=== PATIENT | male | born 1985 | race Hispanic/Latino ===

== ENCOUNTER → 2019-10-13 | Outpatient (REF) | payer OTHER ==
[2019-10-13 13:55] LABS: BASO % 0.4 % (0.0-1.0); EOS # 0.1 10^3/uL (0.0-0.5); EOS % 1.1 % (0.0-3.0); HEMATOCRIT 51.2 % (42.0-52.0); HEMOGLOBIN 17.1 g/dl (13.5-17.5); LYMPH # 2.3 10^3/uL (1.5-5.0); LYMPH % 29.3 % (24.0-44.0); MEAN CORPUSCULAR HEMOGLOBIN 31.1 pg (27.0-33.0); MEAN CORPUSCULAR HGB CONC 33.4 g/dl (32.0-36.5); MEAN CORPUSCULAR VOLUME 93.3 fl (80.0-96.0); MONO # 0.4 10^3/uL (0.0-0.8); MONO % 5.6 % (0.0-5.0); NEUTROPHILS % 63.2 % (36.0-66.0); PLATELET COUNT, AUTOMATED 251 10^3/uL (150-450); RED BLOOD COUNT 5.49 10^6/uL (4.30-6.10); WHITE BLOOD COUNT 7.9 10^3/uL (4.0-10.0)
[2019-10-16 09:11] LABS: D001-IgE D pteronyssinus 5.45 kU/L (Class IV); E005-IgE Dog Dander 8.29 kU/L (Class IV); G002-IgE Bermuda Grass 1.58 kU/L (Class III); G008-IgE Kentucky Bluegrass 3.51 kU/L (Class III); M001-IgE Penicillium chrysogen < 0.10 kU/L (Class 0); M002 IgE Cladosporium herbaru < 0.10 kU/L (Class 0); M003 IgE Aspergillus fumigatu < 0.10 kU/L (Class 0); M006-IgE Alternaria alternata < 0.10 kU/L (Class 0); T001-IgE Maple/Box Elder 0.45 kU/L (Class I); T006-IgE Cedar, Mountain 4.89 kU/L (Class IV); T007-IgE Oak, White 2.79 kU/L (Class III); T008-IgE Elm, American 0.11 kU/L (Class 0/I); T015-IgE Ash, White 0.47 kU/L (Class I); T041-IgE Hickory, White 1.13 kU/L (Class II); T070-IgE White Mulberry < 0.10 kU/L (Class 0); W001-IgE Ragweed, Short 5.27 kU/L (Class IV); W009-IgE Plantain, English 0.13 kU/L (Class 0/I); W014-IgE Pigweed, Rough < 0.10 kU/L (Class 0)
== END ==
LOC: M LAB REF 12:54
PROVIDERS: ATTEND Physician Assistant
DX: J45.998 Other asthma (principal)

== ENCOUNTER → 2019-10-13 | Outpatient (CLI) | payer OTHER ==
--- NOTE | 2019-10-14 01:44 | REPPI ---
Clinical: Asthma . Comparison: None . Technique: PA and lateral. Findings: The mediastinum and cardiac silhouette are normal. The lung evans are clear and without acute consolidation, effusion, or pneumothorax. The skeletal structures are intact and normal. Impression: 1. No acute cardiopulmonary process. Electronically Signed by Harris Tena MD 10/14/2019 01:35 A
== END ==
LOC: M PLAIMG 11:54
PROVIDERS: ATTEND Physician Assistant
DX: J45.998 Other asthma (principal)

== ENCOUNTER 2020-10-11 13:57 | Inpatient (IN) | payer OTHER ==
[~2020-10-11] VITALS: Ht 177.8 cm; Wt 99.1 kg
[2020-10-11] MEDS ORDERED: methylPREDNISolone 125MG 2ML VIAL IV ONE (14:15)
[2020-10-11] MEDS: COMBIVENT RESPIMAT 100-20MCG INHALER 4GM INH SCH ×3 (14:29→14:59)
[2020-10-11] MEDS ORDERED: ACETAMINOPHEN TAB 650MG DOSE (2X325MG) PO ONE (14:30)
--- NOTE | 2020-10-11 14:35 | REP ---
INDICATION: Coronavirus workup. COMPARISON: 13 October 2019. TECHNIQUE: Portable upright AP chest radiograph. FINDINGS: Monitoring electrodes are visible. There are patchy peripheral interstitial infiltrates bilaterally. These are new compared with the prior study. Pleural angles are sharp. Heart is not enlarged. No bony abnormality is seen. Commonly reported imaging features of COVID 19 pneumonia are present. Other processes such as influenza pneumonia, drug toxicity, and connective tissue disease can produce a similar pattern. IMPRESSION: Multiple bilateral areas of peripheral interstitial infiltrate have developed consistent with pneumonia.. <Electronically signed by Jon Dunn > 10/11/20 [id number]
--- OUTSIDE RECORDS SUMMARY | 2020-10-11 14:40 | CCD | Continuity of Care Document ---
Author Author Robert GOLDBERG PA Organization Unknown Address [address] [place] [address] Phone [phone] Care Team Providers Care Air Conditioning Engineer Name Role Phone Pascual Cuevas MD AUTM Unavailable [place] Provider AUTM [phone] Problems Active Problems Provider Date Uncomplicated moderate persistent asthma NENO Davey Onset: 02/08/2020 Social History Type Date Description Comments Sex Unknown Tobacco Use Reviewed: 07/30/20 Non Smoker Smoking Status Reviewed: 07/30/20 Non Smoker Allergies, Adverse Reactions, Alerts Active Allergies Reaction Severity Comments Date Shellfish-Derived Products 1 09/29/2019 Iodine / Sodium Iodide 07/30 Inactive Allergies NKDA 10/13/2019 Medications Active Medications SIG Qnty Indications Ordering Provide r Date Flovent HFA 220mcg/Act Aerosol 2 puff twice a day 12gm J45.40 Delfino Grullon D.O. 12/26/2019 Spiriva Handihaler 18mcg Capsules 1 cap inhalation every in the morning 30caps J45.998 Delfino Grullon D.O. 10/13/2019 Albuterol Sulfate HFA 108(90Base) mcg/Act Aerosol inhale two puffs by mouth four times a day as needed 8.500gm Delfino Grullon D.O. Zyrtec Allergy 10mg Tablets 1 tab by mouth every day 30tabs Unknown Claritin 10mg Tablets 1 tab by mouth every day 30tabs Unknown Advair Diskus 500-50mcg/Dose Aeros ol 1 puff twice a day 60units Iram Loja.O. CPAP Device Unknown Singulair 10mg Tablets 1 by mouth every night at bedtime 30tabs Delfino Grullon D.O. Immunizations Description No Information Available Vital Signs Date Vital Result Comment 07/30/2020 1:11pm BP Systolic 130 mmHg BP Diastolic 90 mmHg Heart Rate 107 /min O2 % BldC Oximetry 97 % Height 69 inches 5'9" Weight 232.00 lb in uniform BMI (Body Mass Index) 34.3 kg/m2 [place] Body Weight 160 lb Weight 105.235 kg 04/09/2020 3:19pm BP Systolic 138 mmHg BP Diastolic 92 mmHg Heart Rate 91 /min O2 % BldC Oximetry 97 % Body Temperature 96.7 F Height 69 inches 5'9" Weight 232.25 lb BMI (Body Mass Index) 34.3 kg/m2 [place] Body Weight 160 lb Weight 105.349 kg Results Test Acquired Date Facility Test Result H/L Range Note FVL/Cedric 04/09/2020 [facility] SEE IMAGE FVC-Pred 5.26 L FVC-Pre 4.90 L FVC-%Pred-Pre 93 L FVC-LLN 4.35 L Fev1-Pred 4.27 L Fev1-Pre 3.42 L Fev1-%Pred-Pre 80 L Fev1-LLN 3.50 L Fev6-Pred 5.18 L Fev6-Pre 4.84 L Fev6-%Pred-Pre 93 L Fev6-LLN 4.29 L Sdw5cmp-Eklb 81 % Dyp6uzr-Dbk 70 % Vtj9dbw-%Pred-Pre 85 % Ogf5jjs-MBG 72 % Ojk1cto-Hnyp 98 % Uyk9vnf-Frf 99 % Wnc9ctj-%Pred-Pre 100 % FEFMax-Pred 10.03 L/E/sec FEFMax-Pre 7.69 L/E/sec FEFMax-%Pred-Pre 76 L/E/sec FEFMax-LLN 7.78 L/E/sec Trz8165-Xwnw 4.23 L/E/sec Ogl6389-Dtw 2.38 L/E/sec Kuv1083-%Pred-Pre 56 L/E/sec Qyl7251-GQQ 2.67 L/E/sec ExpTime-Pre 7.52 sec Fcv2hyb7-Bumg 83 % Cda6mlm6-Rsl 71 % Zhw1bsh0-%Pred-Pre 85 % Ksr1faw7-FOK 74 % FVL/[place] 02/08/2020 [facility]ep[facility] SEE IMAGE FVC-Pred 5.26 L FVC-Pre 4.93 L FVC-%Pred-Pre 93 L FVC-LLN 4.35 L Fev1-Pred 4.27 L Fev1-Pre 3.32 L Fev1-%Pred-Pre 77 L Fev1-LLN 3.50 L Fev6-Pred 5.18 L Fev6-Pre 4.92 L Fev6-%Pred-Pre 95 L Fev6-LLN 4.29 L Dfd5wvh-Wzff 81 % Esh8acr-Kvg 67 % Qik2gxq-%Pred-Pre 82 % Ivo3wpt-UPT 72 % Afn9nln-Jwdh 98 % Edo7sxl-Hdr 100 % Iof0xoc-%Pred-Pre 101 % FEFMax-Pred 10.03 L/E/sec FEFMax-Pre 8.17 L/E/sec FEFMax-%Pred-Pre 81 L/E/sec FEFMax-LLN 7.78 L/E/sec Qus8933-Rkgs 4.23 L/E/sec Vhm3727-Mjo 2.24 L/E/sec Dqk9661-%Pred-Pre 53 L/E/sec Bay3193-FEC 2.67 L/E/sec ExpTime-Pre 6.26 sec Ooa4hvp9-Gvle 83 % Sat9usk0-Xue 67 % Wcc0olk5-%Pred-Pre 81 % Neh5qxf1-CUO 74 % Procedures Date Code Description Status 04/09/2020 51355 Spirometry Completed 02/08/2020 72697 Spirometry Completed Medical Devices Description No Information Available Encounters Type Date Location Provider Dx Diagnosis Office Visit 04/09/2020 3:30p [facility] NENO Davey J45.40 Moderate persistent asthma, uncomplicate d Office Visit 02/08/2020 2:00p [facility] NENO Davey J45.40 Moderate persistent asthma, uncomplicate d Assessments Date Code Description Provider 04/09/2020 J45.40 Moderate persistent asthma, unco mplNENO Villavicencio 02/08/2020 J45.40 Moderate persistent asthma, unco mplicated NENO Davey Plan of Treatment 04/09/2020 - NENO Davey* J45.40 Moderate persistent asthma, uncomplicated * * Follow up:* Follow up in 2 months with cedric Functional Status Functional Condition Comment Date Status Independent with all ADL's Activ e Independent with all IADL's Acti ve Mental Status Mental Condition Comment Date Status None Active Can understand information Activ e Referrals Refer to Reason for Referral Status Appt Date Alexi Goldberg, R.P.A.-C. [id number] F/U DX ASTHMA Created [facility] [address] [place], [place] [address] [phone]
--- OUTSIDE RECORDS SUMMARY | 2020-10-11 14:40 | CCD | Continuity of Care Document ---
Author Author Human Resource Intern, Robert Gandhi Organization Unknown Address Unknown Phone Unavailable Care Team Providers Care Network Operations Center Engineer Name Role Phone Joseph Kraft Unavailable Problems No Problem Information Available Allergies and Adverse Reactions No Allergy Information Available Medications No Medication Information Available Social History No Social History Information Available Tobacco smoking consumption unknown Male Results No Known Results No Result Information Available Vital Signs No Vital Observation Information Available Advance Directives HIPAA - Patient specified Unknown. Payers [facility] Group Number: [address] [facility] [address] [place] tel: Robert Borja [address] [facility] [address] [place] tel:
--- OUTSIDE RECORDS SUMMARY | 2020-10-11 14:41 | CCD ---
Author Author [facility] Organization [facility] Address Unknown Phone Unavailable Care Team Providers Care Director [employer] Operations Name Role Phone Tee PAC, Jovan Unavailable Unavailable Cecil PAC, Jovan Unavailable Unavailable Cecil PAC, Jovan Unavailable Unavailable Tee PAC, Jovan Unavailable Unavailable Cecil PAC, Jovan Unavailable Unavailable Tee PAC, Jovan Unavailable Unavailable Tee PAC, Jovan Unavailable Unavailable Cecil PAC, Jovan Unavailable Unavailable ESPINOZA NUÑEZ MD Unavailable [phone] ESPINOZA NUÑEZ MD Unavailable [phone] ESPINOZA NUÑEZ MD Unavailable [phone] ESPINOZA NUÑEZ MD Unavailable [phone] ESPINOZA NUÑEZ MD Unavailable [phone] ESPINOZA NUÑEZ MD Unavailable [phone] ESPINOZA NUÑEZ MD Unavailable [phone] ESPINOZA NUÑEZ MD Unavailable [phone] ESPINOZA NUÑEZ MD Unavailable [phone] ESPINOZA NUÑEZ MD Unavailable [phone] ESPINOZA NUÑEZ MD Unavailable [phone] ESPINOZA NUÑEZ MD Unavailable [phone] ESPINOZA NUÑEZ MD Unavailable [phone] ESPINOZA NUÑEZ MD Unavailable [phone] ESPINOZA NUÑEZ MD Unavailable [phone] BLACK, ESPINOZA CHRISTOPHER MD Unavailable [phone] BLACK, ESPINOZA ANDERSON MD Unavailable [phone] BLACK, ESPINOZA ANDERSON MD Unavailable [phone] BLACK, ESPINOZA ANDERSON MD Unavailable [phone] BLACK, ESPINOZA ANDERSON MD Unavailable [phone] BLACK, ESPINOZA ANDERSON MD Unavailable [phone] BLACK, ESPINOZA ANDERSON MD Unavailable [phone] BLACK, ESPINOZA ANDERSON MD Unavailable [phone] BLACK, ESPINOZA ANDERSON MD Unavailable [phone] BLACK, ESPINOZA ANDERSON MD Unavailable [phone] BLACK, ESPINOZA ANDERSON MD Unavailable [phone] BLACK, ESPINOZA ANDERSON MD Unavailable [phone] BLACK, ESPINOZA ANDERSON MD Unavailable [phone] BLACK, ESPINOZA ANDERSON MD Unavailable [phone] BLACK, ESPINOZA ANDERSON MD Unavailable [phone] BLACK, ESPINOZA ANDERSON MD Unavailable [phone] BLACK, ESPINOZA ANDERSON MD Unavailable [phone] BLACK, ESPINOZA ANDERSON MD Unavailable [phone] BLACK, ESPIONZA ANDERSON MD Unavailable [phone] BLACK, ESPINOZA ANDERSON MD Unavailable [phone] BLACK, ESPINOZA ANDERSON MD Unavailable [phone] BLACK, ESPINOZA ANDERSON MD Unavailable [phone] BLACK, ESPINOZA ANDERSON MD Unavailable [phone] BLACK, ESPINOZA ANDERSON MD Unavailable [phone] BLACK, ESPINOZA ANDERSON MD Unavailable [phone] BLACK, ESPINOZA ANDERSON MD Unavailable [phone] BLACK, ESPINOZA ANDERSON MD Unavailable [phone] BLACK, ESPINOZA ANDERSON MD Unavailable [phone] BLACK, ESPINOZA ANDERSON MD Unavailable [phone] BLACK, ESPINOZA ANDERSON MD Unavailable [phone] BLACK, ESPINOZA ANDERSON MD Unavailable ([phone] BLACK, ESPINOZA ANDERSON MD Unavailable ([phone] 05 BLACK, ESPINOZA ANDERSON MD Unavailable ([phone] 05 BLACK, ESPINOZA ANDERSON MD Unavailable ([phone] UNKNOWN, [facility] Unavailable Unavailable TURRIN, SAURAV Unavailable Unavailable TURRIN, SAURAV Unavailable Unavailable TURRIN, SAURAV Unavailable Unavailable TURRIN, SAURAV Unavailable Unavailable GOLDBERG, M ANGEL PA Unavailable Unavailable GOLDBERG, M ANGEL PA Unavailable Unavailable GOLDBERG, M ANGEL PA Unavailable Unavailable GOLDBERG, M ANGEL PA Unavailable Unavailable GOLDBERG, M ANGEL PA Unavailable Unavailable GOLDBERG, M ANGEL PA Unavailable Unavailable GOLDBERG, M ANGEL PA Unavailable Unavailable GOLDBERG, M ANGEL PA Unavailable Unavailable GOLDBERG, M ANGEL PA Unavailable Unavailable GOLDBERG, M ANGEL PA Unavailable Unavailable GOLDBERG, M ANGEL PA Unavailable Unavailable GOLDBERG, M ANGEL PA Unavailable Unavailable GOLDBERG, M ANGEL PA Unavailable Unavailable GOLDBERG, M ANGEL PA Unavailable Unavailable GOLDBERG, M ANGEL PA Unavailable Unavailable GOLDBERG, M ANGEL PA Unavailable Unavailable GOLDBERG, M ANGEL PA Unavailable Unavailable GOLDBERG, M ANGEL PA Unavailable Unavailable GOLDBERG, M ANGEL PA Unavailable Unavailable GOLDBERG, M ANGEL PA Unavailable Unavailable GOLDBERG, M ANGEL PA Unavailable Unavailable GOLDBERG, M ANGEL PA Unavailable Unavailable GOLDBERG, M ANGEL PA Unavailable Unavailable GOLDBERG, M ANGEL PA Unavailable Unavailable GOLDBERG, M ANGEL PA Unavailable Unavailable GOLDBERG, M ANGEL PA Unavailable Unavailable GOLDBERG, M ANGEL PA Unavailable Unavailable GOLDBERG, M ANGEL PA Unavailable Unavailable GOLDBERG, M ANGEL PA Unavailable Unavailable GOLDBERG, M ANGEL PA Unavailable Unavailable GOLDBERG, M ANGEL PA Unavailable Unavailable GOLDBERG, M ANGEL PA Unavailable Unavailable GOLDBERG, M ANGEL PA Unavailable Unavailable Joseph TOBIAS MD Unavailable Unavailable Joseph TOBIAS MD Unavailable Unavailable Joseph TOBIAS MD Unavailable Unavailable Joseph TOBIAS MD Unavailable Unavailable Joseph TOBIAS MD Unavailable Unavailable Joseph TOBIAS MD Unavailable Unavailable Joseph TOBIAS MD Unavailable Unavailable Joseph TOBIAS MD Unavailable Unavailable Joseph TOBIAS MD Unavailable Unavailable Re-disclosure Warning The records that you are about to access may contain information from federally-assisted alcohol or drug abuse programs. If such information is present, then the following federally mandated warning applies: This information has been disclosed to you from records protected by federal confidentiality rules (42 CFR part 2). The federal rules prohibit you from making any further disclosure of this information unless further disclosure is expressly permitted by the written consent of the person to whom it pertains or as otherwise permitted by 42 CFR part 2. A general authorization for the release of medical or other information is NOT sufficient for this purpose. The Federal rules restrict any use of the information to criminally investigate or prosecute any alcohol or drug abuse patient.The records that you are about to access may contain highly sensitive health information, the redisclosure of which is protected by Article 27-F of the [facility] Public Health law. If you continue you may have access to information: Regarding HIV / AIDS; Provided by facilities licensed or operated by the [facility] Office of Mental Health; or Provided by the [facility] Office for People With Developmental Disabilities. If such information is present, then the following [facility] mandated warning applies: This information has been disclosed to you from confidential records which are protected by state law. State law prohibits you from making any further disclosure of this information without the specific written consent of the person to whom it pertains, or as otherwise permitted by law. Any unauthorized further disclosure in violation of state law may result in a fine or care home sentence or both. A general authorization for the release of medical or other information is NOT sufficient authorization for further disc losure. Allergies and Adverse Reactions Type Description Substance Reaction Status Data Source(s ) Drug Allergy Drug Allergy NKDA [facility] ([facility], ) Encounters Encounter Providers Location Date Indications Data Source(s ) Emergency Attender: SAURAV SELLERSConsultant: MYCHAL HDEZ 10/03/2020 05:16:00 PM EST - 10/03/2020 08:01:00 PM [facility] Patient discharged. Emergency Attender: RANDY TOBIAS MD 07/15 06:31:00 PM EDT - 07/15/2020 06:37:00 PM EDT [facility] Patient discharged. Outpatient Attender: Jovan BHATIA 05/23 09:08:59 AM EDT - 06/15/2020 05:30:00 AM EDT [facility] Patient discharged. Outpatient 05/24/2020 11:22:31 AM EDT - 020 05:30:00 AM EDT [facility] Patient discharged. Outpatient Attender: ANGEL Vega/[place] [facility] 04/09/2020 03:30:00 PM EDT [facility] ([facility], ) Outpatient Attender: ANGEL Brownang/[place] [facility] 02/08/2020 02:00:00 PM EDT [facility] ([facility], ) Outpatient Attender: ANGEL Brownang/[place] 12/26/2019 03:30:00 PM EDT [facility] ([facility], ) Outpatient 10/18/2019 11:01:00 AM EST [facility] Outpatient Attender: ANGEL Vega/[place] 10/13/2019 09:30:00 AM EST [facility] ([facility], ) Emergency Attender: SAURAV SELLERS 2019 07:59:00 PM EST - 10/06/2019 08:48:00 PM [facility] Patient discharged. Emergency Attender: JUSTIN NUÑEZ MD 1 11/18/2018 03:07:00 PM EST - 09/17/2019 03:14:00 PM [facility] Patient discharged. Medications Medication Brand Name Start Date Product Form Dose Route Admi nistrative Instructions Pharmacy Instructions Status Indications Reaction Description Data Source(s) 120 ACTUAT Fluticasone propionate 0.22 MG/ACTUAT Meter ed Dose Inhaler [Flovent] Flovent HFA 12/26/2019 12:00:00 AM EDT RESPIRATORY activ e [facility] ([facility], ) tiotropium 0.018 MG/ACTUAT Inhalant Powder [Spiriva] Spiriva Handihaler 10/13/2019 12:00:00 AM EST active [facility] ([facility], ) Insurance Providers Payer name Policy type / Coverage type Policy ID Covered democrat ID Covered democrat's relationship to rodriguez Policy Rodriguez Plan Information [facility] [id number] SP [id number] [facility] - O/P [id number] 18 [id number] [facility] [id number] SP [id number] [facility] O [id number] S [id number] [facility] - PHYSICIAN [id number] 18 [id number] [facility] ACTIVE DUTY [id number] SP [id number] Problems, Conditions, and Diagnoses Code Display Name Description Problem Type Effective Dates Data Source(s) 895820385 Uncomplicated moderate persistent asthma Uncomplicated moderate persistent asthma Problem 02/08/2020 12:00:00 AM EDT MONICA ([facility], ) T58881 Invalid ICD10 Description Invalid ICD10 Description Di agnosis 10/03/2020 05:16:00 PM [facility] J069 Acute upper respiratory infection, unspe cified Acute upper respiratory infection, unspecified Diagnosis 10/03/2020 05:16:00 PM [facility] R509 Fever, unspecified Fever, unspecified Diagnosis 05:16:00 PM [facility] E56990 Unspecified asthma, uncomplicated Unspecified as thma, uncomplicated Diagnosis 07/15/2020 06:31:00 PM EDT [facility] Z760 Encounter for issue of repeat prescripti on Encounter for issue of repeat prescription Diagnosis 07/15/2020 06:31:00 PM T [facility] G4733 Obstructive sleep apnea (adult) (pediatr ic) Obstructive sleep apnea (adult) (pediatric) Diagnosis 06/14/2020 08:00:00 PM EDT [facility] R0683 Snoring Snoring Diagnosis 05/25/2020 08:30:00 PM ED T [facility] J4540 Moderate persistent asthma, uncomplicate d Moderate persistent asthma, uncomplicated Diagnosis 09/17/2019 03:07:00 PM [facility] Surgeries/Procedures Procedure Description Date Indications Data Source(s) Spirometry 04/09/2020 12:00:00 AM EDT JESENIA ([facility], ) Spirometry 02/08/2020 12:00:00 AM EDT JESENIA ([facility], ) Spirometry 10/13/2019 12:00:00 AM RENÉ Gosia BA ([facility], ) Results ID Date Data Source [id number] 10/03/2020 05:16:00 PM EST [facility] 1 OrderSheet [facility] Emergency Department [address] [place] [address] Phone #: ext- [phone] 10/03/2020 17:12 Patient: NIRMAL RAMAN Sex: M : 1985 Age: 34yWEIGHT:97.5 kg (S) HEIGHT:69 inches (S) BMI:31.8ALLERGIES: Iodinated Diagnostic AgentsCHIEF COMPLAINT: possible, flu exposure:, possible, COVID-19 exposure:, fever, cough, sore throat, muscleachesDIAGNOSIS: Influenza, Severe acute respiratory syndrome coronavirusLA B ORDERSOrder Description Priority Entered Acknowledged InitialedCORONAVIRUS STAT 17:32 10/03/2020 17:32 Moustapha Cuello-19 Veronica Cuello R.N.; R.N.(Symptomatic as Verbal order per;Defined by CDC) Justin Green(10/03/20) (First Test) P.AAurora-C(Not Hospitalized)(Not ) (NotResident inCongregate CareSetting) (NotEmployed inHealthcare Setting)Influenza Nasal A B STAT 17:32 10/03/2020 17:32 Veronica Cuello Julie R.N.; R.N. Verbal order per; Justin Rdz-CRapid Strep Screen STAT 17:32 10/03/2020 17:32 Veronica Cuello Julie R.N.; R.N. Verbal order per; Justin Rdz- CDIAGNOSTIC STUDY ORDERSOrder Description Priority Entered Acknowledged InitialedChest 2 View STAT 18:03 10/03/2020 Ack'd: 18:08 18:20 Inocencia,(Oxygen?(No)) Tami Slaughter P.A.-C; Reason for Study: congestion, ? COVIDMEDICATION/IV/DRIP/FLUID ORDERS 2 OrderSheet [facility] Emergency Department [address] [place] [address] Phone #: ext- [phone] 10/03/2020 17:12 Patient: NIRMAL RAMAN Sex: M : 1985 Age: 34yOrder Description Priority Entered Acknowledged InitialedTylenol 1 g PO X1 18:04 10/03/2020 Ack'd: 18:08 18:14 Wilma Cuelloose: 1000 mg Tami Slaughter R.N.(NOW x1) P.A.- C;Ibuprofen 600 mg 18:04 10/03/2020 Ack'd: 18:08 18:15 Meghan Cuello X1 dose: 600 Tami Slaughter R.N.mg (NOW x1) P.A.-C;GENERAL ORDERSOrder Description Priority Entered Acknowledged Initialed[Electronically signed by Aziza Roman R.N. (23:35 10/03/2020)][Electronically signed by Justin Green P.A.-C (11:27 10/04/2020)][Electronically locked by Aziza Roman R.N. (23:35 10/03/2020)] Name Value Range Interpretation Code Description Data Sherry rce(s) Supporting Document(s) ID Date Data Source [id number] 10/03/2020 05:16:00 PM EST [facility] 1 Medication Reconciliation Report [facility] Emergency Department [address] [place] [address] Phone #: [phone]- [phone] 10/03/2020 17:12 Patient: NIRMAL RAMAN Sex: M : 1985 Age: 34yWeight: 97.5 kgHeight/Length: 69 in.BMI: 31.8ALLERGIES: Iodinated Diagnostic AgentsThe patient's Home Medications are listed below:CONTINUE TAKING THE FOLLOWING MEDICATIONS: Advair Diskus Inhalation Albuterol Sulfate Inhalation Claritin Oral Flovent HFA Inhalat ion Nasal [place] ProAir HFA Inhalation Spiriva HandiHaler Inhalation ZyrTEC Allergy OralThe source(s) of the original Home Medication information:Not obtained.The following Medications were given to the patient in the Emergency Department:Tylenol [PO] PO 1000 mg, administered: 18:14 10/03/2020Ibuprofen [PO] PO 600 mg, administered: 18:15 10/03/2020The following Medications were prescribed to the patient:acetaminophen 500 mg capsule Take 2 capsule three times a day for 7 days -- Dispense 42 capsule.Refills: 0. Substitution permitted. 2 Medication Reconciliation Report [facility] Emergency Department [address] [place] [address] Phone #: [phone] ext- [phone] 10/03/2020 17:12 Patient: NIRMAL RAMAN Sex: M : 1985 Age: 34yPharmacy - [facility] - [address] ; [place] [address]. .IBU 800 mg tablet Take 1 tablet three times a day as needed for 7 days -- Dispense 21 tablet. Refills: 0.Substitution permitted.Pharmacy - [facility] - [address] [facility] ; [place] [address]. .Zofran 4 mg tablet Take 1 tablet three times a day for 3 days -- Dispense 9 tablet. Refills: 0.Substitution permitted.Pharmacy - [facility] - [address] [facility] ; [place] [address]. . -- Justin Green P.A.-C Name Value Range Interpretation Code Description Data Sherry e(s) Supporting Document(s) ID Date Data Source [id number] 10/03/2020 05:16:00 PM [place] [address] Medication Administration Record [facility] Emergency Department [address] [place] [address] Phone #: ext- [phone] 10/03/2020 17:12 Patient: NIRMAL RAMAN Sex: M : 1985 Age: 34yWeight: 97.5 kgHeight/Length: 69 inBMI: 31.8ALLERGIES: Iodinated Diagnostic Agents Date/Time Medication Administered Medication OrderedGiven TYLENOL [PO] (APAP) Tylenol 1 g PO X1 dose: 1000 mg18:14 10/03/2020 Dose: 1000 mg Tablets PO (NOW x1)Veronica Cuello R.N.Given IBUPROFEN [PO] Ibuprofen 600 mg PO X1 dose: 23712:15 10/03/2020 Dose: 600 mg Tablets PO mg (NOW x1)Veronica Cuello R.N. Name Value Range Interpretation Code Description Data Sherry rce(s) Supporting Document(s) ID Date Data Source [id number] 10/03/2020 05:16:00 PM [place] [address] General Instructions [facility] Emergency Department [address] [place] [address] Phone #: ext- [phone] 10/03/2020 17:12 Patient: NIRMAL RAMAN Sex: M : 1985 Age: 34y Coronavirus COVID-19 presumed (confirmatory testing pending) with upper respiratory infection. Influenza type B with upper respiratory infection.INSTRUCTIONS Take Tylenol (Acetaminophen) or Motrin (Ibuprofen) as needed for fever control. Take medication according to label instructions. Rest at home for one weeks (You are on a self quarantine x 1 week. This may be extended or decreased by [facility]. It is all dependent on when your test results are in.). Drink plenty of fluids. No dietary restrictions. ([facility]: [phone]. Please contact them in approx 3-4 days if you have not heard from them. You are on a self quarantine x 1 week. This may be extended or decreased by [facility]. It is all dependent on when your test results are in. I recommend to purchase a small finger pulse oximeter to monitor your O2 saturation at home. If becomes too low (<90%), please contact your PCP or return to the ER.). Warnings: Further evaluation is necessary. GENERAL WARNINGS: Return or contact your physician immediately if your condition worsens or changes unexpectedly, if not improving as expected, or if other problems arise. Your Current Medications: Your current home medications have been reviewed. CONTINUE TAKING THE FOLLOWING MEDICATIONS: Advair Diskus Inhalation. Albuterol Sulfate Inhalation. Claritin Oral. Flovent HFA Inhalation. Nasal [place]*. ProAir HFA Inhalation. Spiriva HandiHaler Inhalation. ZyrTEC Allergy Oral. Prescription Medications: acetaminophen 500 mg capsule Take 2 capsule three times a day for 7 days -- Dispense 42 capsule. Refills: 0. Substitution permitted. Pharmacy - [facility] - [address] [facility] ; [place] [address]. . 2 General Instructions [facility] Emergency Department [address] [place] [address] Phone #: ext- [phone] 10/03/2020 17:12 Patient: NIRMAL RAMAN Sex: M : 1985 Age: 34y IBU 800 mg tablet Take 1 tablet three times a day as needed for 7 days -- Dispense 21 tablet. Refills: 0. Substitution permitted. Pharmacy - [facility] ; [place] [address]. . Zofran 4 mg tablet Take 1 tablet three times a day for 3 days -- Dispense 9 tablet. Refills: 0. Substitution permitted. Pharmacy - [facility] ; [place] [address]. . Follow-up: Return to the emergency department as needed. Follow up with your healthcare provider in about two days if not better. Call for an appointment. Understanding of the discharge instructions verbalized by patient. ADDITIONAL INFORMATIONUnderstanding Coronavirus Disease 2019 (COVID- 19)Coronavirus disease 2019 (COVID-19) is a virus that causes a respiratory illness. It is caused by acoronavirus called 2019 novel coronavirus (2019-nCoV). There are many types of coronavirus.Coronaviruses are a very common cause of bronchitis. They may sometimes cause lung infection(pneumonia). Symptoms can range from mild to severe respiratory illness. These viruses are alsofound in some animals. COVID-19 was first found in people in [facility], in late 2019. In 2020,several cases of COVID-19 have been confirmed in the [place] COVID-19 is a rapidly-emerginginfectious disease. This means that scientists are actively researching it. There are informationupdates regularly.Public health officials are working to find the source. How the virus spreads is not yet fullyunderstood, but it seems to spread and infect people fairly easily. Some people who have beeninfected in an area may be unsure how or where they became infected. The virus may be spreadthrough droplets of fluid that a person coughs or sneezes into the air. It may be spread if you touch asurface with virus on it, such as a handle or object, and then touch your eyes, nose, or mouth.For the latest information, visit the CDC website at www.cdc.gov/coronavirus/2019- ncov.What are the symptoms of COVID-19?Some people have no symptoms or mild symptoms. Symptoms may appear 2 to 14 days aftercontact with the virus. Symptoms can include: 3 General Instructions [facility] Emergency Department [address] [place] [address] Phone #: ext- [phone] 10/03/2020 17:12 Patient: NIRMAL RAMAN Sex: M : 1985 Age: 34y Fever Coughing Trouble breathingWhat are possible complications from COVID-19?In many cases, this virus can cause infection (pneumonia) in both lungs. In some cases, this cancause .How is COVID-19 diagnosed?Your healthcare provider will ask about your symptoms. He or she will also ask about your recenttravel and contact with sick people. If your healthcare provider thinks you may have COVID-19, chloe zee will work closely with your local health department and the CDC on testing. Follow all instructionsfrom your healthcare provider. COVID-19 is diagnosed by: Nasal and throat swab. A cotton-tipped swab is wiped inside your nose or throat. This is done to check for viruses in your nasal mucus. Sputum culture. A small sample of mucus coughed from your lungs (sputum) is collected if you have a cough. It is checked for the virus.How is COVID-19 treated?There is currently no medicine to treat the virus. Treatment is done to help your body while it fightsthe virus. This is known as supportive care. Supportive care may include: Pain medicine. These include acetaminophen and ibuprofen. They are used to help ease pain and reduce fever. Bed rest. This helps your body fight the illness.For severe illness, you may need to stay in the hospital. Care during severe illness may include: IV (intravenous) fluids.These are given through a vein to help keep your body hydrated. Oxygen. Supplemental oxygen or ventilation with a breathing machine (ventilator) may be given. This is done so you get enough oxygen in your body.Are you at risk for COVID- 19?You are at risk for infection if you've been to a place where people have been sick with this virus or ifthere are people with COVID-19 in your area. You are at risk if you: Recently traveled to an area with a COVID-19 outbreak 4 General Instructions [facility] Emergency Department [address] [place] [address] Phone #: ext- [phone] 10/03/2020 17:12 Patient: NIRMAL RAMAN Sex: M : 1985 Age: 34y Had contact with a sick person who recently traveled to an area with a COVID- 19 outbreak Had contact with a person who was diagnosed with or who may have COVID-19How can COVID-19 be prevented?There is no vaccine yet. The best prevention is to not have contact with the virus. The CDC advisesthat people should not travel to areas where there are COVID-19 outbreaks right now for any reasonthat is not urgent. For the most current CDC travel advisories, visit the CDC website atwww.cdc.gov/coronavirus/2019-ncov/travelers. To help prevent spreading the infection, wash your hands often, or use an alcohol-based hand azure architect.The CDC advises that you shouldn't wear a face mask if you are not sick.To protect yourself from COVID-19: Wash your hands often with soap and clean, running water for at least 20 seconds. If you don't have access to soap and water, use an alcohol-based hand azure architect often. Make 5 General Instructions [facility] Emergency Department [address] [place] [address] Phone #: ext- [phone] 10/03/2020 17:12 Patient: NIRMAL RAMAN Sex: M : 1985 Age: 34y sure it has at least 60% alcohol. Don't touch your eyes, nose, or mouth unless you have clean hands. Don't have contact with people who are sick. Follow local instructions about being in public. For example, you may be told to not use public transport for a period of time. Experts don't know if animals spread 2019-nCoV. But it's always a good idea to wash your hands after touching any animals. Don't touch animals that may be sick. Don't share eating or drinking tools with sick people. Don't kiss someone who is sick. Clean surfaces often with disinfectant.If you were in an area with COVID-19 in the last 14 days: Call your healthcare provider. He or she can talk with local health staff to see what action may be needed. Follow all instructions from your provider. Take your temperature every morning and evening for at least 14 days. This is to check for fever. Keep a record of the readings. Keep watch for symptoms of the virus. Tell your provider right away if you have symptoms. Stay home if you are sick for any reason.If you were in an area with COVID-19 and have a fever or other symptoms: Stay home. Don't panic. Keep in mind that other i llnesses can cause similar symptoms. Stay away from work, school, and public places. Limit physical contact with family members. Don't kiss anyone or share eating or drinking utensils. Clean surfaces you touch with disinfectant. This is to help prevent the virus from spreading. Cough or sneeze into a tissue, then throw away the tissue in the trash. Or cough or sneeze into the bend of your elbow. Wear a face mask. Call your healthcare provider. Explain that you have been exposed to COVID-19 and have symptoms. Do this before going to any hospital. Wait for instructions. 6 General Instructions [facility] Emergency Department [address] [place] [address] Phone #: [phone] 10/03/2020 17:12 Patient: NIRMAL RAMAN Sex: M : 1985 Age: 34y Keep in mind that healthcare staff may wear protective equipment such as masks, gowns, gloves, and eye protection. You may be put in a separate room. This is to prevent the possible virus from spreading. Tell the healthcare staff about recent travel. This includes local travel on public transport. Staff may need to find other people you have been in contact with. Follow all instructions the healthcare staff give you.If you have been diagnosed with COVID-19 Stay home. Don't leave your home unless you need to get medical care. Follow all instructions from your healthcare provider. Call your healthcare provider's office before going. They can prepare and give you instructions. This will help prevent the virus from spreading. Don't go to work, school, or public areas. Don't use public transport or taxis. Stay away from other people in your home. Wear a face mask. This is to protect other people from your germs. They do not need to wear face masks. Don't share household items or food. Cover your face with a tissue when you cough or sneeze. Throw the tissue away. Then wash your hands. Wash your hands often.Caregivers should: Follow all instructions from healthcare staff. Wear protective clothing as advised. Make sure the sick person wears a mask. Wash hands often. Keep track of the sick person's symptoms. Clean surfaces, fabrics, and laundry thoroughly. Keep other people away from the sick person. 7 General Instructions [facility] Emergency Department [address] [place] [address] Phone #: [phone] 10/03/2020 17:12 Patient: NIRMAL RAMAN Sex: M : 1985 Age: 34yWhen to call your healthcare providerCall your healthcare provider: If you've recently traveled and have symptoms If you have been diagnosed with COVID-19 and your symptoms are worse 1999- 2019 [employer]. [address] [place] [address]. All rights reserved. This information is not intended as asubstitute for professional medical care. Always follow your healthcare professional's instructions.Influenza (Adult) 8 General Instructions [facility] Emergency Department [address] [place] [address] Phone #: ext- [phone] 10/03/2020 17:12 Patient: NIRMAL RAMAN Sex: M : 1985 Age: 34yInfluenza is also called the flu. It's a viral illness that affects the air passages of your lungs. It'sdifferent from the common cold. The flu can easily be passed from one to person to another. It maybe spread through the air by coughing and sneezing. Or it can be spread by touching the sick personand then touching your own eyes, nose, or mouth.The flu starts 1 to 3 days after you are exposed to the flu virus. It may last for 1 to 2 weeks butsometimes people feel tired or fatigued for many weeks afterward. You usually don't need to takeantibiotics unless you are at high risk for or have a complication . This might be an ear or sinusinfection or pneumonia.Symptoms of the flu may be mild or severe. They can include extreme tiredness (wanting to stay in [address] [place] [address] Emergency [address] [place] [address] Phone #: ext- [phone] 10/03/2020 17:12 Patient: NIRMAL RAMAN Sex: M : 1985 Age: 34ybed all day), chills, fevers, muscle aches, soreness with eye movement, headache, and a dry,hacking cough.Antiviral medicine for the flu is available by prescription. If you start taking it within 48 hours, it mayhelp reduce how long your symptoms last and how severe they are. Your provider may do a test tofind out if you have influenza and which strain you have.Home careFollow these guidelines when caring for yourself at home: Stay away from cigarette smoke, whether yours or other people's. Acetaminophen or ibuprofen will help ease your fever, muscle aches, and headache. Don't give aspirin to anyone younger than 18 who has the flu. This can cause a serious condition called Niurka syndrome. Nausea, loose stools, and loss of appetite are common with the flu. Eat light meals. Drink 6 to 8 glasses of liquids every day. Good choices are water, sport drinks, soft drinks without caffeine, juices, tea, and soup. Extra fluids will also help loosen secretions in your nose and lungs. Zezq-lia-qrsofrv cold medicines will not make the flu go away faster. But the medicines may help with coughing, sore throat, and congestion in your nose and sinuses. Don't use a decongestant if you have high blood pressure. Stay home until your fever has been gone for at least 24 hours without using medicine to reduce fever.Follow-up careFollow up with your healthcare provider, or as advised, if you are not getting better over the nextweek.If you are age 65 or older, talk with your provider about getting a pneumococcal vaccine every 5years. You should also get this vaccine if you have chronic asthma or COPD. All adults should get aflu vaccine every fall. Ask your provider about this.When to seek medical adviceCall your healthcare provider right away if you have the flu and any of these occur: Cough with lots of colored mucus (sputum) or blood in your mucus Chest pain, shortness of breath, wheezing, or trouble breathing 10 General Instructions [facility] Emergency Department [address] [place] [address] Phone #: [phone] ext- [phone] 10/03/2020 17:12 Patient: NIRMAL RAMAN Sex: M : 1985 Age: 34y Severe headache, or face, neck, or ear pain New rash with fever Fever of 100.4F (38C) or higher, or as directed by your healthcare provider Confusion, behavior change, or seizure Severe weakness or dizziness You get a new fever or cough after getting better for a few daysAlso call your provider if you have flu symptoms and have a weakened immune system or are takingmedicines that can weaken your immune system. These include steroids and certainanti-inflammatory medicines. [id number] [employer]. [address] [place] [address]. All rights reserved. This information is not intended as asubstitute for professional medical care. Always follow your healthcare professional's instruct ions. Prevention steps for People with confirmed or suspected COVID-19 (including persons under investigation) who do not need to be hospitalized And People with confirmed COVID-19 who were hospitalized and determined to be medically stable to go home Your healthcare provider and public health staff will evaluate whether you can be cared for at home. If it isdetermined that you do not need to be hospitalized and can be isolated at home, you will be monitored by staff fromyour local or [facility] health department. You should follow the prevention steps below until a healthcare provider orlocal or [facility] department says you can return to your normal activities. Stay home except to get medical care People who are mildly ill with COVID-19 are able to isolate at home during their illness. You should restrict activities outside yourhome, except for getting medical care. Do not go to work, school, or public areas. Avoid using public transportation, ride-sharing, ortaxis. Separate yourself from other people and animals in your home People: As much as possible, you should stay in a specificroom and away from other people in your home. Also, you should use a separate bathroom, if available.Animals: You should restrict contact with pets and other animals while you are sick with COVID-19, just like you would around otherpeople. Although there have not been reports of pets or other animals becoming sick with COVID-19, it is still recommended thatpeople sick with COVID-19 limit contact with animals until more information is known about the virus. When possible, have anothermember of your household care for your animals while you are sick. If you are sick with COVID-19, avoid contact with your pet,including petting, snuggling, being kissed or licked, and sharing food. If you must care for your pet or be around animals while you aresick, wash your hands before and after you interact with pets and wear a facemask. See https://www.cdc.gov/coronavirus/2019-ncov/faq.html#8417-lZsV-vsc-animals for more information. 11 General Instructions [facility] Emergency Department [address] [place] [address] Phone #: ext- [phone] 10/03/2020 17:12 Patient: NIRMAL RAMAN Sex: M : 1985 Age: 34yCall ahead before visiting your doctorIf you have a medical appointment, call the healthcare provider and tell them that you have or may have COVID-19. This will helpthe healthcare provider's office take steps to keep other people from getting infected or exposed.Wear a facemaskYou should wear a facemask when you are around other people {e.g., sharing a room or vehicle} or pets and before you enter ealthcare provider's office. If you are not able to wear a facemask {for example, because it causes trouble breathing}, thenpeople who live with you should not stay in the same room with you, or they should wear a facemask if they enter your room.Cover your coughs and sneezesCover your mouth and nose with a tissue when you cough or sneeze. Throw used tissues in a lined trash can. Immediately washyour hands with soap and water for at least 20 seconds or, if soap and water are not available, clean your hands with analcohol-based hand azure architect that contains at least 60% alcohol.Clean your hands oftenWash your hands often with soap and water for at least 20 seconds, especially after blowing your nose, coughing, or sneezing;going to the bathroom; and before eating or preparing food. If soap and water are not readily available, use an alcohol-based handsanitizer with at least 60% alcohol, covering all surfaces of your hands and rubbing them together until they feel dry.Soap and water are the best option if hands are visibly dirty. Avoid touching your eyes, nose, and mouth with unwashedhands.Flu Like Symptoms / Coronavirus Exposure - 30a Page 1 of 2Avoid sharing personal household itemsYou should not share dishes, drinking glasses, cups, eating utensils, towels, or bedding with other people or pets in yourflowers hospitale. After using these items, they should be washed thoroughly with soap and water.Clean all "high-touch" surfaces everydayHigh touch surfaces include counters, tabletops, doorknobs, bathroom fixtures, toilets, phones, keyboards, tablets, and bedsidetables. Also, clean any surfaces that may have blood, stool, or body fluids on them. Use a household cleaning spray or wipe,according to the label instructions.Labels contain instructions for safe and effective use of the cleaning product including precautions you should take when applyingthe product, such as wearing gloves and making sure you have good ventilation during use of the product.Monitor your symptomshttps://www.Proterraystem.com/index.php Seek prompt medical attention if your illness is worsening {e.g., difficulty breathing}. Before seeking care, call your healthcareprovider and tell them that you have, or are being evaluated for, COVID-19. Put on a facemask before you enter the facility.These steps will help the healthcare provider's office to keep other people in the office or waiting room from getting infected orexposed. Ask your healthcare provider to call the local or state health department. Persons who are placed under activemonitoring or facilitated self- monitoring should follow instructions provided by their local health department or occupational healthprofessionals, as appropriate. When working with your local health department check their available hours.If you have a medical emergency and need to call 911, notify the dispatch personnel that you have, or are being evaluated forCOVID-19. If possible, put on a facemask before emergency medical services arrive.Discontinuing home isolationPatients with confirmed COVID-19 should remain under home isolation precautions until the risk of secondary transmission toothers is thought to be low. The decision to discontinue home isolation precautions should be made on a papb-wt-ldnu basis, inconsultation with healthcareproviders and state and local health departments.Contacts [employer]. 12 General Instructions [facility] Emergency Department [address] [place] [address] Phone #: ext- [phone] 10/03/2020 17:12 Patient: NIRMAL RAMAN Sex: M : 1985 Age: 34yOnline informationhttps://www.cdc.gov/coronavirus/2019- ncov/about/index.html Content source: National Center for Immunization and Respiratory Diseases (NCIRD), Division of Viral Diseases Recommended precautions for household members, intimate partners, and caregivers in a nonhealthcare setting1 of A patient with symptomatic laboratory-confirmed COVID-19 or A patient under investigationHousehold members, intimate partners, and caregivers in a nonhealthcare setting may have close contact2 with aperson with symptomatic, laboratory-confirmed COVID-19 or a person under investigation. Close contacts shouldmonitor their health; they should call their healthcare provider right away if they develop symptoms suggestive of COVID-19 {e.g., fever, cough, shortness of breath} {see Interim [place] Guidance for Risk Assessment and Public Health Management of Persons with Potential Coronavirus Disease 2019 {COVID-19} Exposure in Travel-associated or Community Settings.}Close contacts should also follow these recommendations: Make sure that you understand and can help the patient follow their healthcare provider's instructions for medication{s} and care. You should help the patient with basic needs in the home and provide support for getting groceries, prescriptions, and other personal needs. Monitor the patient's symptoms. If the patient is getting sicker, call his or her healthcare provider and tell them that the patient has laboratory-confirmed COVID-19. This will help the healthcare provider's office take steps to keep other people in the office or waiting room from getting infected. Ask the healthcare provider to call the local or state health department for additional guidance. If the patient has a medical emergency and you need to call 911, notify the dispatch personnel that the patient has, or is being evaluated for COVID-19. Household members should stay in another room or be from the patient as much as possible. Household members should use a separate bedroom and bathroom, if available. 13 General Instructions [facility] Emergency Department [address] [place] [address] Phone #: ext- [phone] 10/03/2020 17:12 Patient: NIRMAL RAMAN Sex: M : 1985 Age: 34y Prohibit visitors who do not have an essential need to be in the home. Household members should care for any pets in the home. Do not handle pets or other animals while sick. For more information, see COVID-19 and Animals. Make sure that shared spaces in the home have good air flow, such as by an air conditioner or an opened window, weather permitting. Perform hand hygiene frequently. Wash your hands often with soap and water for at least 20 seconds or use an alcohol-based hand azure architect that contains 60 to 95% alcohol, covering all surfaces of your hands and rubbing them together until they feel dry. Soap and water should be used preferentially if hands are visibly dirty. Avoid touching your eyes, nose, and mouth with unwashed hands. The patient should wear a facemask when around other people, except when unable {for example, because it causes trouble breathing}. You, as the caregiver should always wear a mask, regardless if the patient has one on or not whenever you are in the same room as the patient. Wear a disposable facemask and gloves when you touch or have contact with the patient's blood, stool, or body fluids, such as saliva, sputum, nasal mucus, vomit, urine. Throw out disposable facemasks and gloves after using them. Do not reuse. When removing personal protective equipment, first remove and dispose of gloves. Then, immediately clean your hands with soap and water or alcohol-based hand azure architect. Next, remove and dispose of facemask, and immediately clean your hands again with soap and water or alcohol-based hand azure architect. Avoid sharing household items with the patient. You should not share dishes, dr inking glasses, cups, eating utensils, towels, bedding, or other items. After the patient uses these items, you should wash them thoroughly {see below "Wash laundry thoroughly"}. Flu Like Symptoms / Coronavirus Exposure - 30a Page 2 of 2 Clean all "high-touch" surfaces, such as counters, tabletops, doorknobs, bathroom fixtures, toilets, phones, keyboards, tablets, and bedside tables, every day. Also, clean any surfaces that may have blood, stool, or body fluids on them. Use a household cleaning spray or wipe, according to the label instructions. Labels contain instructions for safe and effective use of the cleaning product including precautions you should take when applying the product, such as wearing gloves and making sure you have good ventilation during use of the product. Wash laundry thoroughly. Immediately remove and wash clothes or bedding that have blood, stool, or body fluids on them. Wear disposable gloves while handling soiled items and keep soiled items away from your body. Clean your hands {with soap and water or an alcohol-based hand azure architect} immediately after removing your gloves. https://www.[employer]/index.php Read and follow directions on labels of laundry or clothing items and detergent. In general, using a normal laundry detergent according to washing machine instructions and dry thoroughly using the warmest temperatures recommended on the clothing label. Place all used disposable gloves, facemasks, and other contaminated items in a lined container before disposing of them with other household waste. Clean your hands {with soap and water or an alcohol-based hand azure architect} immediately after hand ling these items. Soap and water should be used preferentially if hands are visibly dirty. Discuss any additional questions with your state or local health department or healthcare provider. Check available hours when contacting your local health department.Contacts [employer] information 14 General Instructions [facility] Emergency Department [address] [place] [address] Phone #: ext- [phone] 10/03/2020 17:12 Patient: NIRMAL RAMAN Sex: M : 1985 Age: 34y https://www.cdc.gov/coronavirus/2019-ncov/about/index.htmlContent source: National Center for Immunization and Respiratory Diseases (NCIRD), Division of Viral DiseasesFootnotes 1Home healthcare personnel should refer to I nterim Infection Prevention and Control Recommendations for Patients with Known or P atients Under Investigationfor Coronavirus Disease 2019 (COVID-19) in a Healthcare Setting. 2Close contact is defined as-1. being within approximately 6 feet (2 meters) of a COVID-19 case for a prolonged period of time; close contact can occur while caring for, living with, visiting, or sharing a health care waiting area or room with a COVID-19 case - or -2. having direct contact with infectious secretions of a COVID-19 case (e.g., being coughed on You have been given the following additional information: Coronavirus Disease 2019 (COVID-19) Influenza (Adult) COVID-19 Rest at home for one weeks (You are on a self quarantine x 1 week. This may be extended or decreased by JC. It is all dependent on when your test results are in.).(Electronically signed by Justin Green P.A.-C 10/04/2020 11:27) 15 General Instructions [facility] Department [address] [place] [address] Phone #: ext- [phone] 10/03/2020 17:12 Patient: NIRMAL RAMAN Sex: M : 1985 Age: 34y Name Value Range Interpretation Code Description Data Sherry rce(s) Supporting Document(s) ID Date Data Source [id number] 10/03/2020 05:16:00 PM EST [facility] 1 Clinical Report - Nurses [facility] Emergency Department [address] [place] [address] Phone #: ext- [phone] 10/03/2020 17:12 Patient: NIRMAL RAMAN Sex: M : 1985 Age: 34yTRIAGEArrived by private vehicle. Historian: patient. Accompanied by family. ( has flu shot yesterday , todaystarted with headache, body chills, cough runny nose , sinus pressure, fever).Acuity: LEVEL 4.Chief Complaint: HEADACHE.Alert. No acute distress.This started today. ( flu like symptoms, loss of appetite). He has had fever, nausea, weakness and sinuspain. 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 --17:19 10/03/20 Veronica Cuello R.N.17:13 10/03/20. BP: 142/80. MAP: 100. HR: 101. RR: 18. O2 saturation: 94%. Temp: 99.5 F. Pain levelnow: 03/30. --17:19 10/03/20 Veronica Cuello R.N.Weight: 97.5 kg stated. Height/Length: 69 inches Per Patient. BMI: 31.8. --17:12 10/03/20 Veronica Cuello R.N.MedicationsAdvair Diskus Inhalation. Albuterol Sulfate Inhalation. Claritin Oral. Flovent HFA Inhalation. ProAir HFA Inhalation. Spiriva HandiHaler Inhalation. ZyrTEC Allergy Oral. --17:16 10/03/20 Veronica Cuello R.N. Nasal [place]. --17:16 10/03/20 Veronica Cuello R.N.AllergiesIodinated Diagnostic Agents. --17:15 10/03/20 Veronica Cuello R.N.HistoryPAST MEDICAL HX: Immunizations: up-to-date.SOCIAL HX: Never smoker. No alcohol use or drug use. No recent travel. No known contact with a sickindividual. He was offered HIV testing but declined and hepatitis C testing but declined. He has nottraveled outside the [place]Infectious disease exposure: No infectious disease exposure. Patient is not a known carrier of tuberculosis, 2 Clinical Report - Nurses [facility] Emergency Department [address] [place] [address] Phone #: ext- [phone] 10/03/2020 17:12 Patient: NIRMAL RAMAN Sex: M : 1985 Age: 34y hepatitis, HIV, MRSA or VRE. Patient is not a known carrier of CRE. SELF HARM ASSESSMENT: Self harm assessment was performed. The patient answered "no" to the question(s) "Have you recently felt down, depressed, or hopeless?", "Do you have thoughts of harming or killing yourself?", "Do you have a plan for harming or killing yourself?", "Have you recently had thoughts about harming or killing others?", "Do you have any dangerous items in your possession?", & quot;Have you noticed less interest or pleasure in doing things?", "Are you here because you tried to hurt yourself?" and "Have you ever tried to hurt yourself before today?". ABUSE ASSESSMENT: Abuse assessment. Abuse denied. No suspicion of abuse. No report of abuse. NUTRITIONAL RISK ASSESSMENT: The nutritional risk assessment revealed no deficiencies. FUNCTIONAL ASSESSMENT: Functional assessment: no impairments noted. LEARNING NEEDS ASSESSMENT: The learning needs assessment revealed no barriers. FALL RISK ASSESSMENT: Fall risk assessment completed. No risk factors identified. SKIN INTEGRITY ASSESSMENT: Skin integrity risk assessment completed. No skin integrity risk identified. --17:19 10/03/20 Veronica Cuello R.N. Interventions Identification band on patient. To treatment ro om. --17:19 10/03/20 Veronica Cuello R.N.PHYSICAL ASSESSMENTGENERAL / NEURO / PSYCH: Alert. Oriented X 4. Speech within normal limits.HEENT: No facial asymmetry noted. Sinus tenderness present. Runny nose.RESPIRATORY: Respirations not labored. Decreased breath sounds bilaterally.CVS: Capillary refill less than 2 seconds.GI / : The patient has had nausea. Abdomen soft and nontender.SKIN: Skin is warm and dry. ( chills, flu-like symptoms). --18:16 10/03/20 Veronica Cuello R.N.NURSING PROGRESS NOTESPatient ID band checked for patient name and birthdate: patient confirmed. Flu swab obtained by RN vianasal swab. Labeled in the presence of the patient and sent to lab. Patient ID band checked for patientname and birthdate: patient confirmed. COVID-19 specimen obtained by RN via nasopharyngeal swab.Labeled in the presence of the patient and sent to lab. Patient ID band checked for patient name andbirthdate: patient confirmed. Throat swab obtained by nurse for rapid strep; labeled in the presence of thepatient a nd sent to lab. --17:33 10/03/20 Veronica Cuello R.N. Reassurance given. Two patient identifiers checked. Call light placed in reach. Side rails up x 2. Bed placed in lowest position. Brakes of bed on. Patient ready for evaluation. --17:33 10/03/20 Veronica Cuello R.N. 3 Clinical Report - Nurses [facility] Emergency Department [address] [place] [address] Phone #: ext- [phone] 10/03/2020 17:12 Patient: NIRMAL RAMAN Sex: M : 1985 Age: 34y 18:14 10/03/2020 Tylenol (APAP) PO Tablets 1000 mg given. Allergies verified and confirmed 5 rights. Information reviewed with patient including reason for taking this medication, signs of allergic reaction and precautions. Verbalizes understanding. --18:14 10/03/20 Veronica Cuello R.N. 18:15 10/03/2020 Ibuprofen PO Tablets 600 mg given. Allergies verified and confirmed 5 rights. Information reviewed with patient including reason for taking this medication, signs of allergic reaction and precautions. Verbalizes understanding. --18:15 10/03/20 Veronica Cuello R.N. Patient walked to radiology with tech. --18:17 10/03/20 Veronica Cuello R.N. Patient walked back from radiology with mask and tech. --18:25 10/03/20 Tami Pro Reassurance given. Rounding: Pain: denies pain. Position: states comfortable. Personal care / toileting: denies toileting needs. Proximity of possessions / care items: call light within easy reach. --19:05 10/03/20 Tami Pro Care transferred and report given. --19:10 10/03/20 Tami Pro.DISPOSITION / DISCHARGE Departure time: 20:01 10/03/2020. Condition at departure: improved and stable. Reviewed medication(s). Prescription(s) sent electronically to pharmacy. Activity restrictions reviewed (quarantine). Patient verbalized understanding. Written instructions provided in [place]. The patient was discharged by the physician laboratory assistant. He was discharged home. He left ambulatory and via private vehicle. --20:03 10/03/20 Aziza Gamboa R.N. 20:00 10/03/20. BP: 139/89. MAP: 105. HR: 90. RR: 16. O2 saturation: 98%. Temp: 98.6 F. Pain level now: 11/28. --20:03 10/03/20 Aziza Gamboa R.N.Locked/Released at 10/03/2020 23:35 by Aziza Gamboa R.N. Name Value Range Interpretation Code Description Data Sherry rce(s) Supporting Document(s) ID Date Data Source [id number] 0001 10/03/2020 05:16:00 PM [facility] 1 Clinical Report - Physicians/Mid Levels [facility] Emergency Department [address] [place] [address] Phone #: ext- [phone] 10/03/2020 17:12 Patient: NIRMAL RAMAN Sex: M : 1985 Age: 34y Time Seen: 17:26 10/03/2020; initial patient contact, initial documentation. Arrived- By private vehicle. Historian- patient. Disposition decision: 19:44 10/03/2020.HISTORY OF PRESENT ILLNESS Chief Complaint: FEVER, COUGH, SORE THROAT and MUSCLE ACHES and possible FLU EXPOSURE and COVID-19 EXPOSURE. This started yesterday and is still present. The patient has had loss of appetite, nasal congestion, a sore throat, fever and chills. He has had muscle aches and a headache. No cough, difficulty breathing, chest discomfort or chest pain or nausea. No vomiting, diarrhea or sputum production. The patient has had contact with a sick individual. (Pt sts that he is exeperincing fever/chills and general malaise. Sts that he did recieve his flu shot yesterday at work ([employer]). No CP, SOB, or dypnea,). Similar symptoms previously. None. Recent medical care: Not recently seen/assessed.REVIEW OF SYSTEMSNo fatigue, weight loss, photophobia, sinus pain or toothache. No weakness, dizziness, palpitations, calfpain or abdominal pain. No bloody stools, urinary incontinence, joint pain, enlarged lymph nodes or tickbite. No back pain. All other systems reviewed and are negative.PAST HISTORYSee nurses notes. Problems: Allergies. Allergic Rhinitis. Seasonal allergic rhinitis. Lung Disease. Other Disease. Additional Surgeries: Dental Surgery. Immunizations: Immunization status is up-to-date. Medications: Nasal [place]. Advair Diskus Inhalation. Albuterol Sulfate Inhalation. 2 Clinical Report - Physicians/Mid Levels [facility] Emergency Department [address] [place] [address] Phone #: ext- [phone] 10/03/2020 17:12 Patient: NIRMAL RAMAN Sex: M : 1985 Age: 34y Claritin Oral. Flovent HFA Inhalation. ProAir HFA Inhalation. Spiriva HandiHaler Inhalation. ZyrTEC Allergy Oral. Allergies: Iodinated Diagnostic Agents.SOCIAL HISTORYNever smoker. No alcohol use or drug use.ADDITIONAL NOTESThe nursing notes have been reviewed.PHYSICAL EXAMVital Signs: 10/03/2020 17:13 BP: 142/80. MAP: 100. HR: 101. RR: 18. O2 saturation: 94%. Temp: 99.5F. Pain level now: 03/30. Have been reviewed. Oxygen saturation low.Appearance: Alert. No acute distress.Eyes: Eyelids appear normal to inspection. Conjunctivae and sclerae appear normal to inspection.Corneas appear normal to inspection. Pupils equal, round and reactive to light. EOMs intact. Periorbitalareas appear normal to inspection. Anterior chambers clear.ENT: Airway intact. Nose normal. Nares normal. Pharyngeal erythema. Right-sided tonsillar erythemaand hypertrophy . Left-sided tonsillar erythema and hypertrophy (Pt sts chronic; contributes to YAUSH). Moistmucous membranes. Uvula midline. Voice normal.Ear (right): There is dullness of the tympanic membrane and abnormal insufflation. No tenderness of theauricle, pain with movement of the auricle, lymphadenopathy, erythema of the external canal or swelling ofthe external canal. No material in the external canal. Right ear normal. Normal mastoid. No hearingdeficit.Ear (left): There is dullness of the tympanic membrane and abnormal insufflation. No tenderness of theauricle, pain with movement of the auricle, lymphadenopathy, erythema of the external canal or swelling ofthe external canal. No material in the external canal. Left ear normal. Normal mastoid. No hearingdeficit.Neck: Normal inspection. Neck supple.CVS: Normal heart rate and rhythm. No JVD present. Pulses normal. Capillary refill normal. Strongperipheral pulses. Heart sounds normal. Pulses: right radial 2+; left radial 2+.Respiratory: Chest normal on in spection. No respiratory distress. Unlabored respirations. Lungs clear.Good chest movement. Breath sounds normal and equal.Skin: Skin warm and dry.Neuro: Awake. Alert. Mood/affect normal. Speech normal. No motor deficit. No sensory deficit.Psych: Cognition normal. Thought process and content normal. Insight and judgement normal.LABS, X-RAYS, AND EKGChest X-ray: (Basilio velasco Neal - 10/03/2020 6:31:51 PMnad). The X-rays were interpreted by the radiologist. 3 Clinical Report - Physicians/Mid Levels [facility] Emergency Department [address] [place] [address] Phone #: ext- [phone] 10/03/2020 17:12 Patient: NIRMAL RAMAN Sex: M : 1985 Age: 34y Laboratory Tests: Chest 2 View: (LAY: 10/03/2020 18:03) ( [facility] [place] 10/03/2020 18:29) In Progress CHEST 2 VIEWS Reason(s): congestion, ? COVID TRANSPORTATION: WC IV? O2? Oxygen?(No) Room: ED Influenza Nasal A B: (LAY: 10/03/2020 17:35) ( [facility] [place]03[place] 18:56) Final results Test Result Flag Units (Reference) INFLUENZA A NEGATIVE (NORMAL: NEGAT INFLUENZA B POSITIVE A (NORMAL: NEGAT INFLUENZA A REENTER NEGATIVE (NORMAL: NEGAT INFLUENZA B REENTER POSITIVE A (NORMAL: NEGAT PROCEDURAL CONTROL VALID KIT LOT # _[id number] 10/03/20.1854.DW . KIT EXP DATE _44-28-02 10/03/20.DW .The Influenza A utilizing an isothermal nucleic acid amplification technology for thequalitative detection of influenza A and B viral RNA.Negative results do not preclude influenza virus infection and should not beused as the sole basis for diagnosis, treatment or other patient managementdecisions. Rapid Strep Screen: (LAY: 10/03/2020 17:35) ( [facility] 10/03/2020 18:33) Final results Test Result Flag Units (Reference) RAPID STREP NEGATIVE (NORMAL: NEGAT RAPID STREP REENTER NEGATIVE (NORMAL: NEGAT { PROCEDURAL CONTROL VALID ){ KIT LOT # [id number] ){ KIT EXP DATE 12-31-21 )The Strep A 2 assay utilizes isothermal nucleic acid amplification technology fothe qualitative detection of Group A Strep bacterial nucleic acid in throat swabspecimens.All negative test results no longer need to be confirmed with a culture. Follow-up testing requiring a culture is necessary if clinical symptoms persist, or inthe event of an acute rheumatic fever outbreak. A culture will need to beordered by the Qualified Medical Provider.Negative results do not preclude infection with Group A Strep and should not beused as the sole basis for treatment..PROGRESS AND PROCEDURESCourse of Care: VSS, NAD, AOx3, interacting well and appropriately, no use of accessory muscle, able tospeak full sentences, stable, non-toxic looking. Enter room and pt lying peacefully in bed in NAD. Patient stable. Denies any new issues, concerns, or complaints. PE demos NV tinact b/l UE. Noted erythema of the post orophyrnyx. Noted enlarged tonsils; pt sts chonic and contributes to hsi AYUSH. Will order labs and imaiging. Pending results. Reviewed results. Noteding findings. Enter room and patient lying peacefully in bed in NAD. Patient stable. Denies any new issues, concerns, or complaints. Discussed results with pt. Discussed tx plan with pt. Discussed and counseled on stable condition. 4 Clinical Report - Physicians/Mid Levels [facility] Emergency Department [address] [place] [address] Phone #: ext- [phone] 10/03/2020 17:12 Patient: NIRMAL RAMAN Sex: M : 1985 Age: 34y Discussed importance of a f/u with PCP. Discussed return to ER criteria. Answered their questions. Indicates and verbalizes that they understand, agree, and will comply with above. Denies any new questions or concerns. Patient has capacity to understand. Discussed options and offered but pt declined tamiflu. Will tx conservatively. Discharge decision based on the following: patient's condition is stable; patient's exam is stable; social support is adequate; transportation is available; follow-up is available. Discussed of OTC Motrin and Tylenol to control inflammation and pain management. Informed to follow directions on bottle that are appropriate for age and/or weight. Disposition: Discharged home in good and improved condition. Condition: good and stable.CLINICAL IMPRESSION Coronavirus COVID-19 presumed (confirmatory testing pending) with upper respiratory infection. Influenza type B with upper respiratory infection.INSTRUCTIONS Take Tylenol (Acetaminophen) or Motrin (Ibuprofen) as needed for fever control. Take medication according to label instructions. Rest at home for one weeks (You are on a self quarantine x 1 week. This may be extended or decreased by [facility]. It is all dependent on when your test results are in.). Drink plenty of fluids. No dietary restrictions. ([facility]: [phone]. Please contact them in approx 3-4 days if you have not heard from them. You are on a self quarantine x 1 week. This may be extended or decreased by [facility]. It is all dependent on when your test results are in. I recommend to purchase a small finger pulse oximeter to monitor your O2 saturation at home. If becomes too low (<90%), please contact your PCP or return to the ER.). Warnings: Further evaluation is necessary. GENERAL WARNINGS: Return or contact your physician immediately if your condition worsens or changes unexpectedly, if not improving as expected, or if other problems arise. Your Current Medications: Your current home medications have been reviewed. CONTINUE TAKING THE FOLLOWING MEDICATIONS: Advair Diskus Inhalation. Albuterol Sulfate Inhalation. 5 Clinical Report - Physicians/Mid Levels [facility] Emergency Department [address] [place] [address] Phone #: ext- [phone] 10/03/2020 17:12 Patient: NIRMAL RAMAN Sex: M : 1985 Age: 34y Claritin Oral. Flovent HFA Inhalation. Nasal [place]*. ProAir HFA Inhalation. Spiriva HandiHaler Inhalation. ZyrTEC Allergy Oral. Prescription Medications: acetaminophen 500 mg capsule Take 2 capsule three times a day for 7 days -- Dispense 42 capsule. Refills: 0. Substitution permitted. Pharmacy - [address] ; [place] [address]. . IBU 800 mg tablet Take 1 tablet three times a day as needed for 7 days -- Dispense 21 tablet. Refills: 0. Substitution permitted. Pharmacy - [address] ; [place] [address]. . Zofran 4 mg tablet Take 1 tablet three times a day for 3 days -- Dispense 9 tablet. Refills: 0. Substitution permitted. Pharmacy - [address] ; [place] [address]. . Follow-up: Return to the emergency department as needed. Follow up with your healthcare provider in about two days if not better. Call for an appointment. Understanding of the discharge instructions verbalized by patient.(Electronically signed by Justin Green P.A.-C 10/04/2020 11:27) Name Value Range Interpretation Code Description Data Sherry rce(s) Supporting Document(s) ID Date Data Source [id number] 10/03/2020 05:16:00 PM [facility] NIRMAL Martinez VisitID: [id number] Date: 18:27Pt COVID test positive, pt was called and made aware at 1709,Instructed on general hygiene, isolationand that public health will be in contact; Instructed when to come back to ER or be seen, and ptverbalized understanding. Attempted to call into [facility] however no answer, did fax to them.(Electronically signed by Taylor Ace R.N. - 10/06/2020 18:27) Name Value Range Interpretation Code Description Data Sherry rce(s) Supporting Document(s) ID Date Data Source [id number] 10/05/2020 09:50:00 AM EST [facility] [address] [place] [address] PHONE: [phone] FAX: [phone] Name .................. : DANISHA Gandhi Acct Number.................. : [id number] ROOM. ................. : VT-07 MR Number ................... : [id number] Stay type ............. : E/R Discharge Date......... ... : 10/03/20 Admit Date ......... : 10/03/20 Admit Phys .................... : VERITO NAPOLES Date of ....... : 1985 Family Phys ................... : UNKNOWN Phone . ................. : [phone] Age ................................ : 34 Film# .................. .:[id number] Sex ................................. : M Unsigned transcriptions are preliminary reports and do not represent a medical or legal document CHEST 2 VIEWS [id number] COMPLETE:10/03/20 18:29 CARL 2167 Reason(s): congestion, ? COVID CHEST X-RAY: 2-VIEWS INDICATION: Congestion and COVID. FINDINGS: The cardiac and mediastinal silhouettes appear normal and the lungs are clear. The bones and soft tissues are normal. The upper abdomen is unremarkable. IMPRESSION: No acute disease identifiable. Electronically Reviewed and Signed By Renzo Richmond M.D. , 10/05/20 09:50, [place] Transcribe Initials: DZ , Transcribe Date: 10/04/20 00:36, Dictation Date: Copy for: [facility] via fax Copy for: EMERGENCY DEPT via modem Copy for: 710 MED REC DISCHARGED Page 1 of 1 Name Value Range Interpretation Code Description Data Sherry rce(s) Supporting Document(s) ID Date Data Source [id number] 10/03/2020 05:35:[address] [facility] Name Value Range Interpretation Code Description Data Sherry rce(s) Supporting Document(s) SARS coronavirus [address] [facility] This lab was ordered by [facility] and reported by [facility]. ID Date Data Source [id number] 10/06/2020 04:14:00 PM EST [facility] Name Value Range Interpretation Code Description Data [facility] rce(s) Supporting Document(s) SARS-CoV-2, NISREEN Detected Not Detected A [facility] This nucleic acid amplification test was developed and its performancecharacteristics determined by [facility]. Nucleic acidamplification tests include PCR and TMA. This test has not been FDAcleared or approved. This test has been authorized by FDA under anEmergency Use Authorization (EUA). This test is only authorized forthe duration of time the declaration that circumstances existjustifying the authorization of the emergency use of in vitrodiagnostic tests for detection of SARS-CoV-2 virus and/or diagnosisof COVID-19 infection under section 564(b)(1) of the Act, 21 U.S.C.360bbb-3(b) (1), unless the authorization is terminated or revokedsooner.When diagnostic testing is negative, the possibility of a falsenegative result should be considered in the context of a patient'srecent exposures and the presence of clinical signs and symptomsconsistent with COVID- 19. An individual without symptoms of COVID-19and who is not shedding SARS-CoV-2 virus would expect to have anegative (not detected) result in this assay. ORDER COVID 19 2 DAY YES [facility] ID Date Data Source [id number] 10/03/2020 06:55:00 PM EST [facility] Name Value Range Interpretation Code Description Data Sherry rce(s) Supporting Document(s) Influenza virus A Ag [Presence] in Nasopharynx by [facility] y NEGATIVE NORMAL: NEGATIVE [facility] Influenza virus B Ag [Presence] in Nasopharynx by [facility] y POSITIVE NORMAL: NEGATIVE A [facility] NEGATIVEPOSITIVE PROCEDURAL CO NTROL VALID KIT LOT # _[id number] 10/03/20.DW . KIT EXP DATE _73-67-39 10/03/20.DW .The Influenza A & B assay is a rapid molecular in vitro diagnostic testutilizing an isothermal nucleic acid amplification technology for thequalitative detection of influenza A and B viral RNA.Negative results do not preclude influenza virus infection and should not beused as the sole basis for diagnosis, treatment or other patient managementdecisions. ID Date Data Source [id number] 10/03/2020 06:32:00 PM [facility] Name Value Range Interpretation Code Description Data Sherry rce(s) Supporting Document(s) RAPID STREP NEGATIVE NORMAL: NEGATIVE [facility] RAPID STREP REENTER NEGATIVE NORMAL: NEGATIVE [facility] { PROCEDURAL CONTROL VALID ){ KIT LOT # [id number] ){ KIT EXP DATE 12-31-21 )The Strep A 2 assay utilizes isothermal nucleic acid amplification technology fothe qualitative detection of Group A Strep bacterial nucleic acid in throat swabspecimens.All negative test results no longer need to be confirmed with a culture. Follow-up testing requiring a culture is necessary if clinical symptoms persist, or inthe event of an acute rheumatic fever outbreak. A culture will need to beordered by the Qualified Medical Provider.Negative results do not preclude infection with Group A Strep and should not beused as the sole basis for treatment. ID Date Data Source [id number] 07/15/2020 06:31:00 PM EDT [facility] 1 OrderSheet [facility] Emergency Department [address] [place] [address] Phone #: ext- [phone] 07/15/2020 18:21 Patient: NIRMAL RAMAN Sex: M : 1985 Age: 34yWEIGHT:97.5 kg (S) HEIGHT:68 inches (S) BMI:32.7ALLERGIES: Iodinated Diagnostic Agents, SeafoodCHIEF COMPLAINT: 1dDIAGNOSIS: Medication refillLAB ORDERSOrder Description Priority Entered Acknowledged InitialedDIAGNOSTIC STUDY ORDERSOrder Description Priority Entered Acknowledged InitialedMEDICATION/IV/DRIP/FLUID ORDERSOrder Description Priority Entered Acknowledged InitialedAlbuterol MDI 2 18:31 07/15/2020 18:32 shelia Ace (NOW x1) Taylor Ace R.N. R.NAurora; Verbal order per; Erwin Tejeda PAGENERAL ORDERSOrder Description Priority Entered Acknowledged Initialed[Electronically signed by Taylor Ace R.N. (18:37 07/15/2020)][Electronically signed by Erwin Tejeda (21:10 07/15/2020)][Electronically locked by Taylor Ace R.N. (18:37 07/15/2020)] Name Value Range Interpretation Code Description Data Sherry rce(s) Supporting Document(s) ID Date Data Source [id number] 07/15/2020 06:31:00 PM EDT [facility] 1 Medication Reconciliation Report [facility] Emergency Department [address] [place] [address] Phone #: [phone] 07/15/2020 18:21 Patient: NIRMAL RAMAN Sex: M : 1985 Age: 34yWeight: 97.5 kgHeight/Length: 68 in.BMI: 32.7ALLERGIES: Iodinated Diagnostic Agents, SeafoodThe patient's Home Medications are listed below:CONTINUE TAKING THE FOLLOWING MEDICATIONS: Advair Diskus Inhalation Claritin Oral 10 mg, daily Flovent Diskus Inhalation ProAir HFA Inhalation 2 puffs, prn Spiriva HandiHaler Inhalation Zyrtec AllergyThe source(s) of the original Home Medication information:patientThe following Medications were given to the patient in the Emergency Department:Albuterol [MDI] Inhalation 2 puff, administered: 07/15/2020 6:32:00 PMThe following Medications were prescribed to the patient:albuterol sulfate HFA 90 mcg/actuation aerosol inhaler Inhale 2 puff four times a day -- Dispense 8.5gram. Refills: 3. Substitution permitted.Pharmacy - [address] ; [place] [address]. . -- NENO Baum Name Value Range Interpretation Code Description Data Sherry rce(s) Supporting Document(s) ID Date Data Source [id number] 07/15/2020 06:31:00 PM EDT [facility] 1 Medication Administration Record [facility] Emergency Department [address] [place] [address] Phone #: ext- [phone] 07/15/2020 18:21 Patient: NIRMAL RAMAN Sex: M : 1985 Age: 34yWeight: 97.5 kgHeight/Length: 68 inBMI: 32.7ALLERGIES: Seafood, Iodinated Diagnostic Agents Date/Time Medication Administered Medication OrderedGiven ALBUTEROL [MDI] Albuterol MDI 2 puff (NOW x1)18:32 07/15/2020 Dose: 2 puff MDI/Aerosol InhalationTaylor Ace R.N. Name Value Range Interpretation Code Description Data Sherry rce(s) Supporting Document(s) ID Date Data Source [id number] 07/15/2020 06:31:00 PM EDT [facility] 1 General Instructions [facility] Emergency Department [address] [place] [address] Phone #: ext- [phone] 07/15/2020 18:21 Patient: NIRMAL RAMAN Sex: M : 1985 Age: 34yMedication refill (Albuterol MDI).INSTRUCTIONSYour Current Medications: Your current home medications have been reviewed.CONTINUE TAKING THE FOLLOWING MEDICATIONS:Advair Diskus Inhalation.Claritin Oral : 10 mg daily.Flovent Diskus Inhalation.ProAir HFA Inhalation : 2 puffs, prn.Spiriva HandiHaler Inhalation.Zyrtec Allergy*.Prescription Medications:albuterol sulfate HFA 90 mcg/actuation aerosol inhaler Inhale 2 puff four times a day -- Dispense 8.5gram. Refills: 3. Substitution permitted.Pharmacy - [facility] [address] [facility] ; [place] [address]. .Follow-up:Follow up with your doctor. Call for the next available appointment. Reason for referral: evaluation andtreatment. Summary of care provided to patient.Understanding of the discharge instructions verbalized by patient.(Electronically signed by NENO Baum 07/15/2020 21:10) Name Value Range Interpretation Code Description Data Sherry rce(s) Supporting Document(s) ID Date Data Source [id number] 07/15/2020 06:31:00 PM EDT [facility] 1 Clinical Report - Nurses [facility] Emergency Department [address] [place] [address] Phone #: ext- [phone] 07/15/2020 18:21 Patient: NIRMAL RAMAN Sex: M : 1985 Age: 34yTRIAGEArrived by private vehicle. Historian: patient. Unaccompanied.Triage time: late entry - 18:07/15/2020. Acuity: LEVEL 5.Chief Complaint: PRESCRIPTION REFILL REQUEST Proair, BID-6x per day.Alert. No acute distress.This started today. ( Pt states he has been using his albuterol more often due to "climate change" and ranout of his inhaler today).Treatment CONSERVATION COORDINATOR:(Proair; flovent, advair, spiriva).SEPSIS SCREEN: SIRS Screen negative. Sepsis Screen negative. No suspected or confirmed signs ofinfection present. (18:27 07/15/2020). --18:27 07/15/20 Taylor Ace R.N.18:24 07/15/20. BP: 151/90. MAP: 110. HR: 83. RR: 18. O2 saturation: 97% on room air. Temp: 98.9 F(temporal). Pain level now 0/10. --18:27 07/15/20 Taylor Ace R.N.Weight: 97.5 kg stated. Height/Length: 68 inches Per Patient. BMI: 32.7. --18:20 07/15/20 Taylor Ace R.N.MedicationsProAir HFA Inhalation 2 puffs, as needed. --18:25 07/15/20 Taylor Ace R.N. Flovent Diskus Inhalation. --18:25 07/15/20 Taylor Ace R.N. Spiriva HandiHaler Inhalation. --18:25 07/15/20 Taylor Ace R.N. Advair Diskus Inhalation. --18:25 07/15/20 Taylor Ace R.N. Claritin Oral 10 mg, daily. --18:25 07/15/20 Taylor Ace R.N. Zyrtec Allergy. --18:07/15/20 Taylor Ace R.N.AllergiesIodinated Diagnostic Agents. --18:07/15/20 Taylor Ace R.N.Seafood. --18:07/15/20 Taylor Ace R.N.PROBLEMS:Obstructive Sleep Apnea.Asthma. --18:07/15/20 Alyssa Baum following entry was modified by NENO Baum, 07/15/20Obstructive Sleep Apnea. --18:07/15/20 Taylor Ace R.N.The following entry was modified by NENO Chandler, 1807/15/20 2 Clinical Report - Nurses [facility] Emergency Department [address] [place] [address] Phone #: ext- [phone] 07/15/2020 18:21 Patient: NIRMAL RAMAN Sex: M : 1985 Age: 34y Asthma. --18:26 07/15/20 Taylor Ace R.N.. Medication/allergy information source: the patient. --18:07/15/20 Taylor Ace R.N. ADDITIONAL SURGERIES: no known surgeries. History PAST MEDICAL HX: Immunizations: up-to-date. SOCIAL HX: Never smoker. Occasional alcohol use. No drug use. The patient was offered HIV testing but declined. Patient education was provided. The patient was offered hepatitis C testing but declined. Patient education was provided. ( COVID screen negative). The patient has not traveled outside the [place] Infectious disease exposure: No infectious disease exposure. Patient is not a known carrier of tuberculosis, hepatitis, HIV, MRSA or VRE. Patient is not a known carrier of CRE. SELF HARM ASSESSMENT: Self harm assessment was performed. The patient answered "no" to the question(s) "Do you have thoughts of harming or killing yourself?" and "Do you have a plan for harming or killing yourself?". ABUSE ASSESSMENT: Abuse assessment. The patient had positive responses to the question(s) "Do you feel safe in your home?". Abuse denied. No suspicion of abuse. No report of abuse. NUTRITIONAL RISK ASSESSMENT: The nutritional risk assessment revealed no deficiencies. FUNCTIONAL ASSESSMENT: Functional assessment: no impairments noted. LEARNING NEEDS ASSESSMENT: The learning needs assessment revealed no barriers. FALL RISK ASSESSMENT: Fall risk assessment completed. No risk factors identified. SKIN INTEGRITY ASSESSMENT: Skin integrity risk assessment completed. No skin integrity risk identified. --18:07/15/20 Taylor Ace R.N. Interventions Identification band on patient. --18:27 07/15/20 Taylor Ace R.N.PHYSICAL ASSESSMENTAmbulatory to room.GENERAL / NEURO / PSYCH: Alert. Oriented X 4. Appears in no acute distress. ( Pt has nocomplaints at this time).HEENT: No facial asymmetry noted. Mucous membranes are pink.RESPIRATORY: Respirations not labored. Chest nontender. Breath sounds within normal limits.SKIN: Skin intact. Skin is warm and dry. --18:30 07/15/20 Taylor Farias R.N. 3 Clinical Report - Nurses [facility] Emergency Department [address] [place] [address] Phone #: ext- [phone] 07/15/2020 18:21 Patient: NIRMAL RAMAN Sex: M : 1985 Age: 34yNURSING PROGRESS NOTESReassurance given. Three patient identifiers checked. Call light placed in reach. Side rails up x 2. Bedplaced in lowest position. Brakes of bed on. Patient ready for evaluation- PA notified. --18:30 07/15/20Taylor Ace R.N. 18:32 07/15/2020 Albuterol Inhalation MDI/Aerosol 2 puff given. Given by the nurse. Allergies verified and confirmed 5 rights. Information reviewed with patient including reason for taking this medication, signs of allergic reaction and precautions. Verbalizes understanding. --18:32 07/15/20 Taylor Ace R.N.DISPOSITION / DISCHARGE Departure time: 18:37 07/15/2020. Condition at departure: stable. No learning barriers present. Discharge instructions provided and reviewed with the patient. Reviewed warnings (please see paper copy). Reviewed medication(s) side effects, precautions, dosing and course information. Prescription(s) sent electronically to pharmacy (albuterol). Patient verbalized understanding. Written instructions provided in [place]. The patient was discharged by the physician laboratory assistant. He was discharged home and unaccompanied at time of discharge. He left ambulatory and via private vehicle. Patient driving. --18:37 07/15/20 Taylor Ace R.N. 18:36 07/15/20. BP: deferred. HR: deferred. RR: deferred. O2 saturation: deferred. Temp: deferred. Pain level now deferred. --18:37 07/15/20 Taylor Ace R.N.Locked/Released at 07/15/2020 18:37 by Taylor Ace R.N. Name Value Range Interpretation Code Description Data Sherry rce(s) Supporting Document(s) ID Date Data Source [id number] 07/15/2020 06:31:00 PM EDT [facility] 1 Clinical Report - Physicians/Mid Levels [facility] Emergency Department [address] [place] [address] Phone #: ext- [phone] 07/15/2020 18:21 Patient: NIRMAL RAMAN Sex: M : 1985 Age: 34y Time Seen: 18:21 07/15/2020. Arrived- By private vehicle. Historian- patient.HISTORY OF PRESENT ILLNESS Chief Complaint: PRESCRIPTION REFILL REQUEST- out of medication 1 day Albuterol MDI. This started today Pt states he has been using his albuterol more often due to "climate change" and ran out of his inhaler today and is still present. It was abrupt in onset. At its maximum, severity described as mild. When seen in the E.D., severity described as mild. No loss of appetite, weight loss, visual disturbance, fatigue or muscle aches. No weakness. Denies sleep problem. No decreased urine output. No current or associated symptoms. Similar symptoms previously. Patient has had similar symptoms many times. Recent medical care: Not recently seen/assessed.REVIEW OF SYSTEMSNo fever, sore throat, sinus drainage, nasal congestion or cough. No difficulty breathing, chest pain,abdominal pain, nausea or vomiting. No diarrhea, black stools, bloody stools, chills or difficulty withurination. No skin rash, back pain, calf pain, headache or blackouts. No double vision. No difficulty withambulation.PAST HISTORYMedications:Zyrtec Allergy. Claritin Oral 10 mg, daily. Advair Diskus Inhalation. Spiriva HandiHaler Inhalation. Flovent Diskus Inhalation. ProAir HFA Inhalation 2 puffs, as needed.Allergies:Iodinated Diagnostic Agents.Seafood.SOCIAL HISTORYNever smoker. Occasional alcohol use. No drug use.PHYSICAL EXAMVital Signs: 07/15/2020 18:24 BP: 151/90. MAP: 110. HR: 83. RR: 18. O2 saturation: 97% on room air.Temp: 98.9 F. Have been reviewed as abnormal. Hypertensive.Appearance: Alert. No acute distress. 2 Clinical Report - Physicians/Mid Levels [facility] Emergency Department [address] [place] [address] Phone #: [phone] ext- [phone] 07/15/2020 18:21 Patient: NIRMAL RAMAN Sex: M : 1985 Age: 34y Eyes: Pupils equal, round and reactive to light. Eyes normal inspection. ENT: Ears normal. Nose normal. Pharynx normal. Neck: Normal inspection. CVS: Normal heart rate. Respiratory: No respiratory distress. Breath sounds normal. Abdomen: No visible injury. Back: Normal inspection. Skin: Skin warm and dry. Normal skin color. No rash. Normal skin turgor. Extremities: Extremities exhibit normal ROM. No lower extremity edema. Neuro: Oriented X 3.LABS, X-RAYS, AND EKGLaboratory Tests: Laboratory tests have been ordered, with results reviewed and considered in themedical decision making process.PROGRESS AND PROCEDURESCourse of Care: 18:32 Jul 15 2020. Evaluation after observation. (Discussed follow up with PCM and ptwill see his at [facility]). Patient counseled in person regarding the patient's stable condition, diagnosis and need for follow-up. Patient agrees with plan of care. 18:Jul 15 2020. Disposition: Discharged home in good and improved condition (18:Jul 15 2020).CLINICAL IMPRESSION Medication refill (Albuterol MDI).INSTRUCTIONS Your Current Medications: Your current home medications have been reviewed. CONTINUE TAKING THE FOLLOWING MEDICATIONS: Advair Diskus Inhalation. Claritin Oral : 10 mg daily. Flovent Diskus Inhalation. ProAir HFA Inhalation : 2 puffs, prn. Spiriva HandiHaler Inhalation. Zyrtec Allergy*. Prescription Medications: albuterol sulfate HFA 90 mcg/actuation aerosol inhaler Inhale 2 puff four times a day -- Dispense 8.5 gram. Refills: 3. Substitution permitted. 3 Clinical Report - Physicians/Mid Levels [facility] Emergency Department [address] [place] [address] Phone #: ext- [phone] 07/15/2020 18:21 [id number] Sex: M : 1985 Age: 34y Pharmacy - [facility] - [id number] ; [place] [address]. . Follow-up: Follow up with your doctor. Call for the next available appointment. Reason for referral: evaluation and treatment. Summary of care provided to patient. Understanding of the discharge instructions verbalized by patient.(Electronically signed by NENO Baum 07/15/2020 21:10) Name Value Range Interpretation Code Description Data Sherry rce(s) Supporting Document(s) ID Date Data Source [id number] 04/09/2020 03:18:00 PM EDT [facility] ([facility], ) Name Value Range Interpretation Code Description Data Sherry rce(s) Supporting Document(s) PDFReport Laboratory test result [facility] ([facility], ) FVC-Pre 4.90 L [facility] ([facility]) FVC-Pred 5.26 L [facility] ([facility]) Fev1-Pred 4.27 L [facility] ([facility]) FVC-LLN 4.35 L [facility] ([facility]) FVC-%Pred-Pre 93 L [facility] ([facility]) Fev1-LLN 3.50 L [facility] ([facility]) Fev1-Pre 3.42 L [facility] ([facility]) Fev1-%Pred-Pre 80 L [facility] ([facility]) Fev6-%Pred-Pre 93 L [facility] ([facility]) Fev6-LLN 4.29 L [facility] ([facility]) Fev6-Pred 5.18 L [facility] ([facility]) Fev6-Pre 4.84 L [facility] ([facility]) Piw7yse-Femc 81 % [facility] ([facility]) Seq2lsq-%Pred-Pre 85 % [facility] ([facility]) Jbb8gvl-Efd 70 % [facility] ([facility]) Epv1lnz-Wdth 98 % [facility] ([facility]) Fjt6vlc-WEE 72 % [facility] ([facility]) Pps1ffx-Hkd 99 % [facility] ([facility]) Gxg1srv-%Pred-Pre 100 % [facility] ([facility]) FEFMax-Pre 7.69 L/E/sec [facility] ([facility]) FEFMax-Pred 10.03 L/E/sec [facility] ([facility]) FEFMax-%Pred-Pre 76 L/E/sec [facility] ([facility]) Qbk0628-%Pred-Pre 56 L/E/sec [facility] ([facility]) Xap7030-Dayi 4.23 L/E/sec [facility] ([facility]) Kmf5561-Kik 2.38 L/E/sec [facility] ([facility]) FEFMax-LLN 7.78 L/E/sec [facility] ([facility]) Pqu4550-OVD 2.67 L/E/sec [facility] ([facility]) Amw1vpx8-Zecb 83 % [facility] ([facility]) ExpTime-Pre 7.52 sec [facility] ([facility]) Uhw8nxc3-%Pred-Pre 85 % [facility] ([facility]) Cai6ezd3-Eom 71 % [facility] ([facility]) Pnd0ucs2-LJS 74 % [facility] ([facility]) ID Date Data Source [id number] 02/08/2020 10:03:00 AM EDT [facility] ([facility]) Name Value Range Interpretation Code Description Data Sherry rce(s) Supporting Document(s) PDFReport Laboratory test result [facility] ([facility]) FVC-Pred 5.26 L [facility] ([facility]) FVC-Pre 4.93 L [facility] ([facility], ) FVC-LLN 4.35 L [facility] ([facility], ) FVC-%Pred-Pre 93 L [facility] ([facility], ) Fev1-Pre 3.32 L [facility] ([facility], ) Fev1-Pred 4.27 L [facility] ([facility], ) Fev1-%Pred-Pre 77 L [facility] ([facility], ) Fev6-Pred 5.18 L [facility] ([facility], ) Fev1-LLN 3.50 L [facility] ([facility], ) Fev6-Pre 4.92 L [facility] ([facility], ) Fev6-%Pred-Pre 95 L [facility] ([facility], ) Fev6-LLN 4.29 L [facility] ([facility], ) Rbt3zfh-Euir 81 % [facility] ([facility], ) Yxk8ijd-Ent 67 % [facility] ([facility]) Sfh9ekc-%Pred-Pre 82 % [facility] ([facility]) Wmi5yef-ROI 72 % [facility] ([facility]) Sid9fzp-%Pred-Pre 101 % [facility] ([facility]) Kwz2qgz-Fmcl 98 % [facility] ([facility], ) Vfy4wvn-Xsv 100 % [facility] ([facility]) FEFMax-Pred 10.03 L/E/sec [facility] ([facility]) FEFMax-Pre 8.17 L/E/sec [facility] ([facility]) FEFMax-%Pred-Pre 81 L/E/sec [facility] ([facility]) Nsn7872-Qwew 4.23 L/E/sec [facility] ([facility]) FEFMax-LLN 7.78 L/E/sec [facility] ([facility]) Aet7042-Jwl 2.24 L/E/sec [facility] ([facility]) Xaa4672-%Pred-Pre 53 L/E/sec [facility] ([facility]) Uwb8498-APZ 2.67 L/E/sec [facility] ([facility]) ExpTime-Pre 6.26 sec [facility] ([facility]) Pgn9wcs4-Cozn 83 % [facility] ([facility]) Lkk2jxu7-Ssd 67 % [facility] ([facility]) Kyk6bru6-PDR 74 % [facility] ([facility]) Hcn3eef9-%Pred-Pre 81 % [facility] ([facility]) ID Date Data Source [id number] 10/13/2019 11:33:00 AM EST [facility] ([facility]) Name Value Range Interpretation Code Description Data Sherry rce(s) Supporting Document(s) [id number] D pteronyssinus 5.45 kU/L Abnormal (applie s to non-numeric results) [facility] ([facility]) Class Description Laboratory test result Normal (applies to non-numeric results) [facility] ([facility]) <content>.</content>
<content>Levels of Specific IgE Class Description of Class</content>
<content> ----- </content>
<content>< 0.10 0 Negative</content>
<content>0.10 - 0.31 0/I Equivocal/Low</content>
<content>0.32 - 0.55 I Low</content>
<content>0.56 - 1.40 II Moderate</content>
<content>1.41 - 3.90 III High</content>
<content>3.91 - 19.00 IV Very High</content>
<content>19.01 - 100.00 V Very High</content>
<content>>100.00 Very High</content>
<content></content> Z744-DcZ Dog Dander 8.29 kU/L Abnormal (applies to non-nu meric results) [facility] ([facility], ) E518-ZeP Cat Epith/Dander 17.50 kU/L Abnorm al (applies to non-numeric results) [facility] ([facility], ) O291-MqD D farinae Mite 4.65 kU/L Abnormal (applies to no n-numeric results) [facility] ([facility], ) Q521-OkX [place] 3.51 kU/L Abno rmal (applies to non-numeric results) [facility] ([facility], ) I831-WcT [place] 1.13 kU/L Abnormal (applies to non-n umeric results) [facility] ([facility], ) S857-VjF [place] 1.58 kU/L Abnormal (applies to non -numeric results) [facility] ([facility], ) J454-JkU Cockroach, Romanian 2.89 kU/L Abn ormal (applies to non-numeric results) [facility] ([facility], ) Y231-BjK Penicillium chrysogen Laboratory test result Normal (applies to non- numeric results) [facility] ([facility], ) M003 IgE Aspergillus fumigatu Laboratory test result Normal (applies to non- numeric results) [facility] ([facility], ) M002 IgE Cladosporium herbaru Laboratory test result Normal (applies to non- numeric results) [facility] ([facility], ) S353-JsQ Stemphylium Herbarum 0.16 kU/L Ab normal (applies to non-numeric results) [facility] ([facility], ) A890-SuA Alternaria alternata Laboratory test result Normal (applies to non- numeric results) [facility] ([facility], ) Y360-HgK Mucor racemosus Laboratory test result Normal (applies to non-numeric results) [facility] ([facility], ) M708-DuR Elm, Romanian 0.11 kU/L Abnormal (applies to non -numeric results) [facility] ([facility], ) K644-HjI [place], White 2.79 kU/L Abnormal (applies to non-nu meric results) [facility] ([facility], ) P212-WgT Common Silver Birch 7.80 kU/L Abn ormal (applies to non-numeric results) [facility] ([facility], ) K260-YqO [place]el[place] 4.78 kU/L Abnormal (applies to non -numeric results) [facility] ([facility], ) I298-YsN Ezekiel, White 0.47 kU/L Abnormal (applies to non-nu meric results) [facility] ([facility], ) R279-KoT [place], White 1.13 kU/L Abnormal (applies to no n-numeric results) [facility] ([facility], ) O059-FrY Maple/[place] 0.45 kU/L Abnormal (applie s to non-numeric results) [facility] ([facility], ) P153-MqX [place], [place] 4.89 kU/L Abnormal (applie s to non-numeric results) [facility] ([facility], ) F458-IdW Ragweed, Short 5.27 kU/L Abnormal (applies to no n-numeric results) [facility] ([facility], ) O351-KlE [place] Laboratory test result N ormal (applies to non-numeric results) [facility] ([facility], ) W221-AhR Plantain, [place] 0.13 kU/L Abnor mal (applies to non-numeric results) [facility] ([facility], ) U251-MhI Pigweed, Rough Laboratory test result N ormal (applies to non-numeric results) [facility] ([facility], ) P145-OiU Mugwort 0.18 kU/L Abnormal (applies to non-numer ic results) [facility] ([facility], ) V998-EvO Sheep [place] 0.10 kU/L Abnormal (applies to non- numeric results) [facility] ([facility], ) O052-PdF N[place] 0.13 kU/L Abnormal (applies to non-numeri c results) [facility] ([facility]) Performed at: [facility] Lab[address] [id number] Entry Rep: Jaime Jackson MD, Phone: [phone] ID Date Data Source [id number] 10/13/2019 11:33:00 AM EST [facility] ([facility]) Name Value Range Interpretation Code Description Data Sherry rce(s) Supporting Document(s) IgE [Mass/volume] in Serum 247.0 IU/ml Above high normal [facility] ([facility]) ID Date Data Source [id number] 10/13/2019 11:33:00 AM EST [facility] ([facility]) Name Value Range Interpretation Code Description Data Sherry rce(s) Supporting Document(s) Red Blood Count 5.49 10 4.30-6.10 Normal (applies to non-numeric results) [facility] ([facility]) Hemoglobin 17.1 g/dL 13.5-17.5 Normal (applies to non-numeric resul ts) [facility]) White Blood Count 7.9 10 4.0-10.0 Normal (applies to non-numeri c results) [facility] ([facility]) Mean Corpuscular Hemoglobin 31.1 pg 27.0-33.0 Norm al (applies to non-numeric results) [facility] ([facility]) Hematocrit 51.2 % 42.0-52.0 Normal (applies to non-numeric resul ts) [facility]) Mean Corpuscular Volume 93.3 fl 80.0-96.0 Normal ( applies to non-numeric results) [facility]) Red Cell Distribution Width 12.0 % 11.5-14.5 Norm al (applies to non-numeric results) [facility]) Mean Corpuscular HGB Conc 33.4 g/dL 32.0-36.5 Normal (applies to non-numeric results) [facility]) Platelet Count, Automated 251 10 150-450 Normal (applies to non-numeric results) [facility]) Neutrophils % 63.2 % 36.0-66.0 Normal (applies to non-numeric re sults) [facility] ([facility]) Lymph % 29.3 % 24.0-44.0 Normal (applies to non-numeric resul ts) [facility] ([facility]) Eos % 1.1 % 0.0-3.0 Normal (applies to non-numeric resul ts) [facility] ([facility]) [place] % 5.6 % 0.0-5.0 Above high normal [facility] ([facility]) Baso % 0.4 % 0.0-1.0 Normal (applies to non-numeric resul ts) [facility] ([facility]) Nucleated Red Blood Cell % 0.0 % 0-0 Normal (applies to n on-numeric results) [facility] ([facility]) Immature Granulocyte % 0.4 % 0-3.0 Normal (applies to non-n umeric results) [facility] ([facility]) [place] # 0.4 10 0.0-0.8 Normal (applies to non-numeric resul ts) [facility] ([facility]) Neutrophils # 5.0 10 1.5-8.5 Normal (applies to non-numeric re sults) [facility] ([facility]) Lymph # 2.3 10 1.5-5.0 Normal (applies to non-numeric resul ts) [facility] ([facility]) Eos # 0.1 10 0.0-0.5 Normal (applies to non-numeric resul ts) [facility] ([facility]) Baso # 0.0 10 0.0-0.2 Normal (applies to non-numeric resul ts) [facility] ([facility]) ID Date Data Source [id number] 10/06/2019 07:59:00 PM EST [facility] 1 OrderSheet [facility] Emergency Department [address] [place] [address] Phone #: ext- [phone] 10/06/2019 19:33 Patient: NIRMAL RAMAN Sex: M : 1985 Age: 33yWEIGHT:97.5 kg (S) HEIGHT:69 inches (S) BMI:31.8ALLERGIES: Iodine, SeafoodCHIEF COMPLAINT: Rx refillDIAGNOSIS: Medication refillLAB ORDERSOrder Description Priority Entered Acknowledged InitialedDIAGNOSTIC STUDY ORDERSOrder Description Priority Entered Acknowledged InitialedMEDICATION/IV/DRIP/FLUID ORDERSOrder Description Priority Entered Acknowledged InitialedAlbuterol MDI 2 20:41 10/06/2019 20:46 shelia Domínguez Riccardo Scott R.N. M.D.;GENERAL ORDERSOrder Description Priority Entered Acknowledged Initialed[Electronically signed by Zeeshan Domínguez R.N. (20:48 10/06/2019)][Electronically signed by Saurav Sellers M.D. (22:00 )][Electronically locked by Zeeshan Domínguez R.N. (20:48 10/06/2019)] Name Value Range Interpretation Code Description Data Sherry rce(s) Supporting Document(s) ID Date Data Source [id number] 10/06/2019 07:59:00 PM EST [facility] 1 Medication Reconciliation Report [facility] Emergency Department [address] [place] [address] Phone #: ext- [phone] 10/06/2019 19:33 Patient: NIRMAL RAMAN Sex: M : 1985 Age: 33yWeight: 97.5 kgHeight/Length: 69 in.BMI: 31.8ALLERGIES: Iodine, SeafoodThe patient's Home Medications are listed below:CONTINUE TAKING THE FOLLOWING MEDICATIONS: Advair Diskus Inhalation 2 puffs, daily Albuterol Sulfate HFA Inhalation 2 puffs, daily, and prior to PT, prn,every AM Claritin Oral 10 mg, daily Epi pen ZyrTEC Allergy Childrens Oral 10 mg, dailyThe source(s) of the original Home Medication information:patientThe following Medications were given to the patient in the Emergency Department:Albuterol [MDI] Inhalation 1 puff, administered: 10/06/2019 8:46:00 PMThe following Medications were prescribed to the patient:None. Name Value Range Interpretation Code Description Data [facility](s) Supporting Document(s) ID Date Data Source [id number] 10/06/2019 07:59:00 PM [facility] 1 Medication Administration Record [facility] Emergency Department [address] [place] [address] Phone #: ext- [phone] 10/06/2019 19:33 Patient: NIRMAL RAMAN Sex: M : 1985 Age: 33yWeight: 97.5 kgHeight/Length: 69 inBMI: 31.8ALLERGIES: Iodine, Seafood Date/Time Medication Administered Medication OrderedGiven ALBUTEROL [MDI] Albuterol MDI 2 puff20:46 10/06/2019 Dose: 1 puff MDI/Aerosol InhalationZeeshan Domínguez R.N. Name Value Range Interpretation Code Description Data [facility](s) Supporting Document(s) ID Date Data Source [id number] 10/06/2019 07:59:00 PM [facility] 1 General Instructions [facility] Emergency Department [address] [place] [address] Phone #: ext- [phone] 10/06/2019 19:33 Patient: NIRMAL RAMAN Sex: M : 1985 Age: 33yMedication refill (Albuterol Inhaler).INSTRUCTIONS (IT IS STRONGLY ADVISED THAT YOU GO TO YOUR [facility] FOR FUTURE ALBUTEROL REFILLS, SINCE THIS IS THE 7TH TIME IN 8 MONTHS).Warnings: Further evaluation is necessary. It is very important to follow up with a healthcare provider.GENERAL WARNINGS: Return or contact your physician immediately if your condition worsens orchanges unexpectedly, if not improving as expected, or if other problems arise. Sp ecifically return if pain,vomiting, bleeding, breathing difficulty or fever greater than 102 degrees F and not controlled byacetaminophen or ibuprofen worsens.Your Current Medications: Your current home medications have been reviewed.CONTINUE TAKING THE FOLLOWING MEDICATIONS:Advair Diskus Inhalation : 2 puffs daily.Albuterol Sulfate HFA Inhalation : 2 puffs daily, prn, every AM, and prior to PT.Claritin Oral : 10 mg daily.Epi pen*.ZyrTEC Allergy Childrens Oral : 10 mg daily.Follow-up:Return to the emergency department as needed. Follow up with your healthcare provider in five days ifnot better. Call for an appointment. Reason for referral: evaluation and treatment. Summary of careprovided to patient via paper.Understanding of the discharge instructions verbalized by patient. Expected course of illness, dischargeinstructions, activity level, diet, prescriptions x1, follow-up appointment and risks and benefits of treatmentreviewed with patient and understanding verbalized. Agrees to plan of care. 2 General Instructions [facility] Emergency Department [address] [place] [address] Phone #: [phone]- [phone] 10/06/2019 19:33 Patient: NIRMAL RAMAN Sex: M : 1985 Age: 33y(Electronically signed by Saurav Sellers M.D. 10/06/2019 22:00) Name Value Range Interpretation Code Description Data Sherry rce(s) Supporting Document(s) ID Date Data Source [id number] 10/06/2019 07:59:00 PM EST [facility] 1 Clinical Report - Nurses [facility] Emergency Department [address] [place] [address] Phone #: ext- [phone] 10/06/2019 19:33 Patient: NIRMAL RAMAN Sex: M : 1985 Age: 33yTRIAGEArrived by private vehicle. Historian: patient. Unaccompanied.Triage time: 19:34 10/06/2019. Acuity: LEVEL 4.Chief Complaint: PRESCRIPTION REFILL REQUEST Albuterol inhaler.Alert. No acute distress. ( Pt states he drank an energy drink prior t coming in).This started today. ( Pt has been seen in this facility for this multiple times in the past. Pt states he losthis today while he was in the field and was unable to get to [facility] in time to refill. Pt states he loses itoften because he always carries it on him. 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 Negative (no infection suspected/documented). (19:38 10/06/2019).--19:39 10/06/19 Taylor Ace R.N.19:34 10/06/19. BP: 145/103. MAP: 117. HR: 97. RR: 18. O2 saturation: 96% on room air. Temp: 97.8 F(oral). Pain level now: 0/10. --19:39 10/06/19 Taylor Ace R.N.Weight: 97.5 kg stated. Height/Length: 69 inches Per Patient. BMI: 31.8. --19:34 10/06/19 Taylor Ace R.N.MedicationsAdvair D iskus Inhalation 2 puffs, daily. --19:35 10/06/19 Taylor Ace R.N. Albuterol Sulfate HFA Inhalation 2 puffs, daily as needed, every AM (and prior to PT). --19:35 10/06/19Taylor Ace R.N. Claritin Oral 10 mg, daily. --19:36 10/06/19 Taylor Ace R.N. ZyrTEC Allergy Childrens Oral 10 mg, daily. --19:36 10/06/19 Taylor Ace R.N. Epi pen. --19:36 10/06/19 Taylor cAe R.N.AllergiesSeafood. --19:36 10/06/19 Taylor Ace R.N.Iodine. --19:36 10/06/19 Taylor Ace R.N.Medication/allergy information source: the patient. --19:39 10/06/19 Taylor Ace R.N.ADDITIONAL SURGERIES:Dental Surgery. --19:36 10/06/19 Taylor Ace R.N. 2 Clinical Report - Nurses [facility] Emergency Department [address] [place] [address] Phone #: ext- [phone] 10/06/2019 19:33 Patient: NIRMAL RAMAN Sex: M : 1985 Age: 33y History PAST MEDICAL HX: Immunizations: up-to-date. SOCIAL HX: Never smoker. Occasional alcohol use. No drug use. He was offered HIV testing but declined. Patient education was provided. He was offered hepatitis C testing but declined. Patient education was provided. He has not traveled outside the [place] Infectious disease exposure: No infectious disease exposure. Patient is not a known carrier of tuberculosis, hepatitis, HIV, MRSA or VRE. Patient is not a known carrier of CRE. SELF HARM ASSESSMENT: Self harm assessment was performed. The patient answered "no" to the question(s) "Do you have thoughts of harming or killing yourself?" and "Do you have a plan for harming or killing yourself?". ABUSE ASSESSMENT: Abuse assessment. The patient had positive responses to the question(s) "Do you feel safe in your home?". Abuse denied. No suspicion of abuse. No report of abuse. NUTRITIONAL RISK ASSESSMENT: The nutritional risk assessment revealed no deficiencies. FUNCTIONAL ASSESSMENT: Functional assessment: no impairments noted. LEARNING NEEDS ASSESSMENT: The learning needs assessment revealed no barriers. FALL RISK ASSESSMENT: Fall risk assessment completed. No risk factors identified. SKIN INTEGRITY ASSESSMENT: Skin integrity risk assessment completed. No skin integrity risk identified. --19:39 10/06/19 Taylor Ace R.N. Interventions Identification band on patient. --19:39 10/06/19 Taylor Ace R.N. To treatment room. --19:49 10/06/19 Taylor Ace R.N.PHYSICAL ASSESSMENTAmbulatory to room.GENERAL / NEURO / PSYCH: Alert. Oriented X 4. Appears in no acute distress.RESPIRATORY: Respirations not labored. Breath sounds within normal limits.SKIN: Skin intact. Skin is warm and dry. --19:49 10/06/19 Taylor Ace R.N.NURSING PROGRESS NOTES19:49 10/06/19. BP: 149/90. MAP: 109. --19:49 10/06/19 Taylor Ace R.N. Reassurance given. Three patient identifiers checked. Call light placed in reach. Side rails up x 2. Bed placed in lowest position. Brakes of bed on. Patient ready for evaluation- ED physician and PA notified. --19:49 10/06/19 Taylor Ace R.N. 3 Clinical Report - Nurses [facility] Emergency Department [address] [place] [address] Phone #: ext- [phone] 10/06/2019 19:33 [id number] Sex: M : 1985 Age: 33y 20:46 10/06/2019 Albuterol Inhalation MDI/Aerosol 1 puff given. Given by the nurse. Allergies verified and confirmed 5 rights. Information reviewed with patient. --20:46 10/06/19 Zeeshan Domínguez R.N. ( Pt [facility] for inhaler to go, [facility] Pt informed that he should make appt ahead of time and not wait until inhaler runs out"). --20:47 10/06/19 Zeeshan Domínguez R.N. 20:47 10/06/19. Pain level now 0/10. --20:47 10/06/19 Zeeshan Domínguez R.N.DISPOSITION / DISCHARGE 20:39 10/06/19. BP: 144/96. MAP: 112. HR: 105. RR: 18. O2 saturation: 96%. Temp: 98.1 F. 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 Discharge instructions provided and reviewed with the patient. Reviewed medication(s) information. Reviewed referral to a primary care physician. Patient verbalized understanding. Written instructions provided in Cymraes. The patient was discharged by the nurse practitioner. He was discharged home. He left ambulatory and via private vehicle. Patient driving. --20:48 10/06/19 Zeeshan Domínguez R.N.Locked/Released at 10/06/2019 20:48 by Zeeshan Domínguez R.N. Name Value Range Interpretation Code Description Data Sherry rce(s) Supporting Document(s) ID Date Data Source [id number] 10/06/2019 07:59:00 PM EST [facility] 1 Clinical Report - Physicians/Mid Levels [facility] Emergency Department [address] [place] [address] Phone #: ext- [phone] 10/06/2019 19:33 [id number] Sex: M : 1985 Age: 33y Time Seen: 19:56 10/06/2019; initial patient contact. Arrived- By private vehicle. Historian- patient. Disposition decision: 20:28 10/06/2019.HISTORY OF PRESENT ILLNESS Chief Complaint: PRESCRIPTION REFILL REQUEST Albuterol inhaler. This started today. At its maximum, severity described as 0 / 10. When seen in the E.D., severity described as 0 / 10. Modifying factors- worsened by walking. Relieved by rest. No loss of appetite, weight loss, headache, visual disturbance or fatigue. No muscle aches or weakness. Denies sleep problem. No decreased urine output. No current or associated symptoms. 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 [facility] on time for refill; pt has been here 7 times in last 8 months for albuterol refill!). Similar symptoms previously. Patient has had similar symptoms many times. Recent medical care: Not recently seen/assessed.REVIEW OF SYSTEMSNo fever, sore throat, sinus drainage, nasal congestion or cough. No difficulty breathing, chest pain,abdominal pain, nausea or vomiting. No diarrhea, black stools, bloody stools, chills or difficulty withurination. No skin rash, back pain, calf pain, headache or blackouts. No double vision. No difficulty withambulation. All other systems reviewed and are negative.PAST HISTORYSee nurses notes. Problems: Allergic Rhinitis. Obstructive Sleep Apnea. Additional Surgeries: Dental Surgery. Medications: Epi pen. ZyrTEC Allergy Childrens Oral 10 mg, daily. Claritin Oral 10 mg, daily. Albuterol Sulfate HFA Inhalation 2 puffs, daily as needed, every AM (and prior to PT). Advair Diskus Inhalation 2 puffs, daily. Allergies: 2 Clinical Report - Physicians/Mid Levels [facility] Emergency Department [address] [place] [address] Phone #: ext- [phone] 10/06/2019 19:33 Patient: NIRMAL RAMAN [facility]#: [id number] Sex: M : 1985 Age: 33y Iodine. Seafood.SOCIAL HISTORYNever smoker. No alcohol use or drug use.ADDITIONAL NOTESThe nursing notes have been reviewed with agreement regarding the chief complaint, HPI, ROS, PMH andpatient medications and allergies.PHYSICAL EXAMVital Signs: 10/06/2019 19:49 BP: 149/90. MAP: 109.10/06/2019 19:34 BP: 145/103. MAP: 117. HR: 97. RR: 18. O2 saturation: 96% on room air. Temp: 97.8 F.Pain level now: 0/10. Have been reviewed. Oxygen saturation normal.Appearance: Alert. No acute distress.Eyes: Pupils equal, round and reactive to light. Eyes normal inspection.ENT: Ears normal. Nose normal. Pharynx normal.Neck: Normal inspection. Neck supple.CVS: Normal heart rate and rhythm. Heart sounds normal. Pulses normal.Respiratory: No respiratory distress. Painless inspiration. Breath sounds normal. Chest nontender.Abdomen: No visible injury. Soft and nontender. Bowel sounds normal. No organomegaly. No mass.Femoral pulses equal.Back: Normal inspection.Skin: Skin warm and dry. Normal skin color. No rash. Normal skin turgor.Extremities: Extremities exhibit normal ROM. No lower extremity edema.Neuro: Oriented X 3. No motor deficit. No sensory deficit. Reflexes normal.PROGRESS AND PROCEDURESCourse of Care: 20:27 10/06/19. pt is strongly advised to go to [facility] for his albuterol refill. Patient counseled in person regarding the patient's stable condition, diagnosis and need for follow-up. Patient agrees with plan of care. Disposition: Condition: good and stable. Discharge decision based on the following: patient's condition is stable; patient's condition is improved; patient is ambulatory; patient is active; patient drinking fluids; patient eating; patient's pain is controlled; patient's exam is improved; improving condition on repeat evaluation; social support is good; transportation is available; follow- up is available; clinical impression is consistent with outpatient treatment.CLINICAL IMPRESSION Medication refill (Albuterol Inhaler). 3 Clinical Report - Physicians/Mid Levels [facility] Emergency Department [address] [place] [address] Phone #: ext- [phone] 10/06/2019 19:33 Patient: NIRMAL RAMAN Sex: M : 1985 Age: 33yINSTRUCTIONS (IT IS STRONGLY ADVISED THAT YOU GO TO YOUR [facility] FOR FUTURE ALBUTEROL REFILLS, SINCE THIS IS THE 7TH TIME IN 8 MONTHS). Warnings: Further evaluation is necessary. It is very important to follow up with a healthcare provider. GENERAL WARNINGS: Return or contact your physician immediately if your condition worsens or changes unexpectedly, if not improving as expected, or if other problems arise. Specifically return if pain, vomiting, bleeding, breathing difficulty or fever greater than 102 degrees F and not controlled by acetaminophen or ibuprofen worsens. Your Current Medications: Your current home medications have been reviewed. CONTINUE TAKING THE FOLLOWING MEDICATIONS: Advair Diskus Inhalation : 2 puffs daily. Albuterol Sulfate HFA Inhalation : 2 puffs daily, prn, every AM, and prior to PT. Claritin Oral : 10 mg daily. Epi pen*. ZyrTEC Allergy Childrens Oral : 10 mg daily. Follow-up: Return to the emergency department as needed. Follow up with your healthcare provider in five days if not better. Call for an appointment. Reason for referral: evaluation and treatment. Summary of care provided to patient via paper. Understanding of the discharge instructions verbalized by patient. Expected course of illness, discharge instructions, activity level, diet, prescriptions x1, follow-up appointment and risks and benefits of treatment reviewed with patient and understanding verbalized. Agrees to plan of care.(Electronically signed by Saurav Sellers M.D. 10/06/2019 22:00) Name Value Range Interpretation Code Description Data Sherry rce(s) Supporting Document(s) ID Date Data Source [id number] 09/17/2019 03:07:00 PM [facility] 1 Medication Reconciliation Report [facility] Emergency Department [address] [place] [address] Phone #: ext [phone] 09/17/2019 14:51 Patient: NIRMAL RAMAN Sex: M : 1985 Age: 33yWeight: 92.9 kgHeight/Length: 69 in.BMI: 30.3ALLERGIES: No Known Drug AllergyThe patient's Home Medications are listed below:THE FOLLOWING MEDICATIONS NEED TO BE RECONCILED: Advair HFA Inhalation Claritin Oral ZyrTEC Allergy Childrens OralThe source(s) of the original Home Medication information:Not obtained.The following Medications were given to the patient in the Emergency Department:None.The following Medications were prescribed to the patient:Proventil HFA 90 mcg/actuation aerosol inhaler Inhale 2 puff every four hours as needed -- and beforeexercise. Dispense 1 inhaler. Refills: 0. Substitution permitted.Pharmacy - [facility] [phone] ; [place] [address]. . -- Justin Nuñez M.D. Name Value Range Interpretation Code Description Data Sherry rce(s) Supporting Document(s) ID Date Data Source [id number] 09/17/2019 03:07:00 PM [facility] 1 Medication Administration Record [facility] Emergency Department [address] [place] [address] Phone #: ext [phone] 09/17/2019 14:51 Patient: NIRMAL RAMAN Sex: M : 1985 Age: 33yWeight: 92.9 kgHeight/Length: 69 inBMI: 30.3ALLERGIES: No Known Drug AllergyDate/Time Medication Administered Medication Ordered Name Value Range Interpretation Code Description Data Sherry rce(s) Supporting Document(s) ID Date Data Source [id number] 09/17/2019 03:07:00 PM EST [facility] 1 General Instructions [facility] Emergency Department [address] [place] [address] Phone #: ext- [phone] 09/17/2019 14:51 Patient: NIRMAL RAMAN Sex: M : 1985 Age: 33yModerate persistent asthma. No acute exacerbation or status asthmaticus.INSTRUCTIONSPrescription Medications:Proventil HFA 90 mcg/actuation aerosol inhaler Inhale 2 puff every four hours as needed -- and beforeexercise. Dispense 1 inhaler. Refills: 0. Substitution permitted.Pharmacy - [facility] [phone] ; [place] [address]. .Follow-up:Return to the emergency department if persistent fever or shortness of breath. Follow up with yourhealthcare provider even if well. Call for the next available appointment. Reason for referral: evaluation andtreatment. ADDITIONAL INFORMATIONAsthma (Adult)Asthma is a disease where the medium and small air passages within the lung go into spasm andrestrict the flow of air. Inflammation and swelling of the airways cause further blockage. During anacute asthma attack, these factors cause trouble breathing, wheezing, cough and chest tightness. 2 General Instructions [facility] Emergency Department [address] [place] [address] Phone #: ext- [phone] 09/17/2019 14:51 Patient: NIRMAL RAMAN Sex: M : 1985 Age: 33yAn asthma attack can be triggered by many things. Common triggers include infections such as thecommon cold, bronchitis, and pneumonia. Irritants such as smoke or pollutants in the air, very coldair, emotional upset, and exercise can also trigger an attack. In many adults with asthma, allergiesto dust, mold, pollen and animal dander can cause an asthma attack. Skipping doses of daily asthmamedicine can also bring on an asthma attack.Asthma can be controlled using the proper medicines prescribed by your healthcare provider andavoiding exposure to known triggers including allergens and irritants.Home care Take prescribed medicine exactly at the times advised. If you need medicine such as from a hand held inhaler or aerosol breathing machine more than every 4 hours, contact your healthcare provider or seek immediate medical attention. If prescribed an antibiotic or prednisone, take all of the medicine as prescribed, even if you are feeling better after a few days. Don't smoke. Avoid being exposed to the smoke of others. 3 General Instructions [facility] Emergency Department [address] [place] [address] Phone #: ext- [phone] 09/17/2019 14:51 Patient: NIRMAL RAMAN Sex: M : 1985 Age: 33y Some people with asthma have worsening of their symptoms when they take aspirin and non-steroidal or fever-reducing medicines like ibuprofen and naproxen. Talk to your healthcare provider if you think this may apply to you.Follow-up careFollow up with your healthcare provider, or as advised. Always bring all of your current medicines toany appointments with your healthcare provider. Also bring a complete list of medicines even thosenot taken for asthma. If you don't already have one, talk to your healthcare provider about developingyour own "Asthma Action Plan."A pneumococcal (pneumonia) vaccine and yearly flu shot (every fall) are recommended. Ask yourdoctor about this.When to seek medical adviceCall your healthcare provider right away if any of these occur: Increased wheezing or shortness of breath Need to use your inhalers more often than usual without relief Fever of 100.4F (38C) or higher, or as directed by your healthcare provider Coughing up lots of dark-colored or bloody sputum (mucus) Chest pain with each breath If you use a peak flow meter as part of an Asthma Action Plan, and you are still in the yellow zone (50% to 80%) 15 minutes after using inhaler medicine.Call 911Call 911 if any of the following occur Trouble walking or talking because of shortness of breath If you use a peak flow meter as part of an Asthma Action Plan and you are still in the red zone (less than 50%) 15 minutes after using inhaler medicine Lips or fingernails turning gardner or blue [id number] [employer]. [address] [place] [address]. All rights reserved. This information is not intended as asubstitute for professional medical care. Always follow your healthcare professional's instructions. You have been given the following additional information: 4 General Instructions [facility] Emergency Department [address] [place] [address] Phone #: ext- [phone] 09/17/2019 14:51 Patient: NIRMAL RAMAN Sex: M : 1985 Age: 33yAsthma, Acute (Adult)(Electronically signed by Justin Nuñez M.D. 09/17/2019 16:03) Name Value Range Interpretation Code Description Data Sherry rce(s) Supporting Document(s) ID Date Data Source [id number] 09/17/2019 03:07:00 PM EST [facility] 1 Clinical Report - Nurses [facility] Emergency Department [address] [place] [address] Phone #: ext- [phone] 09/17/2019 14:51 Patient: NIRMAL RAMAN Sex: M : 1985 Age: 33yTRIAGEArrived by private vehicle. Historian: patient.Acuity: LEVEL 5.Chief Complaint: (pt in need for a albuterol nebulizer refill).Alert. No acute distress.This started today. --14:55 09/17/19 Tova Nieves R.N.14:52 09/17/19. BP: 146/95. MAP: 112. HR: 99. RR: 20. O2 saturation: 97%. Temp: 98.1 F. Pain levelnow: 0/10. --14:55 09/17/19 Tova Nieves R.N.( patient ran out of his nebulizer today, does not want to wait until Thursday for refill.). --14:56 09/17/19Tova Nieves R.N. Correction --14:58 09/17/19 Tova Nieves R.N.( patient ran out of his recue inhaler, does not want to wait until Thursday for a refill.). --14:58 09/17/19Tova Nieves R.N.Weight: 92.9 kg stated. Height/Length: 69 inches Per Patient. BMI: 30.3. --14:51 09/17/19 Tova Nieves R.N.MedicationsZyrTEC Allergy Childrens Oral. --14:53 09/17/19 Tova Nieves R.N. Claritin Oral. --14:53 09/17/19 Tova Nieves R.N. Advair HFA Inhalation. --14:53 09/17/19 Tova Nieves R.N.AllergiesNo Known Drug Allergy. --14:53 09/17/19 Tova Nieves R.N.PROBLEMS:Sleep Apnea.Asthma. --14:54 09/17/19 Tova Nieves R.N.HistoryPAST MEDICAL HX: Immunizations: up-to-date. Last oral intake by patient was lunch.SOCIAL HX: Never smoker. Occasional alcohol use. No drug use. He was offered HIV testing butdeclined and hepatitis C testing but declined. He has not traveled outside the [place]Infectious disease exposure: No infectious disease exposure. The patient was not exposed to C- diff,MRSA, VRE or CRE.SELF HARM ASSESSMENT: Self harm assessment was performed. The patient answered "no" to the 2 Clinical Report - Nurses [facility] Emergency Department [address] [place] [address] Phone #: ext- [phone] 09/17/2019 14:51 Patient: NIRMAL RAMAN Sex: M : 1985 Age: 33y question(s) "Have you recently felt down, depressed, or hopeless?", "Do you have thoughts of harming or killing yourself?", "Do you have a plan for harming or killing yourself?", "Have you recently had thoughts about harming or killing others?", "Do you have any dangerous items in your possession?", "Have you noticed less interest or pleasure in doing things?", "Are you here because you tried to hurt yourself?" and "Have you ever tried to hurt yourself before today?". ABUSE ASSESSMENT: No report of abuse. NUTRITIONAL RISK ASSESSMENT: The nutritional risk assessment revealed no deficiencies. FUNCTIONAL ASSESSMENT: Functional assessment: no impairments noted. LEARNING NEEDS ASSESSMENT: The learning needs assessment revealed no barriers. SKIN INTEGRITY ASSESSMENT: Skin integrity risk assessment completed. No skin integrity risk identified. --14:55 09/17/19 Tova Nieves R.N. FALL RISK ASSESSMENT: Fall risk assessment completed. No risk factors identified. --15:13 09/17/19 Jennifer Rueda R.N.PHYSICAL ASSESSMENTAmbulatory to room.GENERAL / NEURO / PSYCH: Alert. Oriented X 4. Appears in no acute distress.HEENT: Pupils equal, round and reactive to light.RESPIRATORY: Respirations not labored.CVS: Normal sinus rhythm noted.GI / : Abdomen soft.SKIN: Skin is warm. --14:57 09/17/19 Tova Nieves R.N.NURSING PROGRESS NOTESReassurance given. Call light placed in reach. Bed placed in lowest position. Patient ready forevaluation. --14:57 09/17/19 Tova Nieves R.N.DISPOSITION / DISCHARGE Departure time: 15:13 09/17/2019. No learning barriers present. Discharge instructions provided and reviewed with the patient. Reviewed warnings. Reviewed medication(s). Treatments reviewed. Patient verbalized understanding. Written instructions provided in Cymraes. The patient was discharged by the physician. He was discharged home and accompanied by family. He left ambulatory and via private vehicle. Family member driving. --15:13 09/17/19 Jennifer Rueda R.N. 15:12 09/17/19. BP: deferred. HR: deferred. RR: deferred. O2 saturation: deferred. Temp: deferred. Pain level now: 0/10. --15:13 09/17/19 Jennifer Rueda R.N. 3 Clinical Report - Nurses [facility] Emergency Department [address] [place] [address] Phone #: ext- [phone] 09/17/2019 14:51 Patient: NIRMAL RAMAN Sex: M : 1985 Age: 33yLocked/Released at 09/17/2019 15:14 by Jennifer Rueda R.N. Name Value Range Interpretation Code Description Data Sherry rce(s) Supporting Document(s) ID Date Data Source [id number] 09/17/2019 03:07:00 PM EST [facility] 1 Clinical Report - Physicians/Mid Levels [facility] Emergency Department [address] [place] [address] Phone #: ext- [phone] 09/17/2019 14:51 Patient: NIRMAL RAMAN Sex: M : 1985 Age: 33y Arrived- By private vehicle. Historian- patient.HISTORY OF PRESENT ILLNESS Chief Complaint: HISTORY OF ASTHMA. This started many years ago and is still present. It has been intermittent. The dyspnea is described as moderate. No cough, sputum production, orthopnea or chest pain or discomfort. (Pt has hx of moderate persistent asthma. 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 He ran out of his inhaler [facility]. Would like refill. Denies fever and recent illness.). Asthma triggers: allergies, exercise and infections. Takes asthma medications (inhaled albuterol, inhaled long-acting beta agonist, inhaled steroid) Similar symptoms previously. Patient has had similar symptoms many times. Recent medical care: Not recently seen/assessed.REVIEW OF SYSTEMSNo sore throat, nasal di scharge, sinus drainage, fever or chills. No muscle aches, headache, palpitations,calf pain or nausea. No abdominal pain, diarrhea, black stools, difficulty with urination or excessiveurination. No skin rash, enlarged lymph nodes, pedal edema, vomiting or bloody stools. No joint pain.All other systems reviewed and are negative.PAST HISTORYSee nurses notes. Problems: Allergic Rhinitis. Sleep Apnea. Asthma. Additional Surgeries: no known surgeries. Medications: Advair HFA Inhalation. Claritin Oral. ZyrTEC Allergy Childrens Oral. Allergies: 2 Clinical Report - Physicians/Mid Levels [facility] Emergency Department [address] [place] [address] Phone #: ext- [phone] 09/17/2019 14:51 Patient: NIRMAL RAMAN Sex: M : 1985 Age: 33y No Known Drug Allergy.SOCIAL HISTORYNever smoker. Occasional alcohol use. No drug use. No recent travel.ADDITIONAL NOTESThe nursing notes have been reviewed.PHYSICAL EXAMVital Signs: 09/17/2019 14:52 BP: 146/95. MAP: 112. HR: 99. RR: 20. O2 saturation: 97%. Temp: 98.1 F.Pain level now: 0/10. Have been reviewed.Appearance: Alert. No acute distress.Eyes: Pupils equal, round and reactive to light. Eyes normal inspection.ENT: Ears normal. Nose normal. Pharynx normal. Uvula midline.Neck: Normal inspection. Neck supple. No meningeal signs, JVD or lymphadenopathy.CVS: Normal heart rate and rhythm. Heart sounds normal. No cardiac murmur or extra heart sounds.Respiratory: No respiratory distress. Breath sounds normal. No wheezes, rales or rhonchi.Skin: Skin warm and dry. Normal skin color. No rash. Normal skin turgor.Neuro: Oriented X 3. No alteration in mental status.PROGRESS AND PROCEDURESDisposition: Discharged home in good condition. Condition: good.CLINICAL IMPRESSION Moderate persistent asthma. No acute exacerbation or status asthmaticus.INSTRUCTIONS Prescription Medications: Proventil HFA 90 mcg/actuation aerosol inhaler Inhale 2 puff every four hours as needed -- and before exercise. Dispense 1 inhaler. Refills: 0. Substitution permitted. [facility] [id number] ; [place] [address]. . Follow- up: Return to the emergency department if persistent fever or shortness of breath. Follow up with your healthcare provider even if well. Call for the next available appointment. Reason for referral: evaluation and treatment. 3 Clinical Report - Physicians/Mid Levels [facility] Emergency Department [address] [place] [address] Phone #: ext- [phone] 09/17/2019 14:51 Patient: NIRMAL RAMAN Sex: M : 1985 Age: 33y(Electronically signed by Justin Nuñez M.D. 09/17/2019 16:03) Name Value Range Interpretation Code Description Data Sherry rce(s) Supporting Document(s) Procedure Social History Code Duration Value Status Description Data Source(s ) Smoking 07/30/2020 12:00:00 AM EST Non Smoker completed Non Smoke r [facility] ([facility]) Vital Signs ID Date Data Source UNK Name Value Range Interpretation Code Description Data Source(s) Body weight 105.235 kg 105.235 kg [facility] ([facility]) [place] body weight 160 [lb_av] 160 [facility]_av[facility] Body mass index (BMI) [Ratio] 34.3 kg/m2 34.3 k g/m2 [facility] ([facility]) Body weight 232.00 [lb_av] 232.00 [lb_av] [facility] in uniform Body height 69 [in_i] 69 [in_i] [facility] ([facility]) 5'9" Oxygen saturation in Arterial blood by Pulse oximetry 97 % 97 % [facility] ([facility]) Heart rate 107 /min 107 /min [facility] ([facility]) Diastolic blood pressure 90 mm[Hg] 90 mm[Hg] [facility] ([facility]) Systolic blood pressure 130 mm[Hg] 130 mm[Hg] [facility]ia [facility] ([facility]) Body weight 105.349 kg 105.349 kg [facility] ([facility]) [place] body weight 160 [lb_av] 160 [lb_av] [facility] T ([facility]) Body mass index (BMI) [Ratio] 34.3 kg/m2 34.3 k g/m2 [facility] ([facility]) Body weight 232.25 [lb_av] 232.25 [lb_av] [facility] T ([facility]) Body height 69 [in_i] 69 [in_i] [facility] ([facility]) 5'9" Body temperature 96.7 [degF] 96.7 [degF] [facility] ([facility]) Oxygen saturation in Arterial blood by Pulse oximetry 97 % 97 % [facility] ([facility]) Heart rate 91 /min 91 /min [facility] ([facility]) Diastolic blood pressure 92 mm[Hg] 92 mm[Hg] [facility] ([facility]) Systolic blood pressure 138 mm[Hg] 138 mm[Hg] [facility] ([facility]) Body weight 106.312 kg 106.312 kg [facility] ([facility]) Body mass index (BMI) [Ratio] 34.6 kg/m2 34.6 k g/m2 [facility] ([facility]) Body weight 234.38 [lb_av] 234.38 [lb_av] [facility] Body height 69 [in_i] 69 [in_i] [facility] ([facility]) 5'9" Body temperature 96.7 [degF] 96.7 [degF] [facility] ([facility]) Oxygen saturation in Arterial blood by Pulse oximetry 97 % 97 % [facility] ([facility]) Heart rate 86 /min 86 /min [facility] ([facility]) Diastolic blood pressure 84 mm[Hg] 84 mm[Hg] [facility] ([facility]) Systolic blood pressure 122 mm[Hg] 122 mm[Hg] [facility] ([facility]) Body weight 105.859 kg 105.859 kg [facility] ([facility]) Body mass index (BMI) [Ratio] 34.5 kg/m2 34.5 k g/m2 [facility] ([facility]) Body weight 233.38 [lb_av] 233.38 [lb_av] [facility] Body height 69 [in_i] 69 [in_i] [facility] ([facility]) 5'9" Body temperature 97.6 [degF] 97.6 [degF] [facility] ([facility]) Oxygen saturation in Arterial blood by Pulse oximetry 97 % 97 % [facility] ([facility]) Heart rate 82 /min 82 /min [facility] ([facility]) Diastolic blood pressure 90 mm[Hg] 90 mm[Hg] [facility] ([facility]) Systolic blood pressure 122 mm[Hg] 122 mm[Hg] [facility] ([facility]) Body weight 106.596 kg 106.596 kg [facility] ([facility]) Body mass index (BMI) [Ratio] 34.7 kg/m2 34.7 k g/m2 [facility] ([facility]) Body weight 235.00 [lb_av] 235.00 [lb_av] [facility] Body height 69 [in_i] 69 [in_i] [facility] ([facility]) 5'9" Oxygen saturation in Arterial blood by Pulse oximetry 98 % 98 % [facility] ([facility]) Heart rate 91 /min 91 /min [facility] ([facility]) Diastolic blood pressure 70 mm[Hg] 70 mm[Hg] [facility] ([facility]) Systolic blood pressure 120 mm[Hg] 120 mm[Hg] [facility] ([facility])
[2020-10-11 15:28] LABS: BASO % 0.1 % (0.0-1.0); HEMATOCRIT 46.9 % (42.0-52.0); HEMOGLOBIN 16.3 g/dl (13.5-17.5); LYMPH # 1.2 10^3/uL (1.5-5.0); LYMPH % 12.2 % (24.0-44.0); MEAN CORPUSCULAR HEMOGLOBIN 31.2 pg (27.0-33.0); MEAN CORPUSCULAR HGB CONC 34.8 g/dl (32.0-36.5); MEAN CORPUSCULAR VOLUME 89.7 fl (80.0-96.0); MONO # 0.8 10^3/uL (0.0-0.8); MONO % 7.6 % (0.0-5.0); NEUTROPHILS # 8.1 10^3/uL (1.5-8.5); NEUTROPHILS % 79.8 % (36.0-66.0); PLATELET COUNT, AUTOMATED 207 10^3/uL (150-450); RED BLOOD COUNT 5.23 10^6/uL (4.30-6.10); WHITE BLOOD COUNT 10.2 10^3/uL (4.0-10.0)
[2020-10-11 15:49] LABS: D-DIMER QUANT 801.65 ng/ml (<500)
[2020-10-11 15:59] LABS: ALBUMIN 3.3 GM/DL (3.2-5.2); ALT/SGPT 61 U/L (12-78); BILIRUBIN,TOTAL 0.5 MG/DL (0.2-1.0); BLOOD UREA NITROGEN 9 MG/DL (7-18); CALCIUM LEVEL 8.1 MG/DL (8.5-10.1); CARBON DIOXIDE LEVEL 24 MEQ/L (21-32); CHLORIDE LEVEL 108 MEQ/L (98-107); CREATININE FOR GFR 0.89 MG/DL (0.70-1.30); FERRITIN 1243 NG/ML (26-388); GLOMERULAR FILTRATION RATE > 60.0 (>60); GLUCOSE, FASTING 110 MG/DL (70-100); LDH LACTATE DEHYDROGENASE 383 U/L (87-241); POTASSIUM SERUM 3.9 MEQ/L (3.5-5.1); SODIUM LEVEL 139 MEQ/L (136-145); TROPONIN I < 0.02 NG/ML (< 0.10)
[2020-10-11] MEDS ORDERED: LEVALBUTEROL HFA 45MCG/ACT 15 GM INHALER INH PRN (16:30)
--- OUTSIDE RECORDS SUMMARY | 2020-10-11 16:34 | CCD ---
Author Author [facility] Organization [facility] Address Unknown Phone Unavailable Care Team Providers Care Mixing Supervisor Name Role Phone Tee PAC, Jovan Unavailable Unavailable [place] PAC, Jovan Unavailable Unavailable [place] PAC, Jovan Unavailable Unavailable Tee PAC, Jovan Unavailable Unavailable [place] PAC, Jovan Unavailable Unavailable Tee PAC, Jovan Unavailable Unavailable Tee PAC, Jovan Unavailable Unavailable [place] PAC, Jovan Unavailable Unavailable ESPINOZA NUÑEZ MD [...] ANDERSON MD Unavailable [phone] BLACK, ESPINOZA ANDEROSN MD Unavailable [phone] BLACK, ESPINOZA ANDERSON [...] Unavailable GOLDBERG, M ANGEL PA Unavailable Unavailable GOLDBREG, M ANGEL PA Unavailable Unavailable GOLDBERG, M [...] is protected by Article 27-F of the [facility] Public Health law. If you continue you may have access to information: Regarding HIV / AIDS; Provided by facilities licensed or operated by the [facility] Office of Mental Health; or Provided by the [facility] Office for People With Developmental Disabilities. If such information is present, then the following [facility] mandated warning applies: This information has been [...] law may result in a fine or snf sentence or both. A general authorization for the release of medical or other information is NOT sufficient authorization for further disc losure. Allergies and Adverse Reactions Type Description Substance Reaction Status Data Source(s ) Drug Allergy Drug Allergy NKDA [facility] ([facility], ) Encounters Encounter Providers Location Date Indications Data Source(s ) Emergency Attender: SUARAV SELLERSConsultant: MYCHAL HDEZ 10/03/2020 05:16:00 PM EST - 10/03/2020 08:01:[address] [facility] Patient discharged. Emergency Attender: RANDY TOBIAS MD 07/15 06:31:00 PM EDT - 07/15/2020 06:37:[address] [facility] Patient discharged. Outpatient Attender: Jovan BHATIA 05/23 09:08:59 AM EDT - 06/15/2020 05:30:[address] [facility] Patient discharged. Outpatient 05/24/2020 11:22:31 AM EDT - 020 05:30:[address] [facility] Patient discharged. Outpatient Attender: ANGEL Vega/Amorita/Mt/Rein dl 04/09/2020 03:30:00 PM EDT [facility] ([facility], ) Outpatient Attender: ANGEL Brownang/Amorita/Mt/Rein dl 02/08/2020 02:00:00 PM EDT [facility] ([facility], ) Outpatient Attender: ANGEL Brownang/Amorita/Mt/Rein dl 12/26/2019 03:30:00 PM EDT [facility] ([facility], ) Outpatient 10/18/2019 11:01:00 AM EST [facility] Outpatient Attender: ANGEL Vega/Amorita/Mt/Rein dl 10/13/2019 09:30:00 AM EST [facility] ([facility], ) Emergency Attender: SAURAV SELLERS 2019 07:59:00 PM EST - 10/06/2019 08:48:[address] [facility] Patient discharged. Emergency Attender: JUSTIN NUÑEZ MD 1 11/18/2018 03:07:00 PM EST - 09/17/2019 03:14:[address] [facility] Patient discharged. Medications Medication Brand Name Start Date Product Form Dose Route Admi nistrative Instructions Pharmacy Instructions Status Indications Reaction Description Data Source(s) 120 ACTUAT Fluticasone propionate 0.22 MG/ACTUAT Meter ed Dose Inhaler [Flovent] Flovent HFA 12/26/2019 12:00:00 AM EDT RESPIRATORY activ e [facility] ([facility], ) tiotropium 0.018 MG/ACTUAT Inhalant Powder [Spiriva] Spiriva Handihaler 10/13/2019 12:00:00 AM EST active [facility] ([facility], ) Insurance Providers Payer name Policy type / Coverage type Policy ID Covered constitution party ID Covered constitution party's relationship to rodriguez Policy Rodriguez Plan Information [facility] ACTIVE DUTY [id number] SP [id number] [facility] HUMAN - O/P [id number] 18 [id number] [facility] ACTIVE DUTY [id number] SP [id number] [employer] [facility] REG O [id number] S [id number] [facility] [id number] 18 [id number] [facility] ACTIVE DUTY [id number] SP [id number] Problems, Conditions, and Diagnoses Code Display Name Description Problem Type Effective Dates Data Source(s) [id number] Uncomplicated moderate persistent asthma Uncomplicated moderate persistent asthma Problem 02/08/2020 12:00:00 AM EDT MONICA ([facility], ) [id number] Invalid ICD10 Description Invalid ICD10 Description Di agnosis 10/03/2020 05:16:[address] [facility] J069 Acute upper respiratory infection, unspe cified Acute upper respiratory infection, unspecified Diagnosis 10/03/2020 05:16:00 PM [facility] R509 Fever, unspecified Fever, unspecified Diagnosis 05:16:[address] [facility] U19815 Unspecified asthma, uncomplicated Unspecified as thma, uncomplicated Diagnosis 07/15/2020 06:31:[address] [facility] Z760 Encounter for issue of repeat prescripti on Encounter for issue of repeat prescription Diagnosis 07/15/2020 06:31:[address] [facility] G4733 Obstructive sleep apnea (adult) (pediatr ic) Obstructive sleep apnea (adult) (pediatric) Diagnosis 06/14/2020 08:00:[address] [facility] R0683 Snoring Snoring Diagnosis 05/25/2020 08:30:[address] [facility] J4540 Moderate persistent asthma, uncomplicate d Moderate persistent asthma, uncomplicated Diagnosis 09/17/2019 03:07:[address] [facility] Surgeries/Procedures Procedure Description Date Indications Data Source(s) Spirometry 04/09/2020 12:00:00 AM EDT JESENIA ([facility], ) Spirometry 02/08/2020 12:00:00 AM EDT JESENIA ([facility], ) Spirometry 10/13/2019 12:00:00 AM RENÉ Gosia BA ([facility], ) Results ID Date Data Source [id number] 10/03/2020 05:16:[address] [facility] [address] [facility] Emergency Department [address] [place] [address] Phone #: ext- [phone] 10/03/2020 17:12 Patient: [...] Study: congestion, ? COVIDMEDICATION/IV/DRIP/FLUID ORDERS [address] [facility] Emergency Department [address] [place] [address] Phone #: ext- [phone] 10/03/2020 17:12 Patient: [...] rce(s) Supporting Document(s) ID Date Data Source [id number] 10/03/2020 05:16:[address] [facility] [address] [facility] Emergency Department [address] [place] [address] Phone #: [phone]- [phone] 10/03/2020 17:12 Patient: NIRMAL RAMAN Sex: M : 1985 Age: 34yWeight: 97.5 kgHeight/Length: 69 in.BMI: 31.8ALLERGIES: Iodinated Diagnostic AgentsThe patient's Home Medications are listed below:CONTINUE TAKING THE FOLLOWING MEDICATIONS: Advair Diskus Inhalation Albuterol Sulfate Inhalation Claritin Oral Flovent HFA Inhalat ion Nasal [place] ProAir HFA Inhalation Spiriva HandiHaler Inhalation ZyrTEC [...] 0. Substitution permitted. [address] [facility] Emergency Department [address] [place] [address] Phone #: ext- [phone] 10/03/2020 17:12 Patient: NIRMAL RAMAN Sex: M : 1985 Age: 34yPharmacy - [facility] - [address] [facility] ; [place] [address]. .IBU 800 mg tablet Take 1 tablet three times a day as needed for 7 days -- Dispense 21 tablet. Refills: 0.Substitution permitted.Pharmacy - [facility] - [address] [facility] ; [place] [address]. .Zofran 4 mg tablet Take 1 tablet three times a day for 3 days -- Dispense 9 tablet. Refills: 0.Substitution permitted.Pharmacy - [facility] - [id number] [facility] ; [place] [address]. . -- Justin Green P.A.-C Name Value Range Interpretation Code Description Data Sherry e(s) Supporting Document(s) ID Date Data Source [id number] 10/03/2020 05:16:00 PM [place] [address] [facility] Emergency Department [address] [place] [address] Phone #: ext- [phone] 10/03/2020 17:12 Patient: NIRMAL RAMAN Sex: M : 1985 Age: 34yWeight: 97.5 kgHeight/Length: 69 inBMI: 31.8ALLERGIES: Iodinated Diagnostic Agents Date/Time Medication Administered Medication OrderedGiven TYLENOL [PO] (APAP) Tylenol 1 g PO X1 dose: 1000 mg18:14 10/03/2020 Dose: 1000 mg Tablets PO (NOW x1)Veronica Cuello R.N.Given IBUPROFEN [PO] Ibuprofen 600 mg PO X1 dose: 75789:15 10/03/2020 Dose: 600 mg Tablets PO mg (NOW x1)Veronica Cuello R.N. Name Value Range Interpretation Code Description Data Sherry rce(s) Supporting Document(s) ID Date Data Source [id number] 10/03/2020 05:16:00 PM [place] [address] [facility] Emergency Department [address] [place] [address] Phone #: ext- [phone] 10/03/2020 17:12 Patient: NIRMAL RAMAN Sex: M [...] Drink plenty of fluids. No dietary restrictions. ([facility]: [phone]. Please contact them in approx 3-4 days [...] Inhalation. Claritin Oral. Flovent HFA Inhalation. Nasal [place]*. ProAir HFA Inhalation. Spiriva HandiHaler Inhalation. ZyrTEC Allergy Oral. Prescription Medications: acetaminophen 500 mg capsule Take 2 capsule three times a day for 7 days -- Dispense 42 capsule. Refills: 0. Substitution permitted. Pharmacy - [facility] - [id number] [facility] ; [place] [address]. . [address] [facility] Emergency Department [address] [place] [address] Phone #: ext- [phone] 10/03/2020 17:12 Patient: NIRMAL RAMAN Sex: M : 1985 Age: 34y IBU 800 mg tablet Take 1 tablet three times a day as needed for 7 days -- Dispense 21 tablet. Refills: 0. Substitution permitted. Pharmacy - [facility] ; [place] [address]. . Zofran 4 mg tablet Take 1 tablet three times a day for 3 days -- Dispense 9 tablet. Refills: 0. Substitution permitted. Pharmacy - [facility] ; [place] [address]. . Follow-up: Return to the emergency department [...] was first found in people in [facility], in late 2019. In 2020,several cases of [...] virus. Symptoms can include: [address] [facility] Emergency Department [address] [place] [address] Phone #: ext- [phone] 10/03/2020 17:12 Patient: [...] with a COVID-19 outbreak [address] [facility] Emergency Department [address] [place] [address] Phone #: ext- [phone] 10/03/2020 17:12 Patient: [...] hands often, or use an alcohol-based hand utilization supervisor.The CDC advises that you shouldn't wear a face mask if you are not sick.To protect yourself from COVID-19: Wash your hands often with soap and clean, running water for at least 20 seconds. If you don't have access to soap and water, use an alcohol-based hand utilization supervisor often. Make [address] [facility] Emergency Department [address] [place] [address] Phone #: ext- [phone] 10/03/2020 17:12 Patient: NIRMAL RAMAN Sex: M [...] hospital. Wait for instructions. [address] [facility] Emergency Department [address] [place] [address] Phone #: ena- [phone] 10/03/2020 17:12 Patient: NIRMAL RAMAN Sex: M [...] from the sick person. [address] [facility] Emergency Department [address] [place] [address] Phone #: [phone]- [phone] 10/03/2020 17:12 Patient: NIRMAL RAMAN Sex: M : 1985 Age: 34yWhen to call your healthcare providerCall your healthcare provider: If you've recently traveled and have symptoms If you have been diagnosed with COVID-19 and your symptoms are worse 1999- 2019 [employer]. [address] [place] [address]. All rights reserved. This information is not intended as asubstitute for professional medical care. Always follow your healthcare professional's instructions.Influenza (Adult) [address] [facility] Emergency Department [address] [place] [address] Phone #: ext- [phone] 10/03/2020 17:12 Patient: [...] include extreme tiredness (wanting to stay in [address] [place] [address] Emergency Department [address] [place] [address] Phone #: [phone] ext- [phone] 10/03/2020 17:12 Patient: NIRMAL RAMAN Sex: M [...] loosen secretions in your nose and lungs. Bdmx-ktz-mjhtakj cold medicines will not make the flu [...] wheezing, or trouble breathing [address] [facility] Emergency Department [address] [place] [address] Phone #: ext- [phone] 10/03/2020 17:12 Patient: NIRMAL RAMAN Sex: M [...] system. These include steroids and certainanti-inflammatory medicines. [id number] [employer]. [address] [place] [address]. All rights reserved. This information is not [...] be monitored by staff fromyour local or formerly [facility] health department. You should follow the prevention steps below until a healthcare provider orlocal or [facility] department says you can return to your [...] with pets and wear a facemask. See https://www.cdc.gov/coronavirus/2019-ncov/faq.html#8630-zDzU-jnt-animals for more information. [address] [facility] Emergency Department [address] [place] [address] Phone #: ext- [phone] 10/03/2020 17:12 Patient: [...] available, clean your hands with analcohol-based hand utilization supervisor that contains at least 60% alcohol.Clean your [...] bedding with other people or pets in [facility]. After using these items, they should [...] ventilation during use of the product.Monitor your symptomshttps://www.Planspotystem.com/index.php Seek prompt medical attention if your illness [...] isolation precautions should be made on a irum-xf-zawv basis, inconsultation with healthcareproviders and state and local health departments.Contacts eMar. [address] [facility] Emergency Department [address] [place] [address] Phone #: ext- [phone] 10/03/2020 17:12 Patient: NIRMAL RAMAN Sex: M [...] and bathroom, if available. [address] [facility] Emergency Department [address] [place] [address] Phone #: ext- [phone] 10/03/2020 17:12 Patient: [...] 20 seconds or use an alcohol-based hand utilization supervisor that contains 60 to 95% alcohol, covering [...] with soap and water or alcohol-based hand utilization supervisor. Next, remove and dispose of facemask, and immediately clean your hands again with soap and water or alcohol-based hand utilization supervisor. Avoid sharing household items with the patient. [...] soap and water or an alcohol-based hand utilization supervisor} immediately after removing your gloves. https://www.SemaConnect/index.php Read and follow directions on labels of [...] soap and water or an alcohol-based hand utilization supervisor} immediately after hand ling these items. Soap and water should be used preferentially if hands are visibly dirty. Discuss any additional questions with your state or local health department or healthcare provider. Check available hours when contacting your local health department.Contacts [employer] information [address] [facility] Emergency Department [address] [place] [address] Phone #: ext- [phone] 10/03/2020 17:12 Patient: [...] Green P.A.-C 10/04/2020 11:27) [address] [facility] Radha rgency Department [address] [place] [address] Phone #: ext- [phone] 10/03/2020 17:12 Patient: NIRMAL RAMAN Sex: M : 1985 Age: 34y Name Value Range Interpretation Code Description Data Sherry rce(s) Supporting Document(s) ID Date Data Source [id number] 10/03/2020 05:16:[address] [facility] 1 Clinical Report - Nurses [facility] Emergency Department [address] [place] [address] Phone #: ext- [phone] 10/03/2020 17:12 Patient: [...] nausea, weakness and sinuspain. 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 --17:19 10/03/20 [...] Oral. --17:16 10/03/20 Veronica Cuello R.N. Nasal [place]. --17:16 10/03/20 Veronica Cuello R.N.AllergiesIodinated Diagnostic Agents. [...] of tuberculosis, 2 Clinical Report - Nurses [facility] Emergency Department [address] [place] [address] Phone #: ext- [phone] 10/03/2020 17:12 Patient: NIRMAL RAMAN Sex: M [...] Cuello R.N. 3 Clinical Report - Nurses [facility] Emergency Department [address] [place] [address] Phone #: ext- [phone] 10/03/2020 17:12 Patient: [...] Patient verbalized understanding. Written instructions provided in Tuvaluan. The patient was discharged by the physician campus administrative assistant. He was discharged home. He left [...] rce(s) Supporting Document(s) ID Date Data Source [id number] 10/03/2020 05:16:[address] [facility] 1 Clinical Report - Physicians/Mid Levels [facility] Emergency Department [address] [place] [address] Phone #: ext- [phone] 10/03/2020 17:12 Patient: [...] Immunizations: Immunization status is up-to-date. Medications: Nasal [place]. Advair Diskus Inhalation. Albuterol Sulfate Inhalation. 2 Clinical Report - Physicians/Mid Levels [facility] Emergency Department [address] [place] [address] Phone #: ext- [phone] 10/03/2020 17:12 Patient: NIRMAL RAMAN Sex: M [...] and hypertrophy (Pt sts chronic; contributes to AYUSH). Moistmucous membranes. Uvula midline. Voice normal.Ear (right): [...] radiologist. 3 Clinical Report - Physicians/Mid Levels [facility] Emergency Department [address] [place] [address] Phone #: ext- [phone] 10/03/2020 17:12 Patient: NIRMAL RAMAN Sex: M : 1985 Age: 34y Laboratory Tests: Chest 2 View: (LAY: 10/03/2020 18:03) ( [facility] 10/03/2020 18:29) In Progress CHEST 2 VIEWS Reason(s): congestion, ? COVID TRANSPORTATION: WC IV? O2? Oxygen?(No) Room: ED Influenza Nasal A B: (LAY: 10/03/2020 17:35) ( [facility] 10/03/2020 18:56) Final results Test Result Flag Units (Reference) INFLUENZA A NEGATIVE (NORMAL: NEGAT INFLUENZA B POSITIVE A (NORMAL: NEGAT INFLUENZA A REENTER NEGATIVE (NORMAL: NEGAT INFLUENZA B REENTER POSITIVE A (NORMAL: NEGAT PROCEDURAL CONTROL VALID KIT LOT # _[id number] 10/03/20.1854.DW . KIT EXP DATE _55-12-92 10/03/20.DW .The Influenza A utilizing an isothermal [...] PROCEDURAL CONTROL VALID ){ KIT LOT # [id number] ){ KIT EXP DATE 12-31-21 )The Strep [...] condition. 4 Clinical Report - Physicians/Mid Levels [facility] Emergency Department [address] [place] [address] Phone #: ext- [phone] 10/03/2020 17:12 Patient: NIRMAL RAMAN Sex: M [...] Drink plenty of fluids. No dietary restrictions. ([facility]: [phone]. Please contact them in approx 3-4 days [...] Inhalation. 5 Clinical Report - Physicians/Mid Levels [facility] Emergency Department [address] [place] [address] Phone #: ext- [phone] 10/03/2020 17:12 Patient: NIRMAL RAMAN Sex: M : 1985 Age: 34y Claritin Oral. Flovent HFA Inhalation. Nasal [place]*. ProAir HFA Inhalation. Spiriva HandiHaler Inhalation. ZyrTEC Allergy Oral. Prescription Medications: acetaminophen 500 mg capsule Take 2 capsule three times a day for 7 days -- Dispense 42 capsule. Refills: 0. Substitution permitted. Pharmacy - [address] ; [place] [address]. . IBU 800 mg tablet Take 1 tablet three times a day as needed for 7 days -- Dispense 21 tablet. Refills: 0. Substitution permitted. Pharmacy - [address] ; [place] [address]. . Zofran 4 mg tablet Take 1 tablet three times a day for 3 days -- Dispense 9 tablet. Refills: 0. Substitution permitted. Pharmacy - [address] ; [place] [address]. . Follow-up: Return to the emergency department as needed. Follow up with your healthcare provider in about two days if not better. Call for an appointment. Understanding of the discharge instructions verbalized by patient.(Electronically signed by Justin Green P.A.-C 10/04/2020 11:27) Name Value Range Interpretation Code Description Data Sherry rce(s) Supporting Document(s) ID Date Data Source [id number] 10/03/2020 05:16:00 PM [facility] NIRMAL Martinez VisitID: [id number] Date: 18:27Pt COVID test positive, pt was called and made aware at 1709,Instructed on general hygiene, isolationand that public health will be in contact; Instructed when to come back to ER or be seen, and ptverbalized understanding. Attempted to call into [facility] however no answer, did fax to them.(Electronically signed by Taylor Ace R.N. - 10/06/2020 18:27) Name Value Range Interpretation Code Description Data Sherry rce(s) Supporting Document(s) ID Date Data Source [id number] 10/05/2020 09:50:00 AM EST [facility] [address] [place] [address] PHONE: [phone] FAX: [phone] Name .................. : DANISHA Gandhi Acct Number.................. : [id number] ROOM. ................. : VT-[id number] MR Number ................... : [id number] Stay type ............. : E/R Discharge Date......... ... : 10/03/20 Admit Date ......... : 10/03/20 Admit Phys .................... : VERITO NAPOLES Date of ....... : 1985 Family Phys ................... : UNKNOWN Phone . ................. : [phone] Age ................................ : 34 Film# .................. .:[id number] Sex ................................. : M Unsigned transcriptions are preliminary reports and do not represent a medical or legal document CHEST 2 VIEWS [id number] COMPLETE:10/03/20 18:29 CARL 2167 Reason(s): congestion, ? [...] rce(s) Supporting Document(s) ID Date Data Source [id number] 10/03/2020 05:35:00 PM EST [facility] Name Value Range Interpretation Code Description Data Sherry rce(s) Supporting Document(s) SARS coronavirus 2 RNA Detected [facility] This lab was ordered by [facility] and reported by [employer]. ID Date Data Source [id number] 10/06/2020 04:14:[address] [facility] Name Value Range Interpretation Code Description Data [facility] rce(s) Supporting Document(s) SARS-CoV-2, NISREEN Detected Not Detected A [facility] This nucleic acid amplification test was developed and its performancecharacteristics determined by [facility]. Nucleic acidamplification tests include PCR and [...] assay. ORDER COVID [address] [facility] ID Date Data Source [id number] 10/03/2020 06:55:[address] [facility] Name Value Range Interpretation Code Description Data Sherry rce(s) Supporting Document(s) Influenza virus A Ag [Presence] in Nasopharynx by Immuno[facility] y NEGATIVE NORMAL: NEGATIVE [facility] Influenza virus B Ag [Presence] in Nasopharynx by Immunoassa y POSITIVE NORMAL: NEGATIVE A [facility] NEGATIVEPOSITIVE PROCEDURAL CO NTROL VALID KIT LOT # _[id number] 10/03/20.DW . KIT EXP DATE _97-34-87 10/03/20.DW .The Influenza A & B assay is a rapid molecular in vitro diagnostic testutilizing an isothermal nucleic acid amplification technology for thequalitative detection of influenza A and B viral RNA.Negative results do not preclude influenza virus infection and should not beused as the sole basis for diagnosis, treatment or other patient managementdecisions. ID Date Data Source [id number] 10/03/2020 06:32:[address] [facility] Name Value Range Interpretation Code Description Data Sherry rce(s) Supporting Document(s) RAPID STREP NEGATIVE NORMAL: NEGATIVE [facility] RAPID STREP REENTER NEGATIVE NORMAL: NEGATIVE [facility] { PROCEDURAL CONTROL VALID ){ KIT LOT # [id number] ){ KIT EXP DATE 12-31-21 )The Strep [...] basis for treatment. ID Date Data Source [id number] 07/15/2020 06:31:[address] [facility] [address] [facility] Emergency Department [address] [place] [address] Phone #: ext- [phone] 07/15/2020 18:21 Patient: [...] rce(s) Supporting Document(s) ID Date Data Source [id number] 07/15/2020 06:31:[address] [facility] [address] [facility] Emergency Department [address] [place] [address] Phone #: ork- [phone] 07/15/2020 18:21 Patient: NIRMAL RAMAN Sex: M [...] Dispense 8.5gram. Refills: 3. Substitution permitted.Pharmacy - [address] ; [place] [address]. . -- NENO Baum Name Value Range Interpretation Code Description Data Sherry rce(s) Supporting Document(s) ID Date Data Source [id number] 07/15/2020 06:31:[address] [facility] [address] [facility] Emergency Department [address] [place] [address] Phone #: ext- [phone] 07/15/2020 18:21 Patient: NIRMAL RAMAN Sex: M : 1985 Age: 34yWeight: 97.5 kgHeight/Length: 68 inBMI: 32.7ALLERGIES: Seafood, Iodinated Diagnostic Agents Date/Time Medication Administered Medication OrderedGiven ALBUTEROL [MDI] Albuterol MDI 2 puff (NOW x1)18:32 07/15/2020 Dose: 2 puff MDI/Aerosol InhalationTaylor Ace R.N. Name Value Range Interpretation Code Description Data Sherry rce(s) Supporting Document(s) ID Date Data Source [id number] 07/15/2020 06:31:[address] [facility] [address] [facility] Emergency Department [address] [place] [address] Phone #: ext- [phone] 07/15/2020 18:21 Patient: NIRMAL RAMAN Sex: M [...] Refills: 3. Substitution permitted.Pharmacy - [facility] [address] [facility] ; [place] [address]. .Follow-up:Follow up with your doctor. Call for the next available appointment. Reason for referral: evaluation andtreatment. Summary of care provided to patient.Understanding of the discharge instructions verbalized by patient.(Electronically signed by NENO Baum 07/15/2020 21:10) Name Value Range Interpretation Code Description Data Sherry rce(s) Supporting Document(s) ID Date Data Source [id number] 07/15/2020 06:31:[address] [facility] 1 Clinical Report - Nurses [facility] Emergency Department [address] [place] [address] Phone #: ext- [phone] 07/15/2020 18:21 Patient: NIRMAL RAMAN Sex: M : 1985 Age: 34yTRIAGEArrived by private vehicle. Historian: patient. Unaccompanied.Triage time: late entry - 18:07/15/2020. Acuity: LEVEL 5.Chief Complaint: PRESCRIPTION REFILL REQUEST Proair, BID-6x per day.Alert. No acute distress.This started today. 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 [...] Chandler, 1807/15/20 2 Clinical Report - Nurses [facility] Emergency Department [address] [place] [address] Phone #: ext- [phone] 07/15/2020 18:21 Patient: [...] Farias R.N. 3 Clinical Report - Nurses [facility] Emergency Department [address] [place] [address] Phone #: ext- [phone] 07/15/2020 18:21 Patient: [...] Patient verbalized understanding. Written instructions provided in Tuvaluan. The patient was discharged by the physician campus administrative assistant. He was discharged home and unaccompanied [...] rce(s) Supporting Document(s) ID Date Data Source [id number] 07/15/2020 06:31:[address] [facility] 1 Clinical Report - Physicians/Mid Levels [facility] Emergency Department [address] [place] [address] Phone #: ext- [phone] 07/15/2020 18:21 Patient: [...] distress. 2 Clinical Report - Physicians/Mid Levels [facility] Emergency Department [address] [place] [address] Phone #: [phone] ext- [phone] 07/15/2020 18:21 Patient: NIRMAL RAMAN Sex: M [...] with PCM and [facility]twill see [facility] at [facility]). Patient counseled in person regarding the [...] permitted. 3 Clinical Report - Physicians/Mid Levels [facility] Emergency Department [address] [place] [address] Phone #: ext- [phone] 07/15/2020 18:21 [id number] Sex: M : 1985 Age: 34y Pharmacy - [facility] - [address] ; [place] [address]. . Follow-up: Follow up with your doctor. Call for the next available appointment. Reason for referral: evaluation and treatment. Summary of care provided to patient. Understanding of the discharge instructions verbalized by patient.(Electronically signed by NENO Baum 07/15/2020 21:10) Name Value Range Interpretation Code Description Data Sherry rce(s) Supporting Document(s) ID Date Data Source [id number] 04/09/2020 03:18:00 PM EDT [facility] ([facility] ) Name Value Range Interpretation Code Description Data Sherry rce(s) Supporting Document(s) PDFReport Laboratory test result [facility] ([facility], ) FVC-Pre 4.90 L [facility] ([facility]) FVC-Pred 5.26 L [facility] ([facility]) Fev1-Pred 4.27 L [facility] ([facility]) FVC-LLN 4.35 L [facility] ([facility]) FVC-%Pred-Pre 93 L [facility] ([facility]) Fev1-LLN 3.50 L [facility] ([facility]) Fev1-Pre 3.42 L [facility] ([facility]) Fev1-%Pred-Pre 80 L [facility] ([facility]) Fev6-%Pred-Pre 93 L [facility] ([facility]) Fev6-LLN 4.29 L [facility] ([facility]) Fev6-Pred 5.18 L [facility] ([facility]) Fev6-Pre 4.84 L [facility] ([facility]) Zic9vkv-Pthm 81 % [facility] ([facility]) Dyg4cmw-%Pred-Pre 85 % [facility] ([facility]) Lqp6lej-Awd 70 % [facility] ([facility]) Stx5fvl-Iezb 98 % [facility] ([facility]) Iss2jaj-JKT 72 % [facility] ([facility]) Dvw4rox-Qjt 99 % [facility] ([facility]) Tmp7yjv-%Pred-Pre 100 % [facility] ([facility]) FEFMax-Pre 7.69 L/E/sec [facility] ([facility]) FEFMax-Pred 10.03 L/E/sec [facility] ([facility]) FEFMax-%Pred-Pre 76 L/E/sec [facility] ([facility]) Uck4199-%Pred-Pre 56 L/E/sec [facility] ([facility]) Bdj6391-Tuku 4.23 L/E/sec [facility] ([facility]) Fsv3834-Ksl 2.38 L/E/sec [facility] ([facility]) FEFMax-LLN 7.78 L/E/sec [facility] ([facility]) Hjr9704-ZLU 2.67 L/E/sec [facility] ([facility]) Kwk6zpd6-Cclv 83 % [facility] ([facility]) ExpTime-Pre 7.52 sec [facility] ([facility]) Hrf4xpj0-%Pred-Pre 85 % [facility] ([facility]) Nwr3vnw2-Riq 71 % [facility] ([facility]) Wcy7iaj9-FED 74 % [facility] ([facility]) ID Date Data Source [id number] 02/08/2020 10:03:00 AM EDT [facility] ([facility]) Name Value Range Interpretation Code Description Data Sherry rce(s) Supporting Document(s) PDFReport Laboratory test result [facility] ([facility]) FVC-Pred 5.26 L [facility] ([facility]) FVC-Pre 4.93 L [facility] ([facility], ) FVC-LLN 4.35 L [facility] ([facility], ) FVC-%Pred-Pre 93 L [facility] ([facility], ) Fev1-Pre 3.32 L [facility] ([facility], ) Fev1-Pred 4.27 L [facility] ([facility], ) Fev1-%Pred-Pre 77 L [facility] ([facility], ) Fev6-Pred 5.18 L [facility] ([facility], ) Fev1-LLN 3.50 L [facility] ([facility], ) Fev6-Pre 4.92 L [facility] ([facility], ) Fev6-%Pred-Pre 95 L [facility] ([facility], ) Fev6-LLN 4.29 L [facility] ([facility], ) Hdi0bab-Zdgz 81 % [facility] ([facility], ) Siz3szc-Fvl 67 % [facility] ([facility]) Lwp9oys-%Pred-Pre 82 % [facility] ([facility]) Cwe6kki-HAM 72 % [facility] ([facility]) Ajx1qbk-%Pred-Pre 101 % [facility] ([facility]) Tpn0vhw-Bsty 98 % [facility] ([facility], ) Eob9pzp-Epp 100 % [facility] ([facility]) FEFMax-Pred 10.03 L/E/sec [facility] ([facility]) FEFMax-Pre 8.17 L/E/sec [facility] ([facility]) FEFMax-%Pred-Pre 81 L/E/sec [facility] ([facility]) Bfc2451-Sfpq 4.23 L/E/sec [facility] ([facility]) FEFMax-LLN 7.78 L/E/sec [facility] ([facility]) Qzs4620-Mcw 2.24 L/E/sec [facility] ([facility]) Ygj6000-%Pred-Pre 53 L/E/sec [facility] ([facility]) Chh5752-MRI 2.67 L/E/sec [facility] ([facility]) ExpTime-Pre 6.26 sec [facility] ([facility]) Hzy9amy6-Cvgd 83 % [facility] ([facility]) Bwe0wsg0-Gbl 67 % [facility] ([facility]) Zup2mbi5-CTN 74 % [facility] ([facility]) Cip0mpz6-%Pred-Pre 81 % [facility] ([facility]) ID Date Data Source [id number] 10/13/2019 11:33:00 AM EST [facility] ([facility]) Name Value Range Interpretation Code Description Data Sherry rce(s) Supporting Document(s) S441-DiL D pteronyssinus 5.45 kU/L Abnormal (applie s to non-numeric results) [facility] ([facility]) Class Description Laboratory test result Normal (applies to non-numeric results) [facility] ([facility]) <content>.</content>
<content>Levels of Specific IgE Class Description of Class</content>
<content> ----- </content>
<content>< 0.10 0 Negative</content>
<content>0.10 - 0.31 0/I Equivocal/Low</content>
<content>0.32 - 0.55 I Low</content>
<content>0.56 - 1.40 II Moderate</content>
<content>1.41 - 3.90 III High</content>
<content>3.91 - 19.00 IV Very High</content>
<content>19.01 - 100.00 V Very High</content>
<content>>100.00 Very High</content>
<content></content> Z952-SwT Dog Dander 8.29 kU/L Abnormal (applies to non-nu meric results) [facility] ([facility], ) R391-ArN Cat Epith/Dander 17.50 kU/L Abnorm al (applies to non-numeric results) [facility] ([facility], ) I587-TiG D farinae Mite 4.65 kU/L Abnormal (applies to no n-numeric results) [facility] ([facility], ) J329-LxT [place] 3.51 kU/L Abno rmal (applies to non-numeric results) [facility] ([facility], ) T041-LfI [place] Grass 1.13 kU/L Abnormal (applies to non-n umeric results) [facility] ([facility], ) F234-ZyN [place] Grass 1.58 kU/L Abnormal (applies to non -numeric results) [facility] ([facility], ) J365-TuN Cockroach, Albanian 2.89 kU/L Abn ormal (applies to non-numeric results) [facility] ([facility], ) J484-LzU Penicillium chrysogen Laboratory test result Normal (applies to non- numeric results) [facility] ([facility], ) M003 IgE Aspergillus fumigatu Laboratory test result Normal (applies to non- numeric results) [facility] ([facility], ) M002 IgE Cladosporium herbaru Laboratory test result Normal (applies to non- numeric results) [facility] ([facility], ) S752-EfS Stemphylium Herbarum 0.16 kU/L Ab normal (applies to non-numeric results) [facility] ([facility], ) B092-NtX Alternaria alternata Laboratory test result Normal (applies to non- numeric results) [facility] ([facility], ) E151-UyY Mucor racemosus Laboratory test result Normal (applies to non-numeric results) [facility] ([facility], ) S752-PxP Elm, Albanian 0.11 kU/L Abnormal (applies to non -numeric results) [facility] ([facility], ) T171-ShU [place], White 2.79 kU/L Abnormal (applies to non-nu meric results) [facility] ([facility], ) E876-EqV Common Silver Birch 7.80 kU/L Abn ormal (applies to non-numeric results) [facility] ([facility], ) S415-LwO Hazelnut Tree 4.78 kU/L Abnormal (applies to non -numeric results) [facility] ([facility], ) L711-NlU Ezekiel, White 0.47 kU/L Abnormal (applies to non-nu meric results) [facility] ([facility], ) J554-WbS [place], White 1.13 kU/L Abnormal (applies to no n-numeric results) [facility] ([facility], ) R209-ArB Maple/[place]au 0.45 kU/L Abnormal (applie s to non-numeric results) [facility] ([facility], ) M502-NhY [place], Mountain 4.89 kU/L Abnormal (applie s to non-numeric results) [facility] ([facility], ) E197-YxY Ragweed, Short 5.27 kU/L Abnormal (applies to no n-numeric results) [facility] ([facility], ) K277-FlG White [place] Laboratory test result N ormal (applies to non-numeric results) [facility] ([facility], ) Q254-YmI Plantain, Tuvaluan 0.13 kU/L Abnor mal (applies to non-numeric results) [facility] ([facility], ) H428-DqJ Pigweed, Rough Laboratory test result N ormal (applies to non-numeric results) [facility] ([facility], ) C137-OlU Mugwort 0.18 kU/L Abnormal (applies to non-numer ic results) [facility] ([facility], ) X929-FzX Sheep Selman 0.10 kU/L Abnormal (applies to non- numeric results) [facility] ([facility], ) D180-ScH Nettle 0.13 kU/L Abnormal (applies to non-numeri c results) [facility] ([facility]) Performed at: [facility] [address] [id number] Parts Specialist: Jaime Jackson MD, Phone: [phone] ID Date Data Source [id number] 10/13/2019 11:33:00 AM EST [facility] ([facility]) Name Value Range Interpretation Code Description Data Sherry rce(s) Supporting Document(s) IgE [Mass/volume] in Serum 247.0 IU/ml Above high normal [facility] ([facility]) ID Date Data Source [id number] 10/13/2019 11:33:00 AM EST [facility] ([facility]) Name Value Range Interpretation Code Description Data Sherry rce(s) Supporting Document(s) Red Blood Count 5.49 10 4.30-6.10 Normal (applies to non-numeric results) [facility] ([facility]) Hemoglobin 17.1 g/dL 13.5-17.5 Normal (applies to non-numeric resul ts) [facility]) White Blood Count 7.9 10 4.0-10.0 Normal (applies to non-numeri c results) [facility] ([facility]) Mean Corpuscular Hemoglobin 31.1 pg 27.0-33.0 Norm al (applies to non-numeric results) [facility] ([facility]) Hematocrit 51.2 % 42.0-52.0 Normal (applies to non-numeric resul ts) [facility]) Mean Corpuscular Volume 93.3 fl 80.0-96.0 Normal ( applies to non-numeric results) [facility]) Red Cell Distribution Width 12.0 % 11.5-14.5 Norm al (applies to non-numeric results) [facility]) Mean Corpuscular HGB Conc 33.4 g/dL 32.0-36.5 Normal (applies to non-numeric results) [facility]) Platelet Count, Automated 251 10 150-450 Normal (applies to non-numeric results) [facility]) Neutrophils % 63.2 % 36.0-66.0 Normal (applies to non-numeric re sults) [facility] ([facility]) Lymph % 29.3 % 24.0-44.0 Normal (applies to non-numeric resul ts) [facility] ([facility]) Eos % 1.1 % 0.0-3.0 Normal (applies to non-numeric resul ts) [facility] ([facility]) [place] % 5.6 % 0.0-5.0 Above high normal [facility] ([facility]) Baso % 0.4 % 0.0-1.0 Normal (applies to non-numeric resul ts) [facility] ([facility]) Nucleated Red Blood Cell % 0.0 % 0-0 Normal (applies to n on-numeric results) [facility] ([facility]) Immature Granulocyte % 0.4 % 0-3.0 Normal (applies to non-n umeric results) [facility] ([facility]) [place] # 0.4 10 0.0-0.8 Normal (applies to non-numeric resul ts) [facility] ([facility]) Neutrophils # 5.0 10 1.5-8.5 Normal (applies to non-numeric re sults) [facility] ([facility]) Lymph # 2.3 10 1.5-5.0 Normal (applies to non-numeric resul ts) [facility] ([facility]) Eos # 0.1 10 0.0-0.5 Normal (applies to non-numeric resul ts) [facility] ([facility]) Baso # 0.0 10 0.0-0.2 Normal (applies to non-numeric resul ts) [facility] ([facility]) ID Date Data Source [id number] 10/06/2019 07:59:[address] [facility] [address] [facility] Emergency Department [address] [place] [address] Phone #: ext- [phone] 10/06/2019 19:33 Patient: [...] rce(s) Supporting Document(s) ID Date Data Source [id number] 10/06/2019 07:59:[address] [facility] [address] [facility] Emergency Department [address] [place] [address] Phone #: ext- [phone] 10/06/2019 19:33 Patient: [...] Name Value Range Interpretation Code Description Data [facility]) Supporting Document(s) ID Date Data Source [id number] 10/06/2019 07:59:[address] [facility] [address] [facility] Emergency Department [address] [place] [address] Phone #: ext- [phone] 10/06/2019 19:33 Patient: NIRMAL RAMAN Sex: M : 1985 Age: 33yWeight: 97.5 kgHeight/Length: 69 inBMI: 31.8ALLERGIES: Iodine, Seafood Date/Time Medication Administered Medication OrderedGiven ALBUTEROL [MDI] Albuterol MDI 2 puff20:46 10/06/2019 Dose: 1 puff MDI/Aerosol InhalationZeeshan Domínguez R.N. Name Value Range Interpretation Code Description Data [facility]) Supporting Document(s) ID Date Data Source [id number] 10/06/2019 07:59:[address] [facility] [address] [facility] Emergency Department [address] [place] [address] Phone #: ext- [phone] 10/06/2019 19:33 Patient: [...] to plan of care. [address] [facility] Emergency Department [address] [place] [address] Phone #: sca- [phone] 10/06/2019 19:33 Patient: NIRMAL RAMAN Sex: M : 1985 Age: 33y(Electronically signed by Saurav Sellers M.D. 10/06/2019 22:00) Name Value Range Interpretation Code Description Data Sherry rce(s) Supporting Document(s) ID Date Data Source [id number] 10/06/2019 07:59:[address] [facility] 1 Clinical Report - Nurses [facility] Emergency Department [address] [place] [address] Phone #: ext- [phone] 10/06/2019 19:33 Patient: [...] field and was unable to get to [place] in time to refill. Pt states he loses itoften because he always carries it on him. 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 Epi pen. --19:36 10/06/19 Taylor Ace R.N.AllergiesSeafood. --19:36 10/06/19 Taylor Ace R.N.Iodine. --19:36 10/06/19 Taylor Ace R.N.Medication/allergy information source: the patient. --19:39 10/06/19 Taylor Ace R.N.ADDITIONAL SURGERIES:Dental Surgery. --19:36 10/06/19 Taylor Ace R.N. 2 Clinical Report - Nurses [facility] Emergency Department [address] [place] [address] Phone #: ext- [phone] 10/06/2019 19:33 Patient: [...] Ace R.N. 3 Clinical Report - Nurses [facility] Emergency Department [address] [place] [address] Phone #: ext- [phone] 10/06/2019 19:33 [id number] Sex: M : 1985 Age: 33y 20:46 10/06/2019 Albuterol Inhalation MDI/Aerosol 1 puff given. Given by the nurse. Allergies verified and confirmed 5 rights. Information reviewed with patient. --20:46 10/06/19 Zeeshan Domínguez R.N. ( Pt asking for inhaler to go, "[facility]" Pt informed that he should make appt ahead of time and not wait until inhaler runs out"). --20:47 10/06/19 Zeeshan Domínguez R.N. 20:47 10/06/19. Pain level now 0/10. --20:47 10/06/19 Zeeshan Domínguez R.N.DISPOSITION / DISCHARGE 20:39 10/06/19. BP: 144/96. MAP: 112. HR: 105. RR: 18. O2 saturation: 96%. Temp: 98.1 F. --20:40 10/06/19 [place] assistant operator, Sherly, Tech1 Condition at departure: unchanged. Discharge instructions provided and reviewed with the patient. Reviewed medication(s) information. Reviewed referral to a primary care physician. Patient verbalized understanding. Written instructions provided in Tuvaluan. The patient was discharged by the nurse practitioner. He was discharged home. He left ambulatory and via private vehicle. Patient driving. --20:48 10/06/19 Zeeshan Domínguez R.N.Locked/Released at 10/06/2019 20:48 by Zeeshan Domínguez R.N. Name Value Range Interpretation Code Description Data Sherry rce(s) Supporting Document(s) ID Date Data Source [id number] 10/06/2019 07:59:[address] [facility] 1 Clinical Report - Physicians/Mid Levels [facility] Emergency Department [address] [place] [address] Phone #: ext- [phone] 10/06/2019 19:33 Patient: [id number] Sex: M : 1985 Age: 33y Time [...] loses it and often cannot [facility] [place] [facility] for refill; pt [...] Allergies: 2 Clinical Report - Physicians/Mid Levels [facility] Emergency Department [address] [place] [address] Phone #: ext- [phone] 10/06/2019 19:33 Patient: NIRMAL RAMAN [facility]#: [id number] Sex: M : 1985 Age: 33y Iodine. [...] pt is strongly advised to go to [facility] for his albuterol refill. Patient counseled in [...] Inhaler). 3 Clinical Report - Physicians/Mid Levels [facility] Emergency Department [address] [place] [address] Phone #: ext- [phone] 10/06/2019 19:33 Patient: [...] rce(s) Supporting Document(s) ID Date Data Source [id number] 09/17/2019 03:07:[address] [facility] [address] [facility] Emergency Department [address] [place] [address] Phone #: ext [phone] 09/17/2019 14:51 Patient: NIRMAL RAMAN Sex: M [...] 1 inhaler. Refills: 0. Substitution permitted.Pharmacy - [phone] [id number] ; [place] [address]. . -- Justin Nuñez M.D. Name Value Range Interpretation Code Description Data Sherry rce(s) Supporting Document(s) ID Date Data Source [id number] 09/17/2019 03:07:[address] [facility] [address] [facility] Emergency Department [address] [place] [address] Phone #: ext [phone] 09/17/2019 14:51 Patient: NIRMAL RAMAN Sex: M : 1985 Age: 33yWeight: 92.9 kgHeight/Length: 69 inBMI: 30.3ALLERGIES: No Known Drug AllergyDate/Time Medication Administered Medication Ordered Name Value Range Interpretation Code Description Data Sherry rce(s) Supporting Document(s) ID Date Data Source [id number] 09/17/2019 03:07:[address] [facility] [address] [facility] Emergency Department [address] [place] [address] Phone #: ext- [phone] 09/17/2019 14:51 Patient: NIRMAL RAMAN Sex: M : 1985 Age: 33yModerate persistent asthma. No acute exacerbation or status asthmaticus.INSTRUCTIONSPrescription Medications:Proventil HFA 90 mcg/actuation aerosol inhaler Inhale 2 puff every four hours as needed -- and beforeexercise. Dispense 1 inhaler. Refills: 0. Substitution permitted.Pharmacy - [facility] [phone] [phone] ; [place] [address]. .Follow-up:Return to the emergency department if persistent [...] cough and chest tightness. [address] [facility] Emergency Department [address] [place] [address] Phone #: ext- [phone] 09/17/2019 14:51 Patient: [...] the smoke of others. [address] [facility] Emergency Department [address] [place] [address] Phone #: ext- [phone] 09/17/2019 14:51 Patient: [...] Lips or fingernails turning gardner or blue [id number] [place] [address]. All rights reserved. This information is not intended as asubstitute for professional medical care. Always follow your healthcare professional's instructions. You have been given the following additional information: [address] [facility] Emergency Department [address] [place] [address] Phone #: ext- [phone] 09/17/2019 14:51 Patient: NIRMAL RAMAN Sex: M : 1985 Age: 33yAsthma, Acute (Adult)(Electronically signed by Justin Nuñez M.D. 09/17/2019 16:03) Name Value Range Interpretation Code Description Data Sherry rce(s) Supporting Document(s) ID Date Data Source [id number] 09/17/2019 03:07:[address] [facility] 1 Clinical Report - Nurses [facility] Emergency Department [address] [place] [address] Phone #: ext- [phone] 09/17/2019 14:51 Patient: [...] to the 2 Clinical Report - Nurses [facility] Emergency Department [address] [place] [address] Phone #: ext- [phone] 09/17/2019 14:51 Patient: [...] Patient verbalized understanding. Written instructions provided in [place]. The patient was discharged by the physician. He was discharged home and accompanied by family. He left ambulatory and via private vehicle. Family member driving. --15:13 09/17/19 Jennifer Rueda R.N. 15:12 09/17/19. BP: deferred. HR: deferred. RR: deferred. O2 saturation: deferred. Temp: deferred. Pain level now: 0/10. --15:13 09/17/19 Jennifer Rueda R.N. 3 Clinical Report - Nurses [facility] Emergency Department [address] [place] [address] Phone #: ext- [phone] 09/17/2019 14:51 Patient: NIRMAL RAMAN Sex: M : 1985 Age: 33yLocked/Released at 09/17/2019 15:14 by Jennifer Rueda R.N. Name Value Range Interpretation Code Description Data Sherry rce(s) Supporting Document(s) ID Date Data Source [id number] 09/17/2019 03:07:[address] [facility] 1 Clinical Report - Physicians/Mid Levels [facility] Emergency Department [address] [place] [address] Phone #: ext- [phone] 09/17/2019 14:51 Patient: [...] Allergies: 2 Clinical Report - Physicians/Mid Levels [facility] Emergency Department [address] [place] [address] Phone #: ext- [phone] 09/17/2019 14:51 Patient: [...] inhaler. Refills: 0. Substitution permitted. [facility] [id number] ; [place] [address]. . Follow- up: Return to the emergency department if persistent fever or shortness of breath. Follow up with your healthcare provider even if well. Call for the next available appointment. Reason for referral: evaluation and treatment. 3 Clinical Report - Physicians/Mid Levels [facility] Emergency Department [address] [place] [address] Phone #: ext- [phone] 09/17/2019 14:51 Patient: NIRMAL RAMAN Sex: M : 1985 Age: 33y(Electronically signed by Justin Nuñez M.D. 09/17/2019 16:03) Name Value Range Interpretation Code Description Data Sherry rce(s) Supporting Document(s) Procedure Social History Code Duration Value Status Description Data Source(s ) Smoking 07/30/2020 12:00:00 AM EST Non Smoker completed Non Smoke r [facility] ([facility]) Vital Signs ID Date Data Source UNK Name Value Range Interpretation Code Description Data Source(s) Body weight 105.235 kg 105.235 kg [facility] ([facility]) [place] body weight 160 [lb_av] 160 [lb_av] [facility] Body mass index (BMI) [Ratio] 34.3 kg/m2 34.3 k g/m2 [facility] ([facility]) Body weight 232.00 [lb_av] 232.00 [lb_av] [facility] in uniform Body height 69 [in_i] 69 [in_i] [facility] ([facility]) 5'9" Oxygen saturation in Arterial blood by Pulse oximetry 97 % 97 % [facility] ([facility]) Heart rate 107 /min 107 /min [facility] ([facility]) Diastolic blood pressure 90 mm[Hg] 90 mm[Hg] [facility] ([facility]) Systolic blood pressure 130 mm[Hg] 130 mm[Hg] Gosia BA ([facility]) Body weight 105.349 kg 105.349 kg [facility] ([facility]) [place] body weight 160 [lb_av] 160 [lb_av] [facility] ([facility]) Body mass index (BMI) [Ratio] 34.3 kg/m2 34.3 k g/m2 [facility] ([facility]) Body weight 232.25 [lb_av] 232.25 [lb_av] [facility] ([facility]) Body height 69 [in_i] 69 [in_i] [facility] ([facility]) 5'9" Body temperature 96.7 [degF] 96.7 [degF] [facility] ([facility]) Oxygen saturation in Arterial blood by Pulse oximetry 97 % 97 % [facility] ([facility]) Heart rate 91 /min 91 /min [facility] ([facility]) Diastolic blood pressure 92 mm[Hg] 92 mm[Hg] [facility] ([facility]) Systolic blood pressure 138 mm[Hg] 138 mm[Hg] [facility] ([facility]) Body weight 106.312 kg 106.312 kg [facility] ([facility]) Body mass index (BMI) [Ratio] 34.6 kg/m2 34.6 k g/m2 [facility] ([facility]) Body weight 234.38 [lb_av] 234.38 [lb_av] [facility] Body height 69 [in_i] 69 [in_i] [facility] ([facility]) 5'9" Body temperature 96.7 [degF] 96.7 [degF] [facility] ([facility]) Oxygen saturation in Arterial blood by Pulse oximetry 97 % 97 % [facility] ([facility]) Heart rate 86 /min 86 /min [facility] ([facility]) Diastolic blood pressure 84 mm[Hg] 84 mm[Hg] [facility] ([facility]) Systolic blood pressure 122 mm[Hg] 122 mm[Hg] [facility] ([facility]) Body weight 105.859 kg 105.859 kg [facility] ([facility]) Body mass index (BMI) [Ratio] 34.5 kg/m2 34.5 k g/m2 [facility] ([facility]) Body weight 233.38 [lb_av] 233.38 [lb_av] [facility] Body height 69 [in_i] 69 [in_i] [facility] ([facility]) 5'9" Body temperature 97.6 [degF] 97.6 [degF] [facility] ([facility]) Oxygen saturation in Arterial blood by Pulse oximetry 97 % 97 % [facility] ([facility]) Heart rate 82 /min 82 /min [facility] ([facility]) Diastolic blood pressure 90 mm[Hg] 90 mm[Hg] [facility] ([facility]) Systolic blood pressure 122 mm[Hg] 122 mm[Hg] [facility] ([facility]) Body weight 106.596 kg 106.596 kg [facility] ([facility]) Body mass index (BMI) [Ratio] 34.7 kg/m2 34.7 k g/m2 [facility] ([facility]) Body weight 235.00 [lb_av] 235.00 [lb_av] [facility] Body height 69 [in_i] 69 [in_i] [facility] ([facility]) 5'9" Oxygen saturation in Arterial blood by Pulse oximetry 98 % 98 % [facility] ([facility]) Heart rate 91 /min 91 /min [facility] ([facility]) Diastolic blood pressure 70 mm[Hg] 70 mm[Hg] [facility] ([facility]) Systolic blood pressure 120 mm[Hg] 120 mm[Hg] [facility] ([facility])
[2020-10-11] MEDS ORDERED: MONT10TA10 PO (16:51)
[2020-10-11] MEDS ORDERED: SPIR1CAP INH (16:51)
[2020-10-11] MEDS ORDERED: IBUP80TA PO (16:51)
[2020-10-11] MEDS ORDERED: PROAAER10 INH (16:51)
[2020-10-11] MEDS ORDERED: ADV500INH INH (16:51)
[2020-10-11] MEDS ORDERED: FLUT22IN INH (16:51)
[2020-10-11] MEDS ORDERED: ACET1TAB55 PO (16:51)
[2020-10-11 16:56] LABS: NT-PRO BNP 15 PG/ML (<125)
[2020-10-11 17:16] LABS: INR 0.97; PARTIAL THROMBOPLASTIN TIME 36.8 SECONDS (24.2-38.5); PROTHROMBIN TIME 13.1 SECONDS (12.5-14.3)
--- NOTE | 2020-10-11 17:40 | HPEPDOC ---
[facility] Medical History & Physical Date of Admission Oct 11, 2020 Date of Service: Oct 11, 2020 History and Physical CHIEF COMPLAINT: 103 fever last . 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 Pt has had on and off chest pain, loss of taste, loss of appetite, muscle aches, and diarreha 4-5 times over since then. He has been increasingly sob initially with exertion and eventually at rest. He present to [facility] ER with fever 102, cxr: infiltrates, and o2sat 92% room air. Hospitalist was asked to admit for coronavirus pneumonia. PAST MEDICAL HISTORY: asthma, ga on cpap PAST SURGICAL HISTORY: none SOCIAL HISTORY: denies tobacco, etoh, recreational drug use. has covid-19. 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 REVIEW OF SYSTEMS: per HPI for +findings HOME MEDICATIONS: Please see below. PHYSICAL EXAMINATION: VITAL SIGNS: see below GENERAL APPEARANCE: no distress no conversational dypsnea HEENT: moist mm no cervical lad perrla eomi CARDIOVASCULAR: s1s2 rrr LUNGS: diminished faint crackles b/l ABDOMEN: +bs soft nt nd EXTREMITIES:no edema SKIN: tattoo upper back. LABORATORY DATA: See below. IMAGING: see below MICROBIOLOGY: Please see below. 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 Pt has had on and off chest pain, loss of taste, loss of appetite, muscle aches, and diarreha 4-5 times over since then. He has been increasingly sob initially with exertion and eventually at rest. He present to [facility] ER with fever 102, cxr: infiltrates, and o2sat 92% room air. Hospitalist was asked to admit for coronavirus pneumonia. coronavirus -19 pneumonia -iv remdesevir, iv decadron, asa, lovenox. -keep o2sat>90% -cycle inflammatory markers and m onitor for worsening respiratory distress -if elevated procalcitonin, consider ceftriaxone and doxy to cover for bacterial pna -droplet and contact isolation asthma -not in acute exacerbation -prn proventil ga -continuous pulse ox -o2 qhs Vital Signs Vital Signs Date Time Temp Pulse Resp B/P (MAP) Pulse Ox O2 Delivery O2 Flow Rate FiO2 10/11/20 16:16 107 25 94 Room Air 10/11/20 14:45 149/79 (102) 10/11/20 14:12 102.0 Laboratory Data Labs 24H Laboratory Tests 2 10/11/20 15:14: Immature Granulocyte % (Auto) 0.3, Neutrophils (%) (Auto) 79.8H, Lymphocytes (%) (Auto) 12.2L, Monocytes (%) (Auto) 7.6H, Eosinophils (%) (Auto) 0.0, Basophils (%) (Auto) 0.1, Neutrophils # (Auto) 8.1, Lymphocytes # (Auto) 1.2L, Monocytes # (Auto) 0.8, Eosinophils # (Auto) 0.0, Basophils # (Auto) 0.0, Nucleated Red Blood Cells % (auto) 0.0, D-Dimer, Quantitative 801.65H, Anion Gap 7L, Glomerular Filtration Rate > 60.0, Lactic Acid Level 1.4, Calcium Level 8.1L, Ferritin 1243H, Total Bilirubin 0.5, Aspartate Amino Transf (AST/SGOT) 37, Alanine Aminotransferase (ALT/SGPT) 61, Alkaline Phosphatase 64, Lactate Dehydrogenase 383H, Troponin I < 0.02, C-Reactive Protein, Quantitative 13.00H, IT-Vod-U-Type Natriuretic Peptide 15, Total Protein 7.0, Albumin 3.3, Albumin/Globulin Ratio 0.9 10/11/20 15:24: POC pH (Misc Panel) 7.454H, POC Base Excess (Misc Panel) -1.0, POC Saturated Percent O2 (Misc) 94L, POC pO2 (Misc Panel) 65.0L, POC pCO2 (Misc Panel) 32.4L, POC HCO3 (Misc Panel) 22.7, POC Total CO2 (Misc Panel) 24.0 CBC/BMP Laboratory Tests 10/11/20 15:14 Home Medications Scheduled Fluticasone Propionate (Flovent Hfa) 220 Mcg/Act Aer.w.adap, 2 PUFFS INH BID Montelukast Sodium (Montelukast Sodium) 10 Mg Tablet, 10 MG PO DAILY Salmeterol/Fluticasone (Advair 500-50 Diskus) 1 Each Blst.w.dev, 1 PUFF INH BID Tiotropium [place] (Spiriva) 18 Mcg Cap.w.dev, 18 MCG INH DAILY Scheduled PRN Acetaminophen (Acetaminophen) 325 Mg Tablet, 650 MG PO QID PRN for PAIN / FEVER Albuterol Sulfate (Proair Hfa) 8.5 Gm Hfa.aer.ad, 2 PUFFS INH QID PRN for SHORTNESS OF BREATH Ibuprofen (Ibuprofen) 800 Mg Tablet, 800 MG PO TID PRN for PAIN Allergies Coded Allergies: iodine (Verified Allergy, Unknown, 10/11/20) A-FIB/CHADSVASC A-FIB History Current/History of A-Fib/PAF?: No Current PO Anticoag Therapy: No Age/Risk Factor Scoring CHADSVASC: CHADSVASC Response (Comments) Value Age Risk Factor Age < 65 years old 0 Gender Risk Factor Male 0 Hx of CHF No 0 Hx of HTN No 0 Hx of Stroke/TIA/or VTE No 0 Hx of Diabetes No 0 Hx of Vascular Disease No 0 Total 0 Treatment Treatment ordered: NONE MASON CASAREZ MD Oct 11, 2020 17:20
[2020-10-11] MEDS: LEVALBUTEROL HFA 45MCG/ACT 15 GM INHALER INH SCH (19:37)
[2020-10-11 23:58] VITALS: BP 149/93
[2020-10-12 00:17] VITALS: O2SAT 94
[2020-10-12] MEDS ORDERED: REMDESIVIR 200 MG in NS 250 ML IV ONE (01:00)
[2020-10-12] MEDS: LEVALBUTEROL HFA 45MCG/ACT 15 GM INHALER INH SCH ×3 (02:06→14:31)
[2020-10-12] MEDS ORDERED: SODIUM CHLORIDE 0.9% INJ 10 ML SYR IV ONE (03:00)
[2020-10-12 04:00] VITALS: BP 120/71
[2020-10-12 08:00] VITALS: BP 130/78
[2020-10-12 08:34] LABS: BASO % 0.1 % (0.0-1.0); HEMATOCRIT 44.6 % (42.0-52.0); HEMOGLOBIN 15.4 g/dl (13.5-17.5); LYMPH % 11.9 % (24.0-44.0); MEAN CORPUSCULAR HGB CONC 34.5 g/dl (32.0-36.5); MEAN CORPUSCULAR VOLUME 89.7 fl (80.0-96.0); MONO # 0.6 10^3/uL (0.0-0.8); MONO % 6.6 % (0.0-5.0); NEUTROPHILS # 6.7 10^3/uL (1.5-8.5); NEUTROPHILS % 80.4 % (36.0-66.0); PLATELET COUNT, AUTOMATED 255 10^3/uL (150-450); RED BLOOD COUNT 4.97 10^6/uL (4.30-6.10); WHITE BLOOD COUNT 8.4 10^3/uL (4.0-10.0)
[2020-10-12] MEDS ORDERED: ENOXAPARIN 40MG/0.4ML SYRINGE (J1650 PER 10MG) SC SCH (09:00)
[2020-10-12] MEDS ORDERED: dexameTHASONE 4 MG/ML 1ML VIAL (J1100 PER 1MG) IV SCH (09:00)
[2020-10-12] MEDS ORDERED: ASPIRIN 81 MG ENTERIC TAB PO SCH (09:00)
[2020-10-12 09:04] LABS: ALBUMIN 3.3 GM/DL (3.2-5.2); ALT/SGPT 60 U/L (12-78); BILIRUBIN,DIRECT 0.1 MG/DL (0.0-0.2); BILIRUBIN,TOTAL 0.2 MG/DL (0.2-1.0); BLOOD UREA NITROGEN 11 MG/DL (7-18); CALCIUM LEVEL 8.9 MG/DL (8.5-10.1); CARBON DIOXIDE LEVEL 24 MEQ/L (21-32); CHLORIDE LEVEL 103 MEQ/L (98-107); CREATININE FOR GFR 0.94 MG/DL (0.70-1.30); GLOMERULAR FILTRATION RATE > 60.0 (>60); GLUCOSE, FASTING 154 MG/DL (70-100); MAGNESIUM LEVEL 2.1 MG/DL (1.8-2.4); POTASSIUM SERUM 4.2 MEQ/L (3.5-5.1); SODIUM LEVEL 138 MEQ/L (136-145); TOTAL PROTEIN 7.2 GM/DL (6.4-8.2)
[2020-10-12 09:47] VITALS: O2SAT 96
[2020-10-12 12:00] VITALS: BP 136/64
[2020-10-12 13:45] VITALS: O2SAT 96
--- NOTE | 2020-10-12 14:47 | DS.PDOC ---
Discharge Summary General Date of Admission Oct 11, 2020 at 16:16 Date of Discharge 10/12/20 Discharge Summary PROCEDURES PERFORMED DURING STAY: [None]. ADMITTING DIAGNOSES: covid-19 infection possible superimposed bacterial pneumonia hx of asthma DISCHARGE DIAGNOSES: covid-19 infection possible superimposed bacterial pneumonia hx of asthma COMPLICATIONS/CHIEF COMPLAINT: Pneumonia Due To Covid-19. 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, and was found to have a Fever of 103 on routine screening, tested positive for coronavirus -19, and given tylenol and ibuprofen and subsequently sent home. Pt has had on and off chest pain, loss of taste, loss of appetite, muscle aches, and diarreha 4-5 times over since then. He has been increasingly sob initially with exertion and eventually at rest. He present to [facility] ER with fever 102, cxr: infiltrates, and o2sat 92% room air. Hospitalist was asked to admit for coronavirus pneumonia. HOSPITAL COURSE: patient was admitted to covid floor for IV steroids, remdesevir and oxygen supplementation. Patient was found to be saturating well on RA, with mild desaturation on exertion to 89% with rebound to 92% with 10 seconds of rest. Patient was provided home oxygen 2L NC for exertional desauration, and was given a course of doxycycline. He will continue a 7 day course of dexamethasone on discharge. Patient was stable at the time of DC, saturating at 96% on room air, had not chest pain, no shortness of breath, no subjective fevers or chills. DISCHARGE MEDICATIONS: Please see below. ALLERGIES: Please see below. PHYSICAL EXAMINATION ON DISCHARGE: VITAL SIGNS: please see below General: NAD, comfortable HEENT: PERRLA, EOMI, sclerae clear Neck: supple, normal ROM, no JVD Respiratory: lungs CTAB, no wheeze, no rales, no crackles CVS: RRR, normal S1, S2, no murmurs Abdo: soft, no masses, no hepatosplenomegaly, BS+, no rebound tenderness Extremities: no edema, pulses 2+ MSK: no joint deformities, normal ROM Neuro: no focal neuro deficits, moving all 4 extremities, CN2-12 intact. Streng th 5/5 in all 4 extremities. No nystagmus. Psych: calm, cooperative, AAO x 3 LABORATORY DATA: Please see below. IMAGING: CXR (10/11/20) Multiple bilateral areas of peripheral interstitial infiltrate have developed consistent with pneumonia. PROGNOSIS: good ACTIVITY: [As tolerated]. DIET: as tolerated DISCHARGE PLAN: DC home with PCP follow and home O2. DISPOSITION: home DISCHARGE INSTRUCTIONS: . Please follow-up with your primary care doctor within 3-5 days . Please taking medications as prescribed. . If you develop bleeding, chest pain, shortness of breath, seizures, nausea, fevers, or otherwise worsening of your symptoms, please call 911 or return to the nearest emergency room DISCHARGE CONDITION: Stable TIME SPENT ON DISCHARGE: 35 minutes Vital Signs/I&Os Vital Signs Date Time Temp Pulse Resp B/P (MAP) Pulse Ox O2 Delivery O2 Flow Rate FiO2 10/12/20 13:45 96 Room Air 10/12/20 12:00 98.7 90 19 136/64 (88) I&O- Last 24 Hours up to 6 AM 10/12/20 06:00 Intake Total 590 ml Output Total 0 ml Balance 590 ml Laboratory Data Labs 24H Laboratory Tests 2 10/11/20 15:14: Immature Granulocyte % (Auto) 0.3, Neutrophils (%) (Auto) 79.8H, Lymphocytes (%) (Auto) 12.2L, Monocytes (%) (Auto) 7.6H, Eosinophils (%) (Auto) 0.0, Basophils (%) (Auto) 0.1, Neutrophils # (Auto) 8.1, Lymphocytes # (Auto) 1.2L, Monocytes # (Auto) 0.8, Eosinophils # (Auto) 0.0, Basophils # (Auto) 0.0, Nucleated Red Blood Cells % (auto) 0.0, Prothrombin Time 13.1, Prothromb Time International Ratio 0.97, Activated Partial Thromboplast Time 36.8, Fibrinogen 789H, D-Dimer, Quantitative 801.65H, Anion Gap 7L, Glomerular Filtration Rate > 60.0, Lactic Acid Level 1.4, Calcium Level 8.1L, Ferritin 1243H, Total Bilirubin 0.5, Aspartate Amino Transf (AST/SGOT) 37, Alanine Aminotransferase (ALT/SGPT) 61, Alkaline Phosphatase 64, Lactate Dehydrogenase 383H, Troponin I < 0.02, C- Reactive Protein, Quantitative 13.00H, CJ-Ggs-Q-Type Natriuretic Peptide 15, Total Protein 7.0, Albumin 3.3, Albumin/Globulin Ratio 0.9, Procalcitonin 0.22 10/11/20 15:24: POC pH (Misc Panel) 7.454H, POC Base Excess (Misc Panel) -1.0, POC Saturated Percent O2 (Misc) 94L, POC pO2 (Misc Panel) 65.0L, POC pCO2 (Misc Panel) 32.4L, POC HCO3 (Misc Panel) 22.7, POC Total CO2 (Misc Panel) 24.0 10/12/20 07:19: Immature Granulocyte % (Auto) 1.0, Neutrophils (%) (Auto) 80.4H, Lymphocytes (%) (Auto) 11.9L, Monocytes (%) (Auto) 6.6H, Eosinophils (%) (Auto) 0.0, Basophils (%) (Auto) 0.1, Neutrophils # (Auto) 6.7, Lymphocytes # (Auto) 1.0L, Monocytes # (Auto) 0.6, Eosinophils # (Auto) 0.0, Basophils # (Auto) 0.0, Nucleated Red Blood Cells % (auto) 0.0, Anion Gap 11, Glomerular Filtration Rate > 60.0, Calcium Level 8.9, Total Bilirubin 0.2#, Aspartate Amino Transf (AST/SGOT) 27, Alanine Aminotransferase (ALT/SGPT) 60, Alkaline Phosphatase 64, Total Protein 7.2, Albumin 3.3, Albumin/Globulin Ratio 0.8, Magnesium Level 2.1, Direct Jesus irubin 0.1 CBC/BMP Laboratory Tests 10/11/20 15:14 10/12/20 07:19 Discharge Medications Scheduled Dexamethasone (Dexamethasone) 6 Mg Tablet, 1 TAB PO DAILY Doxycycline Monohydrate (Doxycycline) 100 Mg Capsule, 1 CAP PO BID Fluticasone Propionate (Flovent Hfa) 220 Mcg/Act Aer.w.adap, 2 PUFFS INH BID, (Reported) Montelukast Sodium (Montelukast Sodium) 10 Mg Tablet, 10 MG PO DAILY, (Reported) Salmeterol/Fluticasone (Advair 500-50 Diskus) 1 Each Blst.w.dev, 1 PUFF INH BID Tiotropium [place] (Spiriva) 18 Mcg Cap.w.dev, 18 MCG INH DAILY Scheduled PRN Acetaminophen (Acetaminophen) 325 Mg Tablet, 650 MG PO QID PRN for PAIN / FEVER, (Reported) Albuterol Sulfate (Proair Hfa) 8.5 Gm Hfa.aer.ad, 2 PUFFS INH QID PRN for SHORTNESS OF BREATH Allergies Coded Allergies: iodine (Verified Allergy, Unknown, 10/11/20) CIELO DAVID MD Oct 12, 2020 14:47
[2020-10-12] MEDS ORDERED: SPIR1CAP INH (15:03)
[2020-10-12] MEDS ORDERED: DEXA6TAB PO (15:03)
[2020-10-12] MEDS ORDERED: PROAAER10 INH (15:03)
[2020-10-12] MEDS ORDERED: ADV500INH INH (15:03)
[2020-10-12] MEDS ORDERED: DOXY-350 PO (15:03)
[2020-10-13] MEDS ORDERED: REMDESIVIR 100 MG in NS 250 ML IV SCH (01:00)
[2020-10-13] MEDS ORDERED: SODIUM CHLORIDE 0.9% INJ 10 ML SYR IV SCH (02:00)
[2020-10-15 14:09] LABS: MYCOPLASMA PNEUMONIAE IgG <100 U/mL (0-99); MYCOPLASMA PNEUMONIAE IgM <770 U/mL (0-769)
== END 2020-10-12 18:00 | disposition home or self-care (01) | DRG 177 ==
LOC: EDBD 13:57 → M ED 13:57 → M ED INP 16:16 → M 4MAIN 23:58
PROVIDERS: ADMIT General Practice; ATTEND Family Medicine
PROC: XW033E5 Introduction of Remdesivir Anti-infective into Peripheral Vein, Percutaneous Approach, New Technology Group 5 (ICD-10-PCS; principal; 2020-10-11)
PROC: 3E0333Z Introduction of Anti-inflammatory into Peripheral Vein, Percutaneous Approach (ICD-10-PCS; 2020-10-11)
DX: U07.1 COVID-19 (principal); J15.9 Unspecified bacterial pneumonia; J45.909 Unspecified asthma, uncomplicated; G47.33 Obstructive sleep apnea (adult) (pediatric); Z79.899 Other long term (current) drug therapy; Z88.8 Allergy status to other drugs, medicaments and biological substances